=== PATIENT | male | born 1930 | race Caucasian/White ===

== ENCOUNTER → 2017-01-01 | Outpatient (CLI) | payer MEDICARE, OTHER ==
[~2017-01-01] MED LIST: ALBUTEROL2.5 MG/0.5 INH; ALBUTEROL2.5 MG/3 M INH; ALBUTEROL2.5 MG/31 INH; ALDACTONE25 MG PO; ASACOL HD800 MG PO; AUGMENTIN 875-1 EACH PO; B COMPLEX1 EACH PO; BACITRACIN1 PKT TOP; BENADRYL 2% CREAM2 % TOP; BENADRYL12.5 MG/5 PO; BUMETANIDE2 MG PO; CIPRO500 MG PO; CITROMA296 ML PO; COLACE100 MG PO; COMBIVENT RESPIM4 GM INH; COMPLEX B-1001 EACH PO; CORDARONE,PACE200 MG PO; COREG12.5 M1 PO; COREG12.5 MG PO; COREG6.25 MG PO; COZAAR50 MG PO; DELTASONE20 MG PO; DOXYCYCLINE100 MG PO; DULERA 200 MCG/51 EA INH; ELIQUIS5 MG PO; ENTRESTO 24 MG1 EACH PO; FEOSOL325 MG PO; FLEXERIL10 MG PO; FLORASTOR250 MG PO; GUAIFENESIN-DM10 ML PO; IPRAT-ALBUT 0.5-3 ML INH; K-TAB 10MEQ10 MEQ PO; K-TAB ER20 MEQ PO; KLOR-CON 1010 MEQ PO; LANOXIN (DIGI125 MCG PO; LASIX80 MG PO; LEVAQUIN 250 M250 MG PO; LEVOTHROID (S112 MCG PO; LIPITOR20 M1 PO; LIPITOR40 MG PO; MAG-OX-400(241400 MG PO; MAGNESIUM OXID420 MG PO; MAGOX 400400 MG PO; METOLAZONE5 MG PO; MILK OF MA400 MG/5 M PO; MIRALAX17 GM PO; MULTI VITAMIN1 EACH PO; MYCOLOG OINTMEN15 GM TOP; MYCOSTATIN CREA30 GM TOP; NORCO 10-325 T1 EACH PO; NORCO 5-325 MG1 TAB PO; OSCAL + D500 MG PO; PERCOCET 5-3251 EACH PO; PROTONIX40 MG PO; PROVENTIL OR V6.7 GM INH; ROBITUSSIN DM120 ML PO; SENNA8.6 MG PO; SENOKOT S (S1 TABLET PO; SINEMET 25-1001 EACH PO; SPIRIVA HANDIHA1 KIT INH; SPIRONOLACTONE25 MG PO; STOOL SOFTENER1 EACH PO; SYMBICORT 16010.2 GM INH; SYNTHROID100 MCG PO; THERAGRAN-M1 TAB PO; TYLENOL325 MG PO; ULTRAM50 MG PO; VITAMIN D2000 UNIT PO; VOLTAREN 1% GE100 GM TOP; XARELTO15 MG PO; ZAROXOLYN2.5 MG PO; ZAROXOLYN5 MG PO; ZYLOPRIM100 MG PO; [UNRECOGNIZED DRUG - OTHER] PO
== END | disposition disaster alternative care site (69) ==
LOC: GRAD 12-25 10:00
DX: Z48.812 Encounter for surgical aftercare following surgery on the circulatory system (principal); Z95.828 Presence of other vascular implants and grafts

== ENCOUNTER → 2017-01-11 | Outpatient (CLI) | payer MEDICARE, OTHER | END | disposition disaster alternative care site (69) | LOC: GRAD 11:59 | DX: I50.42 Chronic combined systolic (congestive) and diastolic (congestive) heart failure (principal); I35.0 Nonrheumatic aortic (valve) stenosis; R06.00 Dyspnea, unspecified; I51.7 Cardiomegaly ==

== ENCOUNTER 2017-01-18 12:49 | Inpatient (IN) | payer MEDICARE, OTHER ==
[~2017-01-18] VITALS: Ht 185.4 cm; Wt 100.9 kg
--- NOTE | ~2017-01-18 | CON ---
PATIENT'S NAME: OLGA FOSTER [facility] AGE: 86 Y [address] ROOM: G6315 [place], [place] [address] LOCATION: GPCU ADMIT DATE: 01/18/2017 Consultation DISCHARGE DATE: FAMILY PHYSICIAN: Remy Gilman MD ATTENDING PHYSICIAN: EMMA PEREZ DATE OF CONSULTATION: 01/19/2017 REASON FOR CONSULTATION: DOREEN on CKD stage 3 to stage 4. 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 On routine lab evaluation, creatinine was found to be 3.8, which is much higher than his baseline of 1.8 to 2.5 Nephrology consultation has been called for non-oliguric DOREEN on CKD 3-4. As per the old record suggested that he was well compensated on fairly aggressive diuretic regimen in the past. However most recently, he was started on Entresto and since then, his blood pressure appears to be low along with complain of some diarrhea. He went to [facility] when his systolic blood pressure was found to be in 70s, he stopped the Entresto since yesterday. However, when he presented to the ER, his blood pressure was between 100-110 range. He was also complaining of some orthostatic symptoms including dizziness and lightheadedness especially while changing posture. No complaint of chest pain or palpitation, but has significant shortness of breath, orthopnea, and PND. No urinary symptoms including dysuria, urgency, however, has noticed significant decrease in urinary output in the last couple of days. As mentioned above, he had some diarrhea after starting Entresto, but no history of nausea, vomiting, or hematochezia. REVIEW OF SYSTEMS: GENERAL: No fever. No chills or rigor. HEENT: No sore throat. No sinus congestion. CVS: No chest pain. Significant exertional shortness of breath. Some leg swelling. RESPIRATORY: Significant shortness of breath. No cough. No wheezing. GENITOURINARY: No pain with urination. No increased frequency. No nocturia. GASTROINTESTINAL: No abdominal pain. No abdominal distention. No nausea or vomiting, but diarrhea after starting Entresto. NEUROLOGIC: No weakness. No seizures. SKIN: No rash. No itching. ALLERGIES: No seasonal allergy. No hayfever. ENDOCRINE: No heat intolerance. No cold intolerance. PSYCHIATRIC: No sadness. No crying spells. No history of panic attack. PAST MEDICAL HISTORY: 1. Coronary artery disease, but no history of DSA or stenting. 2. Ischemic cardiomyopathy with HFrEF, ejection fraction of 30%-40% on most recent echo. 3. Abdominal aortic aneurysm, status post stenting. 4. CKD stage 3 to 4 with baseline creatinine of 1.8 to 2.5. 5. Anemia of chronic disease. 6. Parkinson disease. 7. Atrial fibrillation, not on long-term anticoagulation secondary to GI bleed. 8. CVA. 9. 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 10. COPD. 11. Hypothyroidism.PATIENT'S NAME: OLGA FOSTER [facility] AGE: 86 Y [address] ROOM: [place] [address] LOCATION: [facility] ADMIT DATE: 01/18/2017 Consultation DISCHARGE DATE: FAMILY PHYSICIAN: Remy Gilman MD ATTENDING PHYSICIAN: EMMA PEREZ MEDICATIONS: As per DEC. ALLERGIES: TO IODINATED CONTRAST. SOCIAL HISTORY: Lifelong smoker, stopped 3 years pack; used to drink alcohol as well, stopped few years ago. Lives at home with his . FAMILY HISTORY: Negative for any heart disease or any kidney disease. PHYSICAL EXAMINATION: VITAL SIGNS: Blood pressure at this point is 100/50, respiratory rate 18 to 22, saturation 92% on room air, heart rate 72. GENERAL: Not in apparent distress. HEAD: Moist mucous membranes. Bilateral PERRLA, EOMI. NECK: Positive for JVD. No thyromegaly or lymphadenopathy. CVS: S1 and S2 normal, regular rate and rhythm. No murmur, rub, gallop. CHEST: Bibasilar crackles. Otherwise no wheezing or rhonchi. ABDOMEN: Soft, nontender, nondistended. Bowel sounds present. EXTREMITIES: No cyanosis, clubbing, jaundice. At least 1+ dependent edema. There are bilateral venous stasis changes in bilateral lower extremities. MUSCULOSKELETAL: No limitation of range of motion. SKIN: No pallor, cyanosis, icterus. As mentioned above, there are venous stasis changes on bilateral lower extremities. DISABILITY ADVOCATE: Alert and oriented x3. No gross findings. LAB: Troponin 0.0304. CBC: Hemoglobin 11.8, WBC 8.3, platelet 189. Chemistry: Sodium 135, potassium 3.7, chloride 98, bicarbonate 23, BUN 72, creatinine 3.1, glucose 109, calcium 8.8, total protein 7.9, albumin 3.7, AST 29, ALT 18, alkaline phosphatase 102, total bilirubin 0.6. UA specific gravity 1.010, pH 6.5, positive LE, negative nitrite, negative protein, positive 1+ blood, wbc's 2-5, rbc's rare, rare bacteria. Urine sodium 48, urine potassium 71, urine osmolality 324. ProBNP 2303. ASSESSMENT AND PLAN: 1. Decompensated systolic heart failure with increasing weight gain and shortness of breath possibly secondary to failure of diuresis with hypotension after starting Entresto. We will hold the Entresto for now and will also decrease the Coreg dose to 3.125 mg from tomorrow and hold Coreg if the systolic blood pressure less than 120. The patient was given a 2 mg dose of Bumex along with 10 mg of metolazone, the creatinine has improved significantly from 3.8 to 3.1 this morning. We will continue on Bumex and metolazone at the current dose and with holding antihypertensive medication will help in dialysis. We need a Mai catheter for strict intake output monitoring. We will order renal ultrasound. Please do daily standing weight. Avoid any further nephrotoxin exposure and maintain hemodynamic stability with MAP more than 65.PATIENT'S NAME: OLGA FOSTER [facility] AGE: 86 Y [address] ROOM: [id number] [place] [id number] LOCATION: [facility] ADMIT DATE: 01/18/2017 Consultation DISCHARGE DATE: FAMILY PHYSICIAN: Remy Gilman MD ATTENDING PHYSICIAN: EMMA PEREZ 2. Decompensated heart failure, diuresis as above. Cardiology is on board. They want the ICD to be interrogated. The patient has ischemic cardiomyopathy. We will repeat the echocardiography. If the ejection fraction drops further, the patient probably will need a cardiac cath. Further recommendation as per Cardiology. 3. Acute kidney injury on chronic kidney disease stage 3 to stage 4, possibly secondary to cardiorenal syndrome. We will diurese as above. No more Entresto at this point, especially in context of acute kidney injury, we will restart it when necessary. Decrease Coreg dose were to get some adequate diuresis with elevation of blood pressure. 4. Atrial fibrillation, not on long-term anticoagulation due to gastrointestinal bleed. Currently, Cardiology is following. We will defer further management as per Cardiology. 5. Anemia of chronic disease. Hemoglobin is in the goal range. At this point, we will just continue to monitor it. Thank you for allowing me to participate in this patient's care. We will closely monitor the patient's progress along with you. SAUD JACOBSEN MD /modl /[id number] d: 01/19/17 1919 t: 01/20/17 1307, CONSULTATION REPORT
--- NOTE | ~2017-01-18 | HP ---
PATIENT'S NAME: OLGA FOSTER [facility] AGE: 86 Y [address] ROOM: [address] [place], [place] [address] LOCATION: GPCU ADMIT DATE: 01/18/2017 History & Physical DISCHARGE DATE: FAMILY PHYSICIAN: Remy Gilman MD ATTENDING PHYSICIAN: EMMA PEREZ DATE OF SERVICE: CHIEF COMPLAINT: Weight gain and increasing shortness of breath. HISTORY OF PRESENT ILLNESS: An 86-year-old gentleman with a past medical history of coronary artery disease, ischemic cardiomyopathy, heart failure with reduced ejection fraction, as well as chronic kidney disease stage 3-4, presented to the emergency department after he keeps gaining on weight as well as getting more short of breath over the course of last 2 weeks. He was seen in his primary care physician's office on January 09, 2017, as well as January 16, 2017. Primary care physician is Dr. Gilman, who gave him on the first encounter IV Lasix and then put him on Entresto. The patient today stated that he was not able to get a lot of volume off him, and he is getting increased swelling in his legs, and he has gained 13 pounds of weight in the last 2 weeks. He also takes blood pressure at home, and his blood pressure was low in home with the systolics in 86 and 76. Today, he is accompanied by his daughter. On further inquiry, he did describe that he is having diarrhea since he is taking this new medication Entresto prescribed Dr. Gilman. On further review of system, he is endorsing lightheadedness, but denied any chest pain, any palpitations, any burning on urination, PND, or orthopnea. He did endorse having bloating of his stomach with diarrhea, but no blood was witnessed in the stools. REVIEW OF SYSTEMS: All other systems were reviewed and were negative except for what is mentioned in the HPI. PAST MEDICAL HISTORY: Coronary artery disease, no history of stents; ischemic cardiomyopathy with ejection fraction 30% to 40% on the last echo; chronic kidney disease stage 3- 4; abdominal aortic aneurysm, status post stenting; anemia of chronic disease; hypertension; Parkinson's; atrial fibrillation, not on any anticoagulation anymore secondary to recurrent GI bleeding; CVA; history of left atrial thrombus; COPD; hypothyroidism. MEDICATIONS: Please see MAR. PATIENT'S NAME: OLGA FOSTER [facility] AGE: 86 Y [address] ROOM: [address] [place] [address] LOCATION: [facility] ADMIT DATE: 01/18/2017 History & Physical DISCHARGE DATE: FAMILY PHYSICIAN: Remy Gilman MD ATTENDING PHYSICIAN: EMMA PEREZ ALLERGIES: THE PATIENT IS ALLERGIC TO IODINATED CONTRAST. SOCIAL HISTORY: The patient is a lifelong smoker, quit smoking 3 years ago. Lives at home with his . FAMILY HISTORY: Family history is negative for any heart disease. PHYSICAL EXAMINATION: VITAL SIGNS: Blood pressure 147/67, 18, 92% on room air, heart rate 72. GENERAL: No acute distress. Alert and oriented x3. HEAD: Atraumatic, normocephalic. EYES: Nonicteric. No pallor. OROPHARYNX: Moist mucous membranes. CARDIOVASCULAR S1, S2. Systolic ejection murmur at the apex radiating to the axilla. LUNGS: Bilateral crepitations, basal and diffuse expiratory wheezes. ABDOMEN: Soft, some tenderness noted. EXTREMITIES: Left lower extremity edema. PSYCHIATRIC: Normal affect, mood, and speech. NEUROLOGIC: Cranial nerves 2 through 12 intact. No motor or sensory deficit. X-RAYS: Chest x-ray was done in the emergency department which on my review did show some mild vascular congestion without any definitive infiltrate or pneumothorax. EKG was done, which showed paced ventricular rhythm. LAB WORK: Lab work in the emergency department today showed a proBNP of 2303. Troponin first set was 0.304. White count of 9.0, hemoglobin 13, platelets 215. BUN 74, creatinine of 3.8, creatinine of note was 2.4 on 01/09/2017. Urinalysis is pending. TSH is 5.89. ASSESSMENT AND PLAN: 1. Acute congestive heart failure, systolic. 2. Heart failure with reduced ejection fraction, exacerbation, atrial fibrillation, status post ablation/pacemaker, not on oral anticoagulation. 3. Acute kidney injury on top of chronic kidney disease, stage 3-4. Creatinine on 01/09/2017 was 2.4 and today it is 3.8. 4. Elevated troponins. 5. Anemia of chronic disease. 6. Hypertension. PATIENT'S NAME: OLGA FOSTER [facility] AGE: 86 Y [address] [place]: [facility] [place], [place] [address] LOCATION: [facility] ADMIT DATE: 01/18/2017 History & Physical DISCHARGE DATE: FAMILY PHYSICIAN: Remy Gilman MD ATTENDING PHYSICIAN: EMMA PEREZ 7. Parkinsonism. 8. History of left atrial thrombus, not on any anticoagulation. 9. History of cerebrovascular accident. PLAN: We are going to admit this patient to the PCU. The patient has advanced multiple comorbidities. Given that he was given Lasix and he is having diarrhea, there is a question that whether it is prerenal or cardiorenal in etiology. We will obtain nephrology consultation to help with that. At this point, given his chest x-ray findings and physical findings, I believe he is volume overloaded and will need a bigger dose of Bumex in hope that his kidney function improves with that. He also has complicated heart failure and recent medication, Entresto, being started by his primary care and dye colorist dyer, Dr. Gilman. I would obtain a cardiology consultation to optimize the medications on that. The patient is not on any therapeutic oral anticoagulation. We would continue the heparin with the DVT prophylactic doses. Once the home medications are reconciled, we will resume the home medications as appropriate. Code status was discussed with the daughter and the patient is full code. MD CASTRO GIVENS/ignacio /[id number] D: [id number] T: [id number] HISTORY & PHYSICAL
--- NOTE | ~2017-01-18 | CON ---
PATIENT'S NAME: OLGA REES [facility] AGE: 86 Y [address] ROOM: [address] [place] [address] LOCATION: GPCU ADMIT DATE: 01/18/2017 Consultation DISCHARGE DATE: FAMILY PHYSICIAN: Remy Gilman MD ATTENDING PHYSICIAN: EMMA PEREZ REASON FOR CONSULT: CHF exacerbation. HISTORY OF PRESENT ILLNESS: Mr. Rees is a pleasant 86-year-old male with history of heart failure with reduced ejection fraction. He has been on followup with Dr. Ambriz. The patient stated that he was recently started on Entresto and since then he has been having diarrhea with 2 to 3 loose watery stools per day. He is also being monitored by the [facility] and the patient had blood pressure checked today and was found to be hypotensive with systolic blood pressure in the 70s and was advised by the remote monitoring at the [facility] to seek medical attention. The patient was brought here for further management. According to his daughter, the patient is physically not very active and his functional capacity is limited to going from one room to another. He does not usually go to even collect his mail and his movements are usually confined to the home. He uses a walker. He denied any chest pain. He has chronic shortness of breath; however, denied any worsening. He denied any palpitations. No history of presyncope or syncopal episodes. PAST MEDICAL HISTORY: The patient has a past medical history of heart failure with reduced ejection fraction, history of possible ND, status post ICD placement, history of chronic atrial fibrillation, not on oral anticoagulation due to history of recurrent GI bleed, hypertension, history of left atrial appendage thrombus, COPD, history of CVA, obesity, and CKD. PERSONAL HISTORY: He quit smoking several years ago. He used to drink alcohol every day in the past and has stopped for last few years. SOCIAL HISTORY: The patient is and lives with his . MEDICATIONS: His current cardiac medications at the time of admission included: 1. Amiodarone 200 mg daily. 2. Atorvastatin 20 mg daily. 3. Carvedilol 6.25 mg b.i.d. 4. Furosemide 80 mg b.i.d. 5. Metolazone 2.5 mg daily as needed. PATIENT'S NAME: OLGA REES [facility] AGE: 86 Y [address] ROOM: [address] [place], [place] [address] LOCATION: GPCU ADMIT DATE: 01/18/2017 Consultation DISCHARGE DATE: FAMILY PHYSICIAN: Remy Gilman MD ATTENDING PHYSICIAN: EMMA PEREZ 6. Potassium 10 mEq twice daily. 7. Spironolactone 12.5 mg daily. The patient was tried on Entresto; however due to diarrhea, it was discontinued. PHYSICAL EXAMINATION: GENERAL: On examination, the patient is awake, alert, and oriented, and in no apparent distress. VITAL SIGNS: His pulse rate is 68 beats per minute. Blood pressure on lying down is 133/63, on sitting up it is 136/60 and on standing up 136/68. The patient is afebrile HEENT: His head is atraumatic and normocephalic. Tongue is moist. NECK: No significant cervical lymphadenopathy is present. No significant jugular venous distention is present. CARDIOVASCULAR: S1, S2 are audible. They are irregular in rate and rhythm. Grade 3/6 ejection systolic murmur is audible all over precordium. RESPIRATORY: Bilateral vesicular breath sounds are audible with prolonged expiration. Bilateral expiratory rhonchi are audible. ABDOMEN: Abdomen is distended. It is soft, nontender. Bowel sounds are present. EXTREMITIES: Showed 3+ bilateral pedal edema up to knee. NEUROLOGIC: The patient is awake, alert, and oriented. SKIN: Skin is warm and dry. LABORATORY DATA: Sodium 135, potassium 4.3, chloride 95, CO2 25, glucose 98, BUN 74, creatinine 3.8. His previous creatinine level in May 2016 was 1.3 and his baseline was 1.4 to 1.7. AST 29, ALT 18, CPK 96, CK-MB 3.9, troponin 0.26, proBNP 2303. White blood cell count 9, hemoglobin 13, platelet count 215. His recent CT scan of the chest showed cardiac enlargement with no vascular congestion. His echocardiogram in March 2015 showed ejection fraction of 35% to 40%. His ASH showed left atrial appendage thrombus and spontaneous echo contrast in left atrial appendage and plmpmvmg-uu-ufllyy aortic insufficiency. ASSESSMENT AND PLAN: 1. Heart failure with reduced ejection fraction. 2. Ischemic cardiomyopathy, status post internal cardioverter defibrillator placement. 3. Mild elevation in troponin. 4. Sjvyx-dk-garfqch kidney disease. 5. Obesity. 6. Chronic obstructive pulmonary disease. 7. Hypothyroidism. 8. Abdominal aortic aneurysm, status post repair. PATIENT'S NAME: OLGA REES [facility] AGE: 86 Y [address] ROOM: [place] [address] LOCATION: GPCU ADMIT DATE: 01/18/2017 Consultation DISCHARGE DATE: FAMILY PHYSICIAN: Remy Gilman MD ATTENDING PHYSICIAN: EMMA PEREZ RECOMMENDATIONS: Please monitor the patient on Telemetry. Monitor intake and output and daily weights. In view of worsening of renal function, diuretics are being held, pending nephrology evaluation. Continue medical therapy with amiodarone. Obtain ICD interrogation. Obtain 2D echocardiogram in a.m. if not done recently. Obtain medical records from Dr. Ambriz's office. Restart diuretics once renal functions are stable. The patient has a history of atrial fibrillation; however has had recurrent GI bleeds and he could not tolerate anticoagulants in the past. Discussed with the patient and his daughter risks and benefits of anticoagulation and they do not want retrial of anticoagulation. The patient was also referred for LARIAT procedure in the past; however, in view of left atrial appendage thrombus, it could not be done. The patient also has very poor functional capacity. In view of his comorbid medical conditions, poor functional capacity, and advanced age , overall prognosis is guarded. We will maximize medical therapy as tolerated. Management of his non cardiac medical problems per hospitalist team. We will follow the patient along with you. The plan of care was discussed with the patient, his , and nursing staff. Thank you for allowing us in taking part in the care of this pleasant patient. MD MAGDALENA CROWLEY/ignacio /[id number] d: 01/19/17 0300 t: 01/22/17 1422, CONSULTATION REPORT
--- NOTE | ~2017-01-18 | ECHO ---
Transthoracic Echocardiography Report (TTE) Demographics Patient Name OLGA FOSTER Date of Study 01/19/2017 Patient Number [id number] Visit Number [id number] Date of 1930 Room Number [address]15 Gender Male Number Age 86 year(s) Referring [facility] Remy Oakes Superintendent [employer] Evie Wilder RVT, Physician [facility] Physician Interpreting Julia Chisholm Stylist Apprentice Physician A Supervising Ordering Guy García MD, MD/MLP Physician Nurse Stress Screener And Blender Conclusions Contractility Score Summary At rest the following contractility abnormalities were noted: Hypokinesis of the Mid jessenia-lateral, the Mid anterior, the Mid jessenia-septal, the Mid infero-septal, the Mid inferior, the Mid infero-lateral, the Basal infero-lateral, the Apical inferior, the Apical septal, the Basal jessenia-septal, the Basal infero-septal, the Apical anterior, the Basal anterior, the Basal inferior, the Basal jessenia-lateral and the Apical cap segments; Akinesis of the Apical lateral segment. Summary The estimated left ventricular ejection fraction is 30-35%. Mild to moderate concentric left ventricular hypertrophy. Diastolic function indeterminate due to patient's arrhythmia. Dilated right ventricle with reduced function. Device lead noted in the right ventricle. The aortic valve is moderately sclerotic. Possibly severe aortic stenosis Dobutamine Echo or ASH may help Mild tricuspid regurgitation by color Doppler. There is mild pulmonary hypertension. The pulmonary pressure (RVSP) is 35 mmHg. Procedure Type of Study TTE procedure:2D Echocardiogram. Procedure Date Date: 01/19/2017 Start: 12:01 PM Study Location: [employer] Technical Quality: Adequate visualization Indications:Shortness of breath. Appropriate Use Criteria: 8 Patient Status: Routine HR: 64 bpm BP: 103/50 mmHg Allergies - Contrast. - Contrast. M-Mode/2D Measurements LV Diastolic Dimension: 4.9 cm LV Systolic Dimension: 4.04 cm LV Septum Diastolic: 1.4 cm LV PW Diastolic: 1.29 cm AO Root Dimension: 3.2 cm Cardiac Output: 1.64 l/min LA Dimension: 5.7 cm EF Estimated: 30 % LVOT: 2 cm LVOT VTI: 8.17 cm RV Base: 5.1 cm LV Stroke volume: 25.65 ml RV Length: 7.47 cm TAPSE: 1.56 cm TDI-S': 8.55 cm/s Doppler Measurements AV Peak Velocity: 2.12 m/s MV Peak E-Wave: 0.84 m/s AV Peak Gradient: 17.98 mmHg AV Mean Gradient: 12 mmHg MV P1/2t: 78 msec LVOT Peak Velocity: 0.44 m/s TR Velocity:2.76 m/s PV Peak Velocity: 1.31 m/s TR Gradient:30.47 mmHg PV Peak Gradient: 6.86 mmHg Estimated RAP:5 mmHg Estimated PASP: 35.47 mmHg Estimated RVSP: 35 mmHg E' Septal Velocity: 0.06 m/s E' Lateral Velocity: 0.1 m/s Findings Left Ventricle Mild to moderate concentric left ventricular hypertrophy. Diastolic function indeterminate due to patient's arrhythmia. Right Ventricle Dilated right ventricle with reduced function. Device lead noted in the right ventricle. Left Atrium The left atrium is mildly dilated. There is no evidence of patent foramen ovale or atrial septal defect by color Doppler. Right Atrium The right atrium is severely dilated. Mitral Valve Normal mitral valve structure and function. Aortic Valve The aortic valve is moderately sclerotic. Possibly severe aortic stenosis Dobutamine Echo or ASH may help Tricuspid Valve Mild tricuspid regurgitation by color Doppler. There is mild pulmonary hypertension. The pulmonary pressure (RVSP) is 35 mmHg. Pulmonic Valve Normal pulmonic valve structure and function. Pericardial Effusion No evidence of pericardial effusion. Miscellaneous Visualized portions of the aortic root and ascending aorta appear normal in size. Pleural Effusion No evidence of pleural effusion. Contractility Score LV regional wall motion:(0-Non visualized 1-Normal 2-Hypokinesis 3-Akinesis 4-Dyskinesis 5-Aneurysm) Signature dtt: Leela Dumont dtd: 01/19/17 1201 Physician Self Edit
--- NOTE | ~2017-01-18 | DS ---
PATIENT'S NAME: OLGA FOSTER [facility] AGE: 86 Y [address] ROOM: [id number] [place], [place] [address] LOCATION: GPCU ADMIT DATE: 01/18/2017 Discharge Summary DISCHARGE DATE: 01/23/2017 FAMILY PHYSICIAN: Remy Gilman MD ATTENDING PHYSICIAN: Cintia Tovar FINAL DIAGNOSES: 1. Acute on chronic systolic congestive heart failure. 2. Chronic atrial fibrillation, status post ablation with pacemaker. 3. Acute kidney injury on stage 4 chronic kidney disease. 4. Elevated troponin. 5. Essential hypertension. 6. Anemia of chronic disease. REASON FOR ADMISSION: The patient presented with complaints of weight gain and worsening respiratory status. He was also found to have a creatinine of 3.8, which is up from his baseline. LABORATORY DATA: His sodium on admission was 135, discharge 140; potassium on admission was 4.3, low was 3.5, and at discharge 4.2; BUN on admission was 74, discharge 72; creatinine on admission was 3.8, at discharge it was 2.6. Liver enzymes on admission were normal. Magnesium on admit 2.5, discharge 2.4. His cardiac enzymes on admission, his troponin on admission was 0.304 and remained in that range. ProBNP on admit was 2303. TSH was 5.898. White blood cell count on admission was 9, hemoglobin 13.3, hematocrit 39.3, MCV 101.8, and platelet count 215. PTT 27, pro time 9.9, and INR 1.0. Urinalysis did not show any evidence of infection. X-RAY DATA: Chest x-ray on admission did show a large cardiac silhouette. Ultrasound of his kidneys done on admission showed they were mildly atrophic. Echocardiogram read by Dr. Dumont, EF was 30-35% and concentric left ventricular hypertrophy, he had some dilated right ventricle with reduced function, and pulmonary pressure was 35. HOSPITAL COURSE: The patient was admitted to the hospital with a diagnosis of acute on chronic congestive heart failure. He was also noted to have an elevated creatinine up from his baseline. Nephrology was asked to see the patient as well as Cardiology. He did receive IV diuretics in the form of Bumex with metolazone. Cardiology did see him and did obtain some of his records from Dr. Ambriz at [facility]. His troponin was elevated, but it did not trend upward, so decision was made that we did not need to do any further evaluation. The patient did begin diuresing with Bumex and metolazone and his creatinine did slowly start to improve. His electrolytes were monitored as were his BUN and creatinine. The decision was made to hold his Coreg because he was hypotensive and it would make it difficult for them to PATIENT'S NAME: OLGA FOSTER [facility] AGE: 86 Y [address] ROOM: [id number] [place], [place] [address] LOCATION: GPCU ADMIT DATE: 01/18/2017 Discharge Summary DISCHARGE DATE: 01/23/2017 FAMILY PHYSICIAN: Remy Gilman MD ATTENDING PHYSICIAN: Cintia Tovar try and diurese him. He continued to feel better. He was taken off the IV diuretics and put on oral diuretics from the day, January 22. There was some concern about dosages of medication and history of having significant increase with his creatinine. After further discussion, his doses were adjusted slightly and it was felt that he was stable for discharge on January 23. DISCHARGE INSTRUCTIONS: To follow up with Dr. Ambriz at [facility] on February 14. There was some discussion about whether he needed to have his ICD converted to a biventricular pacer. Follow up with Lina Chavez on January 23 at 1:30. MEDICATIONS: 1. Coreg is to be held until he is seen by Dr. Ambriz. 2. His Lasix dose was changed to 60 mg in the morning and 40 mg at noon. 3. Synthroid 112 mcg daily. 4. Magnesium 400 mg daily. 5. Mesalamine 800 mg daily. 6. Zaroxolyn 5 mg at 7:30 in the morning. 7. Multivitamin daily. 8. Protonix 40 mg daily. 9. Florastor 250 mg twice daily. 10. Aldactone 12.5 mg twice daily. 11. Albuterol inhaled every 6 hours as needed. 12. Tylenol 325 mg every 4 hours as needed. 13. Mycostatin cream as needed for skin tears. 14. Sinemet 25/100 one tablet twice daily. 15. B complex vitamin 1 daily. 16. Allopurinol 200 mg daily. 17. Amiodarone 200 mg daily. 18. Lipitor 20 mg daily. 19. Symbicort 160-4.15 mcg 2 puffs twice daily. 20. Bacitracin ointment 1 apply topically twice a day. OVERALL PROGNOSIS: At discharge was fair. The patient did voice understanding of this. RODRI LOOMIS MD LAW/modl PATIENT'S NAME: OLGA FOSTER [facility] AGE: 86 Y [address] ROOM: [place] [address] [facility] ADMIT DATE: 01/18/2017 Discharge Summary DISCHARGE DATE: 01/23/2017 FAMILY PHYSICIAN: Remy Gimlan MD ATTENDING PHYSICIAN: Cintia Tovar /[id number] CC: MD Lina Rock, MCKINLEY, INSTRUCTION LIBRARIAN Diaz Ambriz MD d: 01/24/17 0309 t: 01/31/17 1815, DISCHARGE SUMMARY
--- NOTE | ~2017-01-18 | CON ---
PATIENT'S NAME: OLGA FOSTER [facility] AGE: 86 Y [address] ROOM: [facility] [place] [address] [facility] ADMIT DATE: 01/18/2017 Consultation DISCHARGE DATE: FAMILY PHYSICIAN: Remy Gilman MD ATTENDING PHYSICIAN: EMMA PEREZ ADDENDUM: ASSESSMENT AND PLAN: The patient has mild elevation in troponin. The patient denied any symptoms suggestive of angina or chest pain. The patient has acute on chronic renal failure with worsening renal function. Mild elevation in troponin is likely due to his abnormal renal function and his presentation is not suggestive of acute coronary syndrome. We will monitor serial cardiac enzymes. MD MAGDALENA CROWLEY/ignacio /[id number] d: 01/19/17 0054 t: 01/22/17 1418, CONSULTATION REPORT
--- NOTE | ~2017-01-18 | PUL ---
PATIENT'S NAME: OLGA FOSTER [facility] AGE: 86 Y [address] ROOM: [address] [address] LOCATION: GPCU ADMIT DATE: 01/18/2017 Pulmonary DISCHARGE DATE: 01/23/2017 FAMILY PHYSICIAN: Remy Gilman MD ATTENDING PHYSICIAN: Cintia Tovar NAME OF PROCEDURE: Overnight Pulse Oximetry DATE OF PROCEDURE: January 22 to January 23, 2017 REASON FOR EXAM: Nocturnal hypoxemia RESULTS: The test was performed on room air. The recording time was 8 hours, 9 minutes, and 36 seconds, with a total valid sampling time of 8 hours, 1 minute, and 32 seconds. The highest pulse was 117, lowest pulse was 54, with a mean pulse of 62. The highest SpO2 was 97%, lowest SpO2 was 85, with a mean SpO2 of 91.8%. The patient spent 10 minutes and 12 seconds with SpO2 less than 89%, representing 2.1% of the total sleep time. The desaturation event index was elevated at 12. PHYSICIAN INTERPRETATION: The patient has mild but significant nocturnal hypoxia and would qualify for supplemental oxygen as per Medicare criteria. However, because of his significant nocturnal hypoxia with an elevated desaturation event index a sleep study is recommended this time. MD SASCHA SCHAFFER/roberto /[id number] dtt: 01/25/17 1426 , WALTER MARCANO dtd: 01/25/17 1330
--- NOTE | ~2017-01-18 | ER ---
PATIENT'S NAME: OLGA FOSTER [facility] AGE: 86 Y [address] ROOM: [place] [address] LOCATION: GPCU ADMIT DATE: 01/18/2017 ER/Outpatient Report DISCHARGE DATE: FAMILY PHYSICIAN: Remy Gilman MD ATTENDING PHYSICIAN: EMMA PEREZ Time of Arrival: 1249 hours. Time of Evaluation: 1300 hours. CHIEF COMPLAINT: Shortness of breath, weakness. HISTORY OF PRESENT ILLNESS: An 86-year-old male presents to the ER, who states he has had increasing shortness of breath since Sunday. The patient's family states that he was evaluated on Sunday by his primary care physician, and he was started on Entresto on Sunday to help get his fluid off him. The patient states that since he has been on that medication, he has felt worse. He states that his blood pressure that he has been trending at home has been low, and shortness of breath has increased, and he feels more weak. His family states that he had recently had a CAT scan of his chest done, also Doppler's of his lower extremities done to make sure he did not have a DVT. The patient has not been running any fevers. He states he always has a dry cough. He denies any chest pain. No vomiting. He states his diarrhea started back up on him a couple of days ago. He states he does have a history of ulcerative colitis. The patient's daughter states that they did call their primary care physician, and they told them to come over here to the emergency room to have further evaluation done. ALLERGIES: CONTRAST AND CHLORHEXIDINE. MEDICATIONS: Please see medication list in nurse's notes. PAST MEDICAL HISTORY: 1. Parkinson's disease. 2. Ulcerative colitis. 3. CHF. 4. COPD. 5. Hypertension. 6. Atrial fibrillation. 7. Acid reflux. 8. Gout. 9. Hypercholesterolemia. PATIENT'S NAME: OLGA FOSTER [facility] AGE: 86 Y [address] ROOM: [place] [address] LOCATION: GPCU ADMIT DATE: 01/18/2017 ER/Outpatient Report DISCHARGE DATE: FAMILY PHYSICIAN: Remy Gilman MD ATTENDING PHYSICIAN: EMMA PEREZ 10. Hypokalemia. 11. Hypomagnesemia. 12. Hypothyroidism. SOCIAL HISTORY: He drinks couple of alcoholic drinks a day. Denies any smoking use. REVIEW OF SYSTEMS: A 10-point review of system was completed and was negative with the exception of those discussed in the HPI. PHYSICAL EXAMINATION: VITAL SIGNS: Weight 234 pounds stated, blood pressure is 147/70, pulse 67, respirations 18, temperature 97.3 degrees tympanically, saturations 95% on room air. GENERAL: An alert, calm, well-developed male, in no acute distress. HEENT: Head: Normocephalic. He does display moist mucous membranes. Eyes: Pupils are equal and reactive to light. NECK: Supple. No lymphadenopathy. LUNGS: Diminished throughout. No crackles or wheezing is heard. HEART: Irregular rate with a murmur noted. ABDOMEN: Soft. It is obese. It is nontender. He has good bowel sounds throughout. . Not done. RECTAL: Not done. EXTREMITIES: He does have pitting edema noted bilaterally. No cyanosis. He has good sensation distally to both of his feet. NEUROLOGIC: Cranial nerves 2 through 12 grossly intact. Gait was assisted with a walker but was steady. LABORATORY DATA AND X-RAYS: CBC: White count is 9.0, hemoglobin is 13.3, platelets 215, ANC is 7.1, INR is 1.0. CMS: Chloride 95, anion gap is 19.3, BUN 74, creatinine 3.8, estimated GFR is 15, sodium 135, potassium 4.3, magnesium is 2.5. CPK is 108, CK-MB is 4.3, troponin I is 0.304. TSH is 5.890. ProBNP is 2303. EKG shows a paced rhythm. Chest x-ray was negative for any infiltrate. IMPRESSION: 1. Congestive heart failure. 2. Renal insufficiency. 3. Elevated cardiac enzymes, most likely secondary to renal insufficiency. ASSESSMENT AND PLAN: The patient did rest comfortably his entire stay here in the emergency room. I did speak with Lina Chavez APRN regarding the patient, and I also called PATIENT'S NAME: OLGA FOSTER [facility] AGE: 86 Y [address] ROOM: [place] [address] LOCATION: GPCU ADMIT DATE: 01/18/2017 ER/Outpatient Report DISCHARGE DATE: FAMILY PHYSICIAN: Remy Gilman MD ATTENDING PHYSICIAN: EMMA PEREZ the Hospitalist Service, and they will be admitting the patient for further care. The patient and patient's daughter understand and agree with care. BEST HUDDLESTON PA-C FOR MD HANK YUEN/modl /[id number] d: 01/19/17 0144 t: 01/26/17 1825, OUTPATIENT REPORT
[~2017-01-18 12:49] MED LIST changes: -ALBUTEROL2.5 MG/3 M INH; -ALBUTEROL2.5 MG/31 INH; -AUGMENTIN 875-1 EACH PO; -BACITRACIN1 PKT TOP; -BUMETANIDE2 MG PO; -CIPRO500 MG PO; -ENTRESTO 24 MG1 EACH PO; -FLORASTOR250 MG PO; -GUAIFENESIN-DM10 ML PO; -K-TAB 10MEQ10 MEQ PO; -K-TAB ER20 MEQ PO; -LANOXIN (DIGI125 MCG PO; -LEVAQUIN 250 M250 MG PO; -MYCOSTATIN CREA30 GM TOP; -SENNA8.6 MG PO; -SPIRONOLACTONE25 MG PO; -ULTRAM50 MG PO; -VOLTAREN 1% GE100 GM TOP; -ZAROXOLYN2.5 MG PO
[2017-01-18 13:23] LABS: BASOPHIL % 0.4 %; EOSINOPHIL # 0.3 K/uL (0.0-0.5); EOSINOPHIL % 3.1 %; HEMATOCRIT 39.3 % (33.0-50.0); HEMOGLOBIN 13.3 g/dL (11.0-16.0); IMMATURE GRANULOCYTE % 0.3 %; LYMPHOCYTE # 0.7 K/uL (0.8-4.0); MCH 34.5 pg (27.0-34.0); MCHC 33.8 gm/dL (32.0-36.5); MCV 101.8 fl (83.0-98.0); MONOCYTE # 0.9 K/uL (0.0-1.0); MONOCYTE % 9.6 %; MPV 10.1 fl (9.4-12.4); NEUTROPHIL # (ANC) 7.1 K/uL (1.4-9.0); NEUTROPHIL % 78.6 %; NRBC % 0 /100WBC (0-0.00); PLATELET COUNT 215 K/uL (150-450); RBC 3.86 M/uL (3.50-5.50); RDW-CV 15.3 % (11.9-14.6)
[2017-01-18 13:37] LABS: PROTIME 9.9 SECONDS (9.6-11.1); PTT 27 SECONDS (25-32)
[2017-01-18 13:47] LABS: ALBUMIN 3.7 gm/dL (3.5-5.0); ANION GAP 19.3 (10.0-19.0); CALCIUM 8.9 mg/dL (8.5-10.5); CREATININE 3.8 mg/dL (0.6-1.3); MAGNESIUM 2.5 mg/dL (1.3-2.6); POTASSIUM 4.3 mMol/L (3.7-5.1); TOTAL BILIRUBIN 0.6 mg/dL (0.0-1.5); TOTAL PROTEIN 7.9 g/dL (6.0-8.4)
[2017-01-18] MEDS ORDERED: ALBUTEROL2.5 MG/3 M INH (16:10)
[2017-01-18] MEDS ORDERED: BACITRACIN1 PKT TOP (16:13)
[2017-01-18] MEDS ORDERED: ENTRESTO 24 MG1 EACH PO (16:15)
[2017-01-18] MEDS ORDERED: FLORASTOR250 MG PO (16:17)
[2017-01-18] MEDS ORDERED: MYCOSTATIN CREA30 GM TOP (16:20)
[2017-01-18] MEDS ORDERED: ULTRAM50 MG PO (16:23)
[2017-01-18] MEDS ORDERED: ALBUTEROL2.5 MG/31 INH (17:23)
--- NOTE | 2017-01-18 20:10 | NUR ---
Patient presented to emergency room with increased shortness of breath and weakness. Patient admitted to PCU at 1550. T 97.7, HR 64, BP 141/80, O2 95 room air, Resp 18. No complaints of pain other then his back. Patient has chronic pain in the back due to a fracture, refuses pain medication. Alert and oriented X 3. 1 assist, walker and gait belt. Heart murmur and distant heart sounds. Expiratory wheezes throughout. Hyperative bowel sounds, last bowel movement was 01/18/17 in the a.m. Radial and pedal pulses +2. Equal strength bilateral, upper and lower. Scattered bruising lower arms bilaterally. Pretibial edema +4, ankles and feet +3. Venous staining bilaterally lower legs. Peripheral IV right hand. Alergy to contrast dye and chlorhexadene. History of parkinson's, tremors observed. History of CHF, COPD, HTN, A-fib, GERD, Gout, high cholesterol, hypothyroidism and AAA repair. Patient also has 2 drinks/day alcohol. Pleasant and cooperative with cares.
--- NOTE | 2017-01-19 04:35 | NUR ---
Significant Event: PATIENT IS A/O X3. VSS. HR 60'S IN PACED RHYTHM. SBP 100-130'S. AFEBRILE. 02 SATS IN LOW TO MID 90'S ON RA. C/O CHRONIC BACK PAIN. PATIENT STATES TYELNOL DOESN'T HELP. PATIENT SAT UP IN CHAIR WILL WARM BLANKET TO BACK. CONTINUES TO HAVE WHEEZES THROUGHOUT WITH SOME CRACKLES IN BASES. UP WITH 1A WITH WALKER/GB. BOWELS ACTIVE. ESTRADA PLACED. HAD SOME DIFFICULTY ADVANCING ESTRADA TO COUDE ESTRADA CATHETER PLACED. 2MG IVP BUMEX GIVEN. HAD OVER 1000ML UOP. ON 1500 ML FLUID RESTRICTION. HAS BRUISING TO BILATERAL FOREARMS. REDNESS TO BOTTOM. YEAST TO GROINS. PRN NYSTATIN ORDERED. PATIENT HAS ON/OFF NUMBESS TO LEFT ARM. CT SCAN OF HEAD ORDERED. IV TO RIGHT HAND SL. CONTINUES TO HAVE 2+ EDEMA TO LOWER EXTREMITIES. Follow up: CARDIOLOGY/NEPHROLOGY BOTH CONSULTED AND WROTE ORDERS. CONTINUE TO MONITOR KIDNEY FUNCTION AND LABS.
[2017-01-19 05:38] LABS: ANION GAP 17.7 (10.0-19.0); CALCIUM 8.8 mg/dL (8.5-10.5); CREATININE 3.1 mg/dL (0.6-1.3); POTASSIUM 3.7 mMol/L (3.7-5.1)
[2017-01-19 05:47] LABS: BASOPHIL % 0.4 %; EOSINOPHIL # 0.3 K/uL (0.0-0.5); HEMATOCRIT 35.4 % (33.0-50.0); HEMOGLOBIN 11.8 g/dL (11.0-16.0); IMMATURE GRANULOCYTE % 0.5 %; LYMPHOCYTE # 0.7 K/uL (0.8-4.0); LYMPHOCYTE % 8.5 %; MCH 34.4 pg (27.0-34.0); MCHC 33.3 gm/dL (32.0-36.5); MCV 103.2 fl (83.0-98.0); MONOCYTE # 0.8 K/uL (0.0-1.0); MONOCYTE % 9.9 %; MPV 10.4 fl (9.4-12.4); NEUTROPHIL # (ANC) 6.5 K/uL (1.4-9.0); NEUTROPHIL % 77.7 %; NRBC % 0 /100WBC (0-0.00); PLATELET COUNT 189 K/uL (150-450); RBC 3.43 M/uL (3.50-5.50); RDW-CV 15.1 % (11.9-14.6); WBC 8.3 K/uL (4.0-11.0)
[2017-01-19 11:24] LABS: BILIRUBIN URINE NEGATIVE (NEGATIVE); BLOOD URINE 25 /UL (NEGATIVE); COLOR URINE YELLOW (YELLOW); GLUCOSE URINE NEGATIVE (NEGATIVE); KETONE URINE NEGATIVE (NEGATIVE); LEUKOCYTES URINE 25 /UL (NEGATIVE); NITRITE URINE NEGATIVE (NEGATIVE); PH URINE 6.5 (4.0-8.0); PROTEIN URINE NEGATIVE (NEGATIVE); TURBIDITY URINE CLEAR (CLEAR); UROBILINOGEN URINE NORMAL (NORMAL)
[2017-01-19 11:30] LABS: RBC URINE RARE #/HPF (NEGATIVE)
[2017-01-19 11:31] LABS: EPITHELIAL URINE NEGATIVE #/HPF (NEGATIVE)
[2017-01-19 11:33] LABS: BACTERIA URINE RARE (NEGATIVE); MUCUS URINE NEGATIVE (NEGATIVE)
--- NOTE | 2017-01-19 12:30 | NUR ---
Introduced self and role of care management to patient and a daughter. Patient lives in [place] with his . He uses a walker at home. His has dementia and he does the cooking and most of the housework. They have friends and family helping her while he is here. He plans home when ready for discharge. Daughter says if he needs HHC they would want [facility] out of [place], as he has had them before. He says he doesn't need HHC as he didn't feel like they did much for him last time. Will follow.
--- NOTE | 2017-01-19 13:31 | NUR ---
Significant Event: Pt A&Ox3. Upper lungs clear most of shift; upon 2nd assessment occasional expiratory wheezes were noted in the left upper lobe; expiratory wheezes were also noted in the left lower lobe most of the shift; diminished breath sounds in right lower lobe. Pt has 2 to 3+ edema in lower extremities. Ordered to hold Coreg this evening and continue to withold doses tomorrow if SBP<120; dose changed to 3.125mg. Bumex 2mg IVP BID and metolazone 10mg PO daily. Strict I&O, 1500ml Fluid restriction. Coude catheter in place, draining yellow urine-UA collected. Penile discharge noted this am along with reddness to the groin, Nystatin ordered PRN. Bowels active. IV to right hand D/C, left hand IV started. 1A gaitbelt/walker. Chronic backpain-pt refused Tylenol. Pt refused to lay down in bed multiple times throughout shift. HR in the 60's, SBP 100-110, O2 92-97. Follow Up: Both cardiology and nephrology consulted. Continue to monitor kidney function. Continue with plan of cares per orders. Pt pleasant with cares, daughter Josselyn present at bedside on/off [facility] shift.
[2017-01-20 04:28] LABS: ALBUMIN 3.2 gm/dL (3.5-5.0); ANION GAP 13.5 (10.0-19.0); CALCIUM 8.5 mg/dL (8.5-10.5); CREATININE 3.2 mg/dL (0.6-1.3); PHOSPHORUS 3.7 mg/dL (2.5-4.9); POTASSIUM 3.5 mMol/L (3.7-5.1)
--- NOTE | 2017-01-20 04:56 | NUR ---
A/O. HR 60s. SBP 90-110s. ROOM AIR. AFEBRILE. C/O PAIN TO LEGS. TYLENOL GIVEN PATIENT REQUEST CROW WRAP REMOVAL. ESTRADA INTACT 1700 UOP. 1A TO BATHROOM. BMx2 MODERATE LIQUID.
--- NOTE | 2017-01-20 17:23 | NUR ---
Significant Event:Patient has been up to chair most of the day. No c/o pain. Are holdomg Coreg for 2 days, decreased Bumex to 1 mg Bid. Dc'd Heparin. Has been on room air throughout day. Had 1300 ml urine output. Follow up:Monitor weight, I/O
--- NOTE | 2017-01-21 05:34 | NUR ---
Significant Event: DENIES PAIN ALL NIGHT. UP TO BR WITH 1 ASSIST. SLEEPING WELL IN CHAIR. REMAINS ON ROOM AIR. ESTRADA REMAINS PATENT WITH GOOD URINE OUTPUT. Follow up:
[2017-01-21 06:50] LABS: ALBUMIN 3.3 gm/dL (3.5-5.0); ANION GAP 12.5 (10.0-19.0); CALCIUM 8.7 mg/dL (8.5-10.5); CREATININE 2.8 mg/dL (0.6-1.3); PHOSPHORUS 3.9 mg/dL (2.5-4.9); POTASSIUM 3.5 mMol/L (3.7-5.1)
--- NOTE | 2017-01-21 18:43 | NUR ---
Significant Event:Patient has had a pretty good day. KCL 40 mEq PO X1. PT ordered today. Remains on room air. No other changes. Follow up:
--- NOTE | 2017-01-22 05:45 | NUR ---
Significant Event: ESTRADA PATENT. C/O NO PAIN ALL NIGHT. UP TO BR X1. Follow up:
[2017-01-22 07:48] LABS: ALBUMIN 3.4 gm/dL (3.5-5.0); ANION GAP 11.9 (10.0-19.0); CALCIUM 8.8 mg/dL (8.5-10.5); CREATININE 2.7 mg/dL (0.6-1.3); PHOSPHORUS 3.4 mg/dL (2.5-4.9); POTASSIUM 3.9 mMol/L (3.7-5.1)
--- NOTE | 2017-01-22 11:15 | NUR ---
Spoke with patient and he hopes to go home today. He says Dr. Villagomez told him he could go home and he is hoping the hospitalist will let him go home. Asked him again about HHC and he does not want HHC. He says he doesn't want to be homebound and he doesn't feel he needs HHC. Will follow.
--- NOTE | 2017-01-22 16:25 | NUR ---
Significant Event: A/O X3. UP WITH 1 ASSIST, GB AND WALKER. AMBULATED IN HALLS WITH PT X2. VSS. DENIES PAIN. ESTRADA CATHETER DC'D. VOIDING WELL SINCE. OVERNIGHT TREND OX TONIGHT. MED ADJUSTMENTS MADE. PIV TO LEFT HAND SL'D. Follow up:POSSIBLE DISCHARGE TOMORROW.
--- NOTE | 2017-01-23 05:09 | NUR ---
Significant Event: Patient alert and oriented x3. SBP 90s-130s. HR 60s-90s. All other vital signs stable. On RA. Trend Ox study completed this shift. 1500ml fluid restriction continues. Patient tolerates well. Up with 1 assist, gait belt, and walker. 900ml uop. PIV SL'd. No complaints of pain. Slept in chair. Calm and cooperative with all cares. Follow up: D/C home today?
[2017-01-23 05:52] LABS: ALBUMIN 3.3 gm/dL (3.5-5.0); CALCIUM 8.8 mg/dL (8.5-10.5); CREATININE 2.6 mg/dL (0.6-1.3); PHOSPHORUS 3.4 mg/dL (2.5-4.9)
[2017-01-23 05:53] LABS: ANION GAP 14.2 (10.0-19.0); POTASSIUM 4.2 mMol/L (3.7-5.1)
[2017-01-23] MEDS ORDERED: LASIX80 MG PO (13:31)
--- NOTE | 2017-01-23 16:11 | NUR ---
Introduced self and purpose of heart healthy education and care transitions. Patient known to me from prior hospitalizations. Received the Heart Healthy calendar in our end of year mailing. Information reviewed, patient verbalized understanding and compliance.
--- NOTE | 2017-01-23 17:26 | NUR ---
DISCHARGE: A/O X3. UP WITH MINIMAL ASSIST, GB AND WALKER. IV TO LEFT HAND DC'D, NO COMPLICATIONS. VSS. DENIES PAIN. DISCHARGE INSTRUCTIONS AND MEDICATIONS REVIEWED WITH PATIENT AND DAUGHTER. QUESTIONS ANSWERED. FOLLOW-UP APPOINTMENTS DISCUSSED. NO FURTHER QUESTIONS. TAKEN TO [facility] BY WHEELCHAIR @ 1610 BY [employer]IBBON CLEANER.
[2017-04-10] MEDS ORDERED: ULTRAM50 MG PO (16:16)
[2017-05-21] MEDS ORDERED: MILK OF MA400 MG/5 M PO (14:01)
[2017-05-21] MEDS ORDERED: SENNA8.6 MG PO (14:01)
[2017-05-21] MEDS ORDERED: GUAIFENESIN-DM10 ML PO (14:13)
[2017-07-05] MEDS ORDERED: LEVAQUIN 250 M250 MG PO (16:04)
== END 2017-01-23 16:09 | disposition disaster alternative care site (69) | DRG 291 ==
LOC: GMED 12:49 → GPCU 15:03
PROVIDERS: Family Medicine; Internal Medicine Nephrology; ADMIT Internal Medicine
DX: I13.0 Hypertensive heart and chronic kidney disease with heart failure and stage 1 through stage 4 chronic kidney disease, or unspecified chronic kidney disease (principal); I50.23 Acute on chronic systolic (congestive) heart failure; N18.4 Chronic kidney disease, stage 4 (severe); I95.9 Hypotension, unspecified; I48.1 Persistent atrial fibrillation; G20 Parkinson's disease; N17.9 Acute kidney failure, unspecified; J44.9 Chronic obstructive pulmonary disease, unspecified; D63.8 Anemia in other chronic diseases classified elsewhere; R04.0 Epistaxis; E03.9 Hypothyroidism, unspecified; E66.9 Obesity, unspecified; I25.10 Atherosclerotic heart disease of native coronary artery without angina pectoris; I25.5 Ischemic cardiomyopathy; R19.7 Diarrhea, unspecified; Z86.73 Personal history of transient ischemic attack (TIA), and cerebral infarction without residual deficits; Z95.810 Presence of automatic (implantable) cardiac defibrillator; Z87.891 Personal history of nicotine dependence
CPT/HCPCS: J1644

== ENCOUNTER → 2017-01-30 | Outpatient (CLI) | payer MEDICARE, OTHER ==
[~2017-01-30] MED LIST changes: +ALBUTEROL2.5 MG/3 M INH; +ALBUTEROL2.5 MG/31 INH; +AUGMENTIN 875-1 EACH PO; +BACITRACIN1 PKT TOP; +BUMETANIDE2 MG PO; +CIPRO500 MG PO; +ENTRESTO 24 MG1 EACH PO; +FLORASTOR250 MG PO; +GUAIFENESIN-DM10 ML PO; +K-TAB 10MEQ10 MEQ PO; +K-TAB ER20 MEQ PO; +LANOXIN (DIGI125 MCG PO; +LEVAQUIN 250 M250 MG PO; +MYCOSTATIN CREA30 GM TOP; +SENNA8.6 MG PO; +SPIRONOLACTONE25 MG PO; +ULTRAM50 MG PO; +VOLTAREN 1% GE100 GM TOP; +ZAROXOLYN2.5 MG PO
== END | disposition disaster alternative care site (69) ==
LOC: LGSMG 14:00
DX: Z00.00 Encounter for general adult medical examination without abnormal findings (principal); I50.41 Acute combined systolic (congestive) and diastolic (congestive) heart failure; I50.42 Chronic combined systolic (congestive) and diastolic (congestive) heart failure; I48.91 Unspecified atrial fibrillation; N18.4 Chronic kidney disease, stage 4 (severe); E78.5 Hyperlipidemia, unspecified; I10 Essential (primary) hypertension; E87.6 Hypokalemia; E87.1 Hypo-osmolality and hyponatremia; Z79.899 Other long term (current) drug therapy

== ENCOUNTER → 2017-02-27 | Outpatient (CLI) | payer MEDICARE, OTHER | END | disposition disaster alternative care site (69) | LOC: LGSMG 14:45 | DX: M25.529 Pain in unspecified elbow (principal) ==

== ENCOUNTER 2017-03-13 16:20 | Observation (INO) | payer MEDICARE, OTHER ==
[~2017-03-13] VITALS: Ht 185.4 cm; Wt 99.6 kg
--- NOTE | ~2017-03-13 | CON ---
PATIENT'S NAME: OLGA FOSTER [facility] AGE: 86 Y [address] ROOM: [address] [place], [place] [address] LOCATION: GPCU ADMIT DATE: 03/13/2017 Consultation DISCHARGE DATE: FAMILY PHYSICIAN: Remy Gilman MD ATTENDING PHYSICIAN: Agustin [place] DATE OF CONSULTATION: 03/14/2017 REFERRING PHYSICIAN: Agustin [place] This is a [facility] Nephrology consultation. REASON FOR CONSULTATION: Chronic kidney disease, stage 3 to 4. HISTORY OF PRESENT ILLNESS: This is an 86-year-old gentleman with a longstanding history of coronary artery disease and ischemic cardiomyopathy with last reported ejection fraction of 35-40%. The patient does have a fluctuating creatinine between 2.0-2.5 and was admitted today for right shoulder pain by his primary care physician. The patient reportedly had been down to [facility] in [place] by Dr. Becerril and was evaluated for aortic stenosis. He did undergo a dobutamine stress test as well as a left heart catheterization that did reveal severe aortic stenosis; however, the outcomes were reportedly better than anticipated. During his stay at the hospital, the patient was transferred from the stool to the chair and at that time, he did feel a tear in his right shoulder. He was discharged to home health and has been following with Home Health since. He did follow up with his primary care physician at a 2-week interval today and subsequently the patient's pain was unable to be managed outpatient. The patient was therefore admitted for right shoulder pain and pain management and Dr. Villagomez has been asked to consult on the patient for his underlying chronic kidney disease. REVIEW OF SYSTEMS: GENERAL: Denies any fever, chills, or night sweats. HEENT: Eyes: No double vision or blurred vision. Nose: No epistaxis or rhinorrhea. Mouth: No gingival bleeding. Throat: No sore throat, hoarseness, or cough. RESPIRATORY: Denies any new onset wheezing or hemoptysis. CARDIOVASCULAR: Denies any current chest pain or palpitations. GASTROINTESTINAL: Does complain of some mild nausea secondary to pain, this has improved. No trouble with diarrhea or constipation. GENITOURINARY: Denies any urgency, frequency, or hesitancy. MUSCULOSKELETAL: See HPI. NEUROLOGICAL: Today, he is in a wheelchair. No new numbness or tingling in lower extremities. HEMATOLOGICAL: Easily bruised. No bleeding. Contraindication to anticoagulation due to GI bleed. PSYCHIATRIC: No depression or anxiety. ALLERGIES: TO IODINATED CONTRAST.PATIENT'S NAME: OLGA FOSTER [facility] AGE: 86 Y [address] ROOM: [place] [address] [facility] ADMIT DATE: 03/13/2017 Consultation DISCHARGE DATE: FAMILY PHYSICIAN: Remy Gilman MD ATTENDING PHYSICIAN: Agustin [place] CURRENT HOME MEDICATIONS: Include: 1. Tylenol 325 mg p.o. q.4 hours p.r.n. pain. 2. Albuterol 2.5 mg 1 inhalation q.4 hours p.r.n. shortness of breath. 3. Allopurinol 100 mg p.o. b.i.d. 4. Amiodarone 200 mg daily. 5. Atorvastatin 40 mg p.o. daily. 6. Symbicort 160/4.5 two puffs inhalation twice a day. 7. Sinemet 25/100 one tab twice a day. 8. Lasix 80 mg every morning and 40 mg at noon. 9. Levothyroxine 112 mcg daily. 10. Metolazone 2.5 mg daily. 11. Nystatin 1 application topically twice a day. 12. Protonix 40 mg daily. 13. Potassium 10 mEq daily. PAST MEDICAL HISTORY: As listed above including, 1. Coronary artery disease. 2. Ischemic cardiomyopathy. 3. History of abdominal aortic aneurysm, status post stenting with Dr. Cardoso. 4. CKD stage 3 to 4 with baseline creatinine of 2.0-2.5. 5. Anemia of chronic kidney disease. 6. History of iron deficiency anemia. 7. Parkinson disease. 8. Paroxysmal atrial fibrillation, not on long-term anticoagulation secondary to GI bleed. 9. History of CVA. 10. History of atrial thrombus, on echo. 11. Hypothyroidism. PAST SURGICAL HISTORY: Abdominal aortic aneurysm status post stenting SOCIAL HISTORY: The patient is a past smoker. He did stop approximately 3 years ago. He used to drink alcohol as well. He stopped drinking a few years ago. He does live at home with his who suffers from dementia. They do live independently and currently he is on home health therapy. FAMILY HISTORY: Negative for any history of renal disease or dialysis. PHYSICAL EXAMINATION: VITAL SIGNS: Blood pressure is 130/59, pulse is 60, respirations are 12, saturations are 97% on room air, and current weight is 100 kg. GENERAL: On exam, this is an elderly white male who appears his approximate stated age, is in a mild amount of distress secondary to pain. HEENT: His head is normocephalic and atraumatic. Eyes: EOMs are intact. No discharge. Nose: No epistaxis or rhinorrhea. Mouth: No gingival bleeding. LUNGS: Lung sounds are clear to auscultation anterior and posteriorly. NECK: Without lymphadenopathy or JVD. CARDIOVASCULAR: Irregularly irregular rate and rhythm, paced. There is a grade 2-3 systolic ejection murmur, heard best at the right second intercostal space with radiation to the base of the heart. ABDOMEN: Soft, nontender, and nondistended. Bowel sounds are positive. PATIENT'S NAME: OLGA FOSTER [facility] AGE: 86 Y [address] ROOM: [place] [address] [facility] ADMIT DATE: 03/13/2017 Consultation DISCHARGE DATE: FAMILY PHYSICIAN: Remy Gilman MD ATTENDING PHYSICIAN: Agustin [place] EXTREMITIES: Trace to 1+ lower extremity edema bilaterally, which is improved from prior visits. MUSCULOSKELETAL: Limited range of motion of the right shoulder. The patient is unable to abduct the right upper extremity due to pain. LABORATORY DATA: Potassium 3.3, sodium 135, BUN 79, creatinine 2.57, and CO2 28. X-rays of the right shoulder were obtained in the clinic with no acute deformities noted. See for dictated report. ASSESSMENT AND PLAN: 1. Chronic kidney disease, stage 3 to 4. The patient's creatinine is within baseline. Normal creatinine for this patient is between 2.0 and 2.5. This is dependent upon his fluid volume status and today he does appear to be euvolemic. We will continue to monitor his creatinine while he is hospitalized as well as his fluid volume status. Close monitoring of intake/output and renal function 2. Anemia: Iron deficiency Vs. anemia of CKD-check iron panel and ferritin as patient has history of iron deficiency anemia. Further recommendations will be forthcoming. 3. Secondary hyperparathyroidism-We will check a PTH, vitamin D 4. Right upper extremity pain. Dr. Sesay is involved in the patient's care at this time. Further recommendations per Orthopedics. 5. Severe aortic stenosis. We will defer this to Dr. Becerril at [facility] for further recommendations. The patient is scheduled to follow up with Dr. Becerril in 6 weeks or sooner if he needs to. This patient has been seen and assessed by Dr. Villagomez. His care is being conducted in consultation with Dr. Villagomez as well as me. We will plan further recommendations as they are forthcoming. TONG IBRAHIM DNP, BULB ASSEMBLER FOR SAUD VILLAGOMEZ MD ENS/modl /[id number] d: 03/14/172221 t: 03/24/17 1302, CONSULTATION REPORT
--- NOTE | ~2017-03-13 | HP ---
PATIENT'S NAME: OLGA FOSTER [facility] AGE: 86 Y [address] ROOM: [place] [address] LOCATION: GPCU ADMIT DATE: 03/13/2017 History & Physical DISCHARGE DATE: FAMILY PHYSICIAN: Remy Gilman MD ATTENDING PHYSICIAN: Agustin SLATER DATE OF SERVICE: CHIEF COMPLAINT: Right upper extremity weakness and pain. HISTORY OF PRESENT ILLNESS: The patient is an 86-year-old gentleman with a past medical history of persistent AFib, not on anticoagulation due to GI bleed, left atrium appendage clot, nonischemic cardiomyopathy status post ICD, and CKD stage 4 who presents here from his PCP's office with right upper extremity weakness and pain. The patient was recently admitted to [facility] in [place] for workup of aortic stenosis. During his admission, he had a coronary angiogram done on March 02, 2017. On subsequent day, on March 03, 2017, the patient reports that he experienced right upper extremity weakness when he was trying to stand up with assist. He reports that he felt his shoulder pop. Subsequently, he started experiencing right upper extremity pain around his shoulder. However, the patient also reports of right upper extremity weakness and reports that he has difficulty flexing his forearm up with fixed elbow. He denies any hand weakness. The patient was seen today by his primary care physician. The patient had x-ray done of his shoulder and was sent here because of intractable pain. The patient also lives with his who has dementia and there is worry about starting on pain medication since he has comorbid condition including age, kidney disease, and heart failure. MEDICAL HISTORY: 1. Chronic kidney disease. 2. Persistent AFib. 3. GI bleed. 4. Left appendage clot. 5. Ischemic cardiomyopathy, status post ICD. 6. Systolic heart failure. 7. Hypothyroidism. 8. COPD. 9. Questionable history of ulcerative colitis. 10. Parkinson disease. SURGICAL HISTORY: 1. Recent history of coronary angiogram. 2. ICD placement. PATIENT'S NAME: OLGA FOSTER [facility] AGE: 86 Y [address] ROOM: [place] [address] LOCATION: GPCU ADMIT DATE: 03/13/2017 History & Physical DISCHARGE DATE: FAMILY PHYSICIAN: Remy Gilman MD ATTENDING PHYSICIAN: Agustin SLATER 3. History of colonoscopy. FAMILY HISTORY: No cardiac history. SOCIAL HISTORY: The patient lives with his . has dementia and seems like he is the caregiver. MEDICATIONS: See MAR. REVIEW OF SYSTEMS: All systems reviewed are negative except for what is mentioned in HPI. PHYSICAL EXAMINATION: VITAL SIGNS: Blood pressure 163/65, afebrile, heart rate of 63, respiratory rate of 15, saturating 94% on room air. GENERAL APPEARANCE: The patient is alert and awake, sitting on the chair in no acute distress. EYE: Extraocular muscles intact. No discharge. HEAD: Normocephalic and atraumatic. NOSE: No nasal discharge. EARS: No ear discharge. CHEST: Clear to auscultation bilaterally. HEART: Irregularly irregular with systolic murmur in the second right intercostal. ABDOMEN: Soft, nontender, and nondistended. Bowel sounds are present. EXTREMITIES: Bilateral lower extremity pitting edema. MUSCULOSKELETAL: Limited range of motion of right shoulder. The patient is unable to abduct right upper extremity greater than 60% due to pain. SKIN: Senile purpura. NEURO: The patient has resting tremor. Right upper extremity weakness 2 to 3/5. SENSORY: Intact. Pulses are intact. Alert and oriented x3. Other extremities strength 5/5. Cranial nerves 2-12 grossly intact. LABORATORY DATA: Potassium 3.3. Sodium of 135. BUN of 79, creatinine of 2.57, and CO2 of 28. X-ray ordered of right shoulder drafts. IMAGING: Shows no fracture or dislocation identified in the shoulder. Degenerative changes at the glenohumeral joints and acromioclavicular joints. PATIENT'S NAME: OLGA FOSTER [facility] AGE: 86 Y [address] ROOM: [place] [address] LOCATION: [facility] ADMIT DATE: 03/13/2017 History & Physical DISCHARGE DATE: FAMILY PHYSICIAN: Remy Gilman MD ATTENDING PHYSICIAN: Agustin SLATER ASSESSMENT AND PLAN: 1. Right upper extremity weakness and pain. The patient's symptoms started on March 03, 2017. The patient has had coronary angiogram done on March 02, 2017. On initial evaluation, the patient has both upper extremity weakness and pain without much involvement of his hands. Etiology at this moment unknown; however, due to the patient's significant comorbidity including recent cardiac cath, left appendage clot, atrial fibrillation with elevated CHADS-VASc score and not on anticoagulation would want to rule out stroke as cause of his right upper extremity weakness. We will acquire CT head without contrast. We will also acquire cervical spine CT without contrast to further investigate myelopathy. Consulted Neurology, discussed case with the Neurology. Agrees with plan and we will see the patient via Neuro tele tomorrow. If the above findings are negative, the patient might benefit with CT of the shoulder to further investigate pain and weakness. 2. Nonischemic cardiomyopathy with low EF. The patient's baseline [employer] symptom of 3. The patient is currently at baseline and denies any worsening of symptoms. We will continue home regimen. 3. Cardiorenal syndrome. The patient has chronic kidney disease stage 4. Current creatinine 2.57. We will consult Nephrology tomorrow morning. We will continue his diuretics for now. 4. Hypokalemia 3.3. We will supplement potassium. We will acquire renal function panel daily. 5. Persistent atrial fibrillation, not on anticoagulation due to significant gastrointestinal bleed risk. 6. History of flexed appendage clot, not on anticoagulation secondary to gastrointestinal bleed. 7. Hypothyroidism. Continue Synthroid. 8. Parkinson disease. Continue Sinemet. 9. Physical deconditioning. PT/OT. 10. Gastrointestinal bleed, holding anticoagulation currently on sequential compressive devices. Continue Protonix. Greater than 60 minutes was spent on the patient care. Greater than 50% of the time was spent in direct patient care. Assessment and plan was discussed with the patient and his daughter. Also, discussed case with Neurology who will admit the patient for observation. We will acquire CT cervical and CT head. The patient's code status is full code on admission. MD RONNA OWEN/modl PATIENT'S NAME: OLGA FOSTER [facility] AGE: 86 Y [address] ROOM: [address] [place] [address] LOCATION: [facility] ADMIT DATE: 03/13/2017 History & Physical DISCHARGE DATE: FAMILY PHYSICIAN: Remy Gilman MD ATTENDING PHYSICIAN: Agustin SLATER /[id number] D: [id number] T: [id number] HISTORY & PHYSICAL
--- NOTE | ~2017-03-13 | CON ---
PATIENT'S NAME: OLGA FOSTER [facility] AGE: 86 Y [address] ROOM: [place] [address] LOCATION: GPCU ADMIT DATE: 03/13/2017 Consultation DISCHARGE DATE: FAMILY PHYSICIAN: Remy Gilman MD ATTENDING PHYSICIAN: Agustin SLATER DATE OF CONSULTATION: 03/14/2017 REFERRING PHYSICIAN: SAUD JACOBSEN INPATIENT CONSULTATION NOTE REQUESTING PROVIDER: Lina Chavez DNP, APRN CHIEF COMPLAINT/REASON FOR CONSULTATION: Lina Chavez DNP, APRN has requested that I provide an inpatient consultation on this right-hand dominant male with a chief complaint of right shoulder pain. HISTORY OF PRESENT ILLNESS: The pain commenced acutely on March 02 while he was transferring off a toilet while recovering from a heart catheterization at [facility] in [place]. He states that a hospital aide was lifting him off the toilet by grasping his right arm. He experienced severe right shoulder pain. He states, "it pulled something." He had no sense of subluxation or dislocation. There was no associated fall. He denies associated numbness or paresthesias. Since then, he has been experiencing significant pain at the deltoid and proximal biceps regions. Pain is aggravated by any attempts to move the shoulder. He has no significant pain at rest. There has been no trend of improvement. He states that he has no history of significant pre-existing right shoulder pain. He denies history of prior trauma to the shoulder. He has no history of prior surgery on the shoulder. PAST MEDICAL HISTORY: Otherwise as specified on his chart. ALLERGIES: OTHERWISE SPECIFIED ON HIS CHART. CURRENT MEDICATIONS: List of present medications are otherwise as specified on his chart. PAST SURGICAL HISTORY: Otherwise as specified on his chart. PATIENT'S NAME: OLGA FOSTER [facility] AGE: 86 Y [address] ROOM: [place] [address] LOCATION: GPCU ADMIT DATE: 03/13/2017 Consultation DISCHARGE DATE: FAMILY PHYSICIAN: Remy Gilman MD ATTENDING PHYSICIAN: Agustin SLATER PHYSICAL EXAMINATION: GENERAL APPEARANCE: He is an alert, oriented, well-hydrated, well-nourished, somewhat frail appearing elderly gentleman. He is accompanied by his daughter. MUSCULOSKELETAL: There is mild right deltoid atrophy. There is no deformity at the shoulder. There is considerable atrophy of the supraspinatus and infraspinatus. Active forward elevation of the right shoulder is limited to 30 degrees. Passive forward elevation is limited to 120 degrees. There are no active skin lesions or masses at the shoulder. There is no erythema. There is no abnormal warmth. He is tender at the greater tuberosity and anterior capsule. There is no crepitation with passive range of motion. Median, radial, and ulnar nerve motor and sensory functions are normal at the right hand. 2+ radial pulse. There is significant atrophy at the first dorsal interosseous as well as at the thenar eminence. IMAGING STUDIES: Radiographs: I have reviewed right shoulder radiographs from earlier this week. These demonstrate mild superior migration of the humeral head. There is no fracture. There is no lytic lesion. There is no hardware. There is mild joint space narrowing. IMPRESSION: Traumatic exacerbation of right shoulder degenerative joint disease and rotator cuff tear. Right shoulder rotator cuff arthropathy with traumatic exacerbation thereof. RECOMMENDATIONS: I have discussed the etiology and natural history of this condition. I have informed the patient and his daughter that it is somewhat unusual that he could have nose perceived pre-existing discomfort or dysfunction in this shoulder (given its radiographic appearance). Nonetheless, he appears to be quite stoic, and this is not surprising (given the fact that his daughter, who we treat as a patient) is quite stoic as well. I have discussed the etiology and natural history of this condition. I have encouraged him to consider a cortisone injection. I have recommended a sling for comfort. I have recommended ice. We have discussed surgical salvage options, but I would not wish to consider surgery without an attempted nonoperative management. We are cautiously optimistic that the acute exacerbation of right shoulder pain could conceivably be quelled without having to be more aggressive. The patient and his daughter understand that I will return later today to administer the cortisone injection. I have discussed the potential for iatrogenic infection. PATIENT'S NAME: OLGA FOSTER [facility] AGE: 86 Y [address] ROOM: [place] [address] LOCATION: GPCU ADMIT DATE: 03/13/2017 Consultation DISCHARGE DATE: FAMILY PHYSICIAN: Remy Gilman MD ATTENDING PHYSICIAN: Agustin SLATER MD REGINE KLEIN/modl /[id number] CC: Lina Chavez DNP, [employer] d: 03/14/172201 t: 03/22/172035, CONSULTATION REPORT
--- NOTE | ~2017-03-13 | OR ---
PATIENT'S NAME: OLGA FOSTER [facility] AGE: 86 Y [address] ROOM: [place] [address] LOCATION: GPCU ADMIT DATE: 03/13/2017 OR/Procedure Report DISCHARGE DATE: 03/15/2017 FAMILY PHYSICIAN: Remy Gilman MD ATTENDING PHYSICIAN: Agustin SLATER SURGEON: PATRICK Manjarrez BENEFITS ANALYST: DATE OF PROCEDURE: 03/14/2017 Corrected work type from DS to Op note 04/02/17 AO IDENTIFICATION: This is an 86-year-old male. PRIMARY DIAGNOSES: 1. Right shoulder rotator cuff tear. 2. Right shoulder degenerative joint disease. SECONDARY DIAGNOSIS: Please refer to consultation note. PROCEDURE PERFORMED: Right shoulder intra-articular cortisone injection. The patient was informed of the risks of iatrogenic infection. Informed consent was granted. The patient verbally confirmed that the right shoulder was the intended site of injection. The posterior aspect of the right shoulder was prepped vigilantly with Betadine. Subcutaneous tissue at the site of intended injection were infiltrated with 5 mL of 1% lidocaine using a 25-gauge needle. The mixture of 5 mL of 0.25% Marcaine (without epinephrine) and 80 mg of Depo- Medrol was injected into the posterior aspect of the right glenohumeral joint with a 22-gauge needle. The patient tolerated this well, and there were no breaches in sterile technique. FOLLOWUP: The patient is to follow up with us in 2 weeks subsequent to dismissal from the hospital for followup of his right shoulder intra-articular cortisone injection. PATRICK LUZ FOR CAITLIN SIMS MD TLB/modl /[id number] Corrected work type from DS to Op note 04/02/17 AO d: 03/14/17 2243 t: 04/03/17 0953, OPERATIVE SUMMARY
--- NOTE | ~2017-03-13 | CON ---
PATIENT'S NAME: OLGA FOSTER [facility] AGE: 86 Y [address] ROOM: [place] [address] LOCATION: GPCU ADMIT DATE: 03/13/2017 Consultation DISCHARGE DATE: FAMILY PHYSICIAN: Remy Gilman MD ATTENDING PHYSICIAN: Agustin SLATER DATE OF CONSULTATION: 03/14/2017 REFERRING PHYSICIAN: SAUD JACOBSEN TIME: 2:10 p.m. REASON FOR CONSULT: Right upper extremity weakness. HISTORY OF PRESENT ILLNESS: This is an 86-year-old, gentleman with a past medical history of persistent atrial fibrillation. He is not on any anticoagulation now due to a GI bleed, and he does have a left atrial appendage clot. He also has been diagnosed with nonischemic cardiomyopathy with an ICD and chronic kidney disease, stage 4. He came to us from his primary care physician's office with right upper extremity weakness and pain. He was recently admitted to [facility] in [place] for workup of aortic stenosis. During his admission, he had a coronary angiogram done on March 02, 2017. On March 03, the patient said he experienced right upper extremity weakness when he was trying to stand up with assistance. He reports that he felt his shoulder pop. Subsequently, he started experiencing right upper extremity pain around the shoulder. However, the patient also reports right upper extremity weakness and reports that he had difficulty flexing his forearms. He denies any hand weakness. Neurology was consulted to definitely rule out stroke. We will also comment on the right upper extremity weakness. MEDICAL HISTORY: 1. Chronic kidney disease. 2. Persistent atrial fibrillation. 3. GI bleed. 4. Left appendage clot. 5. Ischemic cardiomyopathy, status post ICD. 6. Systolic heart failure. 7. Hypothyroidism. 8. COPD. 9. Questionable history of ulcerative colitis. 10. Parkinson disease. PAST SURGICAL HISTORY: PATIENT'S NAME: OLGA FOSTER [facility] AGE: 86 Y [address] ROOM: [place] [address] LOCATION: GPCU ADMIT DATE: 03/13/2017 Consultation DISCHARGE DATE: FAMILY PHYSICIAN: Remy Gilman MD ATTENDING PHYSICIAN: Agustin SLATER 1. Coronary angiogram. 2. ICD placement. 3. Colonoscopy. FAMILY HISTORY: He has no cardiac history in his family. Other history is unable to be obtained at this time, because the patient does not remember. SOCIAL HISTORY: The patient lives with his . His has dementia and he is the caregiver. MEDICATIONS: On the MAR and reviewed by me. REVIEW OF SYSTEMS: All systems were reviewed and are negative except for what is mentioned in the HPI. PHYSICAL EXAMINATION: VITAL SIGNS: His blood pressure is 145/62, he is afebrile, his heart rate is 64, respiratory rate of 16, and he is saturating 94% on room air. GENERAL APPEARANCE: The patient is awake and alert, sitting in the chair, no acute distress. HEENT: Eyes: Extraocular muscles are intact. Head: Normocephalic and atraumatic. HEART: Irregular with a systolic murmur. CHEST: Clear to auscultation bilaterally. NEURO: A resting tremor is noted with his upper extremities. His hand grasps are strong and equal bilaterally. His right upper extremity: Triceps is 2 to 3/5, biceps is a 2/5; left is 5/5. Deep tendon reflexes in the bilateral arms are somewhat diminished at +2. He is supposed to keep his elbow at his side, so some of the exam is limited. Sensory is intact. He does have a strong radial pulse on the right side. He is alert and oriented x3. His cranial nerves 2 through 12 are grossly intact. I did not ambulate the patient; however, I did examine his lower extremities strength and it is 5/5 bilaterally. IMAGING: His shoulder was imaged, which shows no fracture dislocation. Dr. Sesay is seeing the patient and he is planning on a steroid injection. A CT of the brain was completed and shows no acute processes. On the cervical CT, there are extensive degenerative changes. PLAN AND ASSESSMENT: PATIENT'S NAME: OLGA FOSTER [facility] AGE: 86 Y [address] ROOM: [id number] [place] [address] LOCATION: [facility] ADMIT DATE: 03/13/2017 Consultation DISCHARGE DATE: FAMILY PHYSICIAN: Remy Gilman MD ATTENDING PHYSICIAN: Agustin SLATER 1. Right upper extremity weakness and pain. It is difficult to differentiate the weakness from a pain-induced inability to utilize his biceps and triceps. In any effect, the CT was negative for any acute stroke thankfully. No other focal symptoms are noted. There is definitely no slurred speech and language is fluent. 2. Persistent atrial fibrillation, not on anticoagulation due to gastrointestinal bleed. Certainly, this puts the patient at risk of stroke. 3. Parkinson disease. The patient states he is at baseline functioning. Continue the Sinemet as ordered. We would like to thank you for the opportunity to participate in this patient's care. The plan of care was discussed with Dr. Gotti who assessed the patient with me. Findings and recommendations were reviewed with Dr. Mcdonald of the Hospitalist Group. PAUL WILHELM APRN FOR BENITA GOTTI MD PP/modl /[id number] d: 03/14/172119 t: 03/16/17 1743, CONSULTATION REPORT
[~2017-03-13 16:20] MED LIST changes: -AUGMENTIN 875-1 EACH PO; -BUMETANIDE2 MG PO; -CIPRO500 MG PO; -GUAIFENESIN-DM10 ML PO; -K-TAB 10MEQ10 MEQ PO; -K-TAB ER20 MEQ PO; -LANOXIN (DIGI125 MCG PO; -LEVAQUIN 250 M250 MG PO; -SENNA8.6 MG PO; -SPIRONOLACTONE25 MG PO; -VOLTAREN 1% GE100 GM TOP; -ZAROXOLYN2.5 MG PO
[2017-03-13] MEDS ORDERED: K-TAB 10MEQ10 MEQ PO (17:23)
[2017-03-14 05:38] LABS: BASOPHIL % 0.6 %; EOSINOPHIL # 0.2 K/uL (0.0-0.5); HEMATOCRIT 32.2 % (33.0-50.0); HEMOGLOBIN 10.6 g/dL (11.0-16.0); IMMATURE GRANULOCYTE % 0.4 %; LYMPHOCYTE # 0.7 K/uL (0.8-4.0); LYMPHOCYTE % 10.7 %; MCH 34.1 pg (27.0-34.0); MCHC 32.9 gm/dL (32.0-36.5); MCV 103.5 fl (83.0-98.0); MONOCYTE # 0.5 K/uL (0.0-1.0); MPV 10.1 fl (9.4-12.4); NEUTROPHIL # (ANC) 5.2 K/uL (1.4-9.0); NEUTROPHIL % 77.3 %; NRBC % 0 /100WBC (0-0.00); PLATELET COUNT 202 K/uL (150-450); RBC 3.11 M/uL (3.50-5.50); RDW-CV 14.9 % (11.9-14.6); WBC 6.7 K/uL (4.0-11.0)
[2017-03-14 06:07] LABS: ALBUMIN 3.1 gm/dL (3.5-5.0); ANION GAP 14.2 (10.0-19.0); CALCIUM 8.7 mg/dL (8.5-10.5); CREATININE 2.2 mg/dL (0.6-1.3); POTASSIUM 3.2 mMol/L (3.7-5.1); TOTAL BILIRUBIN 0.5 mg/dL (0.0-1.5); TOTAL PROTEIN 6.3 g/dL (6.0-8.4)
[2017-03-15 07:26] LABS: HEMATOCRIT 31.9 % (33.0-50.0); HEMOGLOBIN 10.5 g/dL (11.0-16.0); MCH 33.9 pg (27.0-34.0); MCHC 32.9 gm/dL (32.0-36.5); MCV 102.9 fl (83.0-98.0); MPV 10.2 fl (9.4-12.4); PLATELET COUNT 204 K/uL (150-450); RDW-CV 14.8 % (11.9-14.6); WBC 7.9 K/uL (4.0-11.0)
[2017-03-15 07:45] LABS: ALBUMIN 3.2 gm/dL (3.5-5.0); ANION GAP 15.5 (10.0-19.0); CREATININE 1.9 mg/dL (0.6-1.3); POTASSIUM 3.5 mMol/L (3.7-5.1); TOTAL BILIRUBIN 0.5 mg/dL (0.0-1.5); TOTAL PROTEIN 6.5 g/dL (6.0-8.4)
[2017-03-15 08:10] LABS: LYMPHOCYTE # 0.5 K/uL (0.8-4.0); LYMPHOCYTE % 6 %; MONOCYTE # 0.5 K/uL (0.0-1.0); SEGMENTED NEUTROPHIL % 88 %
[2017-04-10] MEDS ORDERED: ULTRAM50 MG PO (16:16)
[2017-05-21] MEDS ORDERED: MILK OF MA400 MG/5 M PO (14:01)
[2017-05-21] MEDS ORDERED: SENNA8.6 MG PO (14:01)
[2017-05-21] MEDS ORDERED: GUAIFENESIN-DM10 ML PO (14:13)
[2017-07-05] MEDS ORDERED: LEVAQUIN 250 M250 MG PO (16:04)
== END 2017-03-15 14:45 | disposition home health service (06) ==
LOC: GMSU 16:20 → GPCU 16:20
PROVIDERS: ADMIT Internal Medicine
PROC: 3E0U33Z Introduction of Anti-inflammatory into Joints, Percutaneous Approach (ICD-10-PCS; principal; 2017-03-13)
PROC: 3E0U3BZ Introduction of Anesthetic Agent into Joints, Percutaneous Approach (ICD-10-PCS; 2017-03-13)
DX: M25.511 Pain in right shoulder (principal); M75.101 Unspecified rotator cuff tear or rupture of right shoulder, not specified as traumatic; M19.011 Primary osteoarthritis, right shoulder; I13.0 Hypertensive heart and chronic kidney disease with heart failure and stage 1 through stage 4 chronic kidney disease, or unspecified chronic kidney disease; N18.4 Chronic kidney disease, stage 4 (severe); D63.1 Anemia in chronic kidney disease; I50.22 Chronic systolic (congestive) heart failure; I25.10 Atherosclerotic heart disease of native coronary artery without angina pectoris; G20 Parkinson's disease; I48.1 Persistent atrial fibrillation; I25.5 Ischemic cardiomyopathy; J44.9 Chronic obstructive pulmonary disease, unspecified; E03.9 Hypothyroidism, unspecified; E87.6 Hypokalemia; Z87.891 Personal history of nicotine dependence; Z98.890 Other specified postprocedural states; Z79.899 Other long term (current) drug therapy
CPT/HCPCS: G0378; G0379; G8978; G8979; G8980; G8987; G8988; G8989; J0171; J1040; J1200; J1720; J2916; J3010; J7040

== ENCOUNTER 2017-03-27 15:00 | Observation (INO) | payer MEDICARE, OTHER ==
[~2017-03-27] VITALS: Ht 172.7 cm; Wt 99.2 kg
--- NOTE | ~2017-03-27 | CON ---
PATIENT'S NAME: OLGA FOSTER [facility] AGE: 86 Y [address] ROOM: [place] [address] LOCATION: [facility] ADMIT DATE: 03/27/2017 Consultation DISCHARGE DATE: FAMILY PHYSICIAN: Remy Gilman MD ATTENDING PHYSICIAN: MIK MARTINES DATE OF CONSULTATION: 03/28/2017 REFERRING PHYSICIAN: Arvin Hobbs APRN REASON FOR VISIT: Left forearm skin tear. HISTORY OF PRESENT ILLNESS: This is a pleasant 86-year-old male patient who was admitted to [facility] after he sustained a mechanical fall last weekend. He denies loss of consciousness. He has been treating his right forearm skin tear with Xeroform gauze. The patient does have a history of diastolic and systolic congestive heart failure, chronic kidney disease, atrial fibrillation, hypothyroidism, COPD, Parkinson disease, and CVA. I did see him last [facility] August and he was noted to have a right buttock ulcer. The patient still notes he has the ulcer. He is complaining of 5/10 pain to the site. He is nondiabetic. He denies fevers, chills, or sweats. He does admit to weakness. He is slightly hard of hearing. He admits to fair oral intake. He currently resides at home in [place] with his . PAST MEDICAL HISTORY: Diastolic and systolic congestive heart failure, ischemic cardiomyopathy, history of a GI bleed, chronic atrial fibrillation, chronic kidney disease, hypothyroidism, COPD, Parkinson disease, aortic stenosis, anemia of chronic disease, CVA, and history of an AAA. PAST SURGICAL HISTORY: ICD placement and AAA post stenting. FAMILY HISTORY: Reviewed and found to be noncontributory to present illness. SOCIAL HISTORY: The patient lives with his in [place]. He takes care of his who suffers from dementia. He denies tobacco or alcohol use. ALLERGIES: IODINE CONTRAST DYE, CHLORHEXIDINE, ELIQUIS, HEPARIN, AND COUMADIN. PATIENT'S NAME: OLGA FOSTER [facility] AGE: 86 Y [address] ROOM: [place] [address] LOCATION: [facility] ADMIT DATE: 03/27/2017 Consultation DISCHARGE DATE: FAMILY PHYSICIAN: Remy Gilman MD ATTENDING PHYSICIAN: MIK MARTINES CURRENT MEDICATIONS: Please refer to the medication administration record. REVIEW OF SYSTEMS: Pertinent positives addressed in the HPI and all the rest are negative. PHYSICAL EXAMINATION: VITAL SIGNS: Temperature 98.0, pulse 61, respirations 16, blood pressure 119/59, and pulse oximetry 94% on room air. Height 5 feet 8 inches and weight 99.2 kg. GENERAL: The patient is alert and oriented. In no acute distress. HEENT: Head: Normocephalic, atraumatic. Anicteric sclerae. Dentures noted. Slightly hard of hearing. RESPIRATIONS: Even and unlabored. EXTREMITIES: +2 pedal pulses. Capillary refill intact. SKIN: The patient's right forearm to elbow skin tear measures 2.5 cm width x 4.5 cm length x 0.1 cm depth. Wound bed is red. Partial ecchymotic flap intact. Small serosanguineous exudate. Abrasion noted to right knee. Area is dry. Right buttock ulcer measures 0.7 cm width x 0.5 cm length x 0.2 cm depth. Wound bed is a mixture of moist pink tissue with yellow slough to the center. Skin rolling at the proximal aspect. A small amount of serous exudate. No induration or fluctuance. LABORATORY DATA: Sodium 134, potassium 3.2, chloride 92, bicarb 29, BUN 85, creatinine 2.0, and glucose 127. ASSESSMENT AND PLAN: Again, this is an 86-year-old male patient who was admitted to [facility] after a mechanical fall. 1. Right forearm skin tear secondary to fall. No signs of infection. Partial flap intact. We will initiate the Vaseline gauze protocol. 2. Right buttock full-thickness stage III pressure ulcer present on admission. Site has been present since at least August. Appears down to subcutaneous tissue. We will initiate pressure redistribution measures. Nursing is to turn him in bed q.2 hours side to side. They are to apply Aloe Apex q.i.d. and p.r.n. stooling to the buttocks. I ordered a dietary consult and discussed the importance of protein intake. The patient notes he likes strawberry Ensure and I wrote an order so he can get that with meals. I educated him if he needs further services on discharge I would be happy to help and see him as an outpatient. I would like to thank Lacho Hobbs APRN, for this consult. PATIENT'S NAME: OLGA FOSTER [facility] AGE: 86 Y [address] ROOM: [id number] [place] [id number] LOCATION: [facility] ADMIT DATE: 03/27/2017 Consultation DISCHARGE DATE: FAMILY PHYSICIAN: Remy Gilman MD ATTENDING PHYSICIAN: MIK MARTINES PHOEBE SIMPSON APRN FOR MD DURGA GAN/ignacio /[id number] d: 03/29/17 0907 t: 04/06/17 1013, CONSULTATION REPORT
--- NOTE | ~2017-03-27 | DS ---
PATIENT'S NAME: OLGA FOSTER [facility] AGE: 86 Y [address] ROOM: [place] [address] LOC[address]: [facility] [place] ADMIT DATE: 03/27/2017 Discharge Summary DISCHARGE DATE: 03/30/2017 FAMILY PHYSICIAN: Remy Gilman MD ATTENDING PHYSICIAN: Que Atwood FINAL DIAGNOSES: 1. Gait instability with fall. 2. Intractable chest wall contusion and pain. 3. Severe aortic stenosis. 4. Chronic kidney disease, stage 3-4. 5. Essential hypertension. 6. Mixed congestive heart failure. 7. Chronic atrial fibrillation. 8. Parkinson's. CONSULTANTS ON THE CASE: Include Wound Care. PROCEDURES: None. HOSPITAL COURSE: Please see details of admission and H and P by Dr. Atwood. Briefly, the patient was admitted after a fall. He had a severe chest wall contusion and intractable pain. The patient was admitted with a cardiac diet and PT and OT consults. We used Dilaudid IV for pain control. The patient did have a lidocaine patch, which also provided him with relief. Wound Care consulted on 03/28, addressed skin tear needs and right buttock ulceration. The patient continued to have chest wall pain, especially with mobilizing or changing position. It was controlled with Percocet and Tylenol. Continued to work with therapies and maintain and increased his strength and stability with gait. On the , it was felt that the patient could safely be discharged to [facility]. He is to continue his care with Dr. Gilman in followup and see him in 1 week. Continue occupational and physical therapy there on an outpatient basis. DIAGNOSTICS: On the , sodium was 134, potassium 3.2, chloride 92, glucose 127, BUN 85, creatinine 2.0. On the , sodium was up to 137, potassium 3.6, chloride 94, CO2 of 31, glucose 129, BUN was 85, creatinine was 1.8. DISCHARGE INSTRUCTIONS: The patient is discharged to [facility]. PATIENT'S NAME: OLGA FOSTER [facility] AGE: 86 Y [address] ROOM: [place] [address] LOCATION: [facility] ADMIT DATE: 03/27/2017 Discharge Summary DISCHARGE DATE: 03/30/2017 FAMILY PHYSICIAN: Remy Gilman MD ATTENDING PHYSICIAN: Que Atwood Diet: Cardiac. Activity: Fall precautions. Weightbearing as tolerated. Followup: Follow up with Dr. Gilman in 1 week. PT and OT to evaluate and treat three times weekly for gait training and balance. [facility] nurse to give dressing recommendations. DISCHARGE MEDICATIONS: 1. Allopurinol 100 mg twice daily. 2. Amiodarone 200 mg daily. 3. Lipitor 20 mg daily. 4. Voltaren 1% gel apply topically to right shoulder. 5. Lasix 40 mg daily. 6. Lasix 80 mg every morning. 7. Levothyroxine 112 mcg daily. 8. Zaroxolyn 5 mg p.o. 3 times a week. 9. Protonix 40 mg daily. 10. Potassium chloride 10 mEq three times daily. 11. Sinemet 25/100, one tab twice daily. 12. Symbicort 160/4.5, two inhalations twice daily. 13. Tylenol 325 mg every 4 hours as needed. 14. Nystatin cream applied topically to skin tears as needed. 15. Albuterol sulfate one vial per nebulizer every 4 hours as needed. 16. Percocet 5/325, one tab every 4 hours as needed for pain. 17. Senna 8.6 mg every day as needed for constipation. We do appreciate participating in this patient's care. Thank you very much for the ability to serve him while hospitalized at [facility]. PATRICK BURT FOR RODRI LOOMIS MD CORINA/modl /[id number] d: 03/31/17222 t: 04/02/171812, DISCHARGE SUMMARY
--- NOTE | ~2017-03-27 | HP ---
PATIENT'S NAME: OLGA FOSTER [facility] AGE: 86 Y [address] ROOM: [id number] [place], [place] [address] LOCATION: [facility] [place] ADMIT DATE: 03/27/2017 History & Physical DISCHARGE DATE: FAMILY PHYSICIAN: Remy Gilman MD ATTENDING PHYSICIAN: MIK ATWOOD DATE OF SERVICE: 03/27/2017 CHIEF COMPLAINT: Intractable pain. HISTORY OF PRESENT ILLNESS: This is an 86-year-old male with a history of multiple chronic medical conditions. Unfortunately, he suffered a mechanical fall on Sunday afternoon while trying to water his 's ruby in the garden. He was extending the hose about past the driveway when he tripped and fell over his walker onto the ground on his right chest and right elbow. He states that he did not hit his head. He states that he did not get lightheaded or dizzy. He suffered a skin tear, which he tried to wash at home by himself. Today, he had a followup with his primary care provider, and while being seen in the office, complained of significant discomfort without any relief from pain medicines. While in the office, the PCP irrigated and cleaned his wound properly. She took an x- ray of his elbow and chest, which did not show any fractures. Because of his significant chronic conditions, falls, intractable pain, and debility, it was felt that he would need to be admission for further management. The patient does not complain of any lightheadedness, dizziness, or headaches. He has been in his normal state of health. He does not complain of any chest pain or palpitations or flutter. He does have significant history for aortic stenosis, and is currently being evaluated for his valve at [facility] with Dr. Becerril. He denies any PND, but cannot lie flat because he has history of chronic spinal fractures. He does not have any shortness of breath. He does get some dyspnea on exertion, but this is unchanged and is normal for his baseline according to him. He does not have any cough. He does not have any nausea or vomiting or diarrhea. He does complain of constipation with pain medicines. He denies any blood in his bowel movements. He does complain of urinary frequency, but no urgency or painfulness or burning on urination. He does have some swelling in his lower extremities, but is relatively well-maintained with his diuretic therapy as well as his compression YE hose. He does complain of pain over his midsternal to right pectoral chest wall that is constant and rated at 8/10. It does not radiate anywhere. It does not get any better with the Tylenol at home. He also complains of a right skin tear, which has recently been cleaned in the PCP's office, and he is dressed accordingly. He denies any drainage or malodorous drainage. He also states he has a small sore on his bottom. He has had this PATIENT'S NAME: OLGA FOSTER [facility] AGE: 86 Y [address] ROOM: [place] [address] LOCATION: [facility] [place] ADMIT DATE: 03/27/2017 History & Physical DISCHARGE DATE: FAMILY PHYSICIAN: Remy Gilman MD ATTENDING PHYSICIAN: MIK ATWOOD for sometime without any complications. He also complains of right shoulder pain, in which he was admitted to the hospital on March 13, and was found to have a right shoulder rotator cuff tear with significant right shoulder degenerative joint disease. Upon this, he had an intra-articular cortisone injection with Dr. Sesay, which proved to be minimal relief. However, the patient was instructed to use a right arm sling, but has been non-compliant with this at home. REVIEW OF SYSTEMS: All review of systems was completed, and were negative except for those mentioned above in the HPI. PAST MEDICAL HISTORY: Includes 1. Chronic kidney disease, stage 3/4. 2. Persistent atrial fibrillation. 3. History of GI bleed. 4. Left atrial appendage clot by echocardiogram. 5. Ischemic cardiomyopathy, status post ICD. 6. Combined diastolic and systolic heart failure. 7. Hypothyroidism. 8. COPD. 9. Parkinson disease. 10. Aortic stenosis. 11. Anemia of chronic disease. 12. Right shoulder rotator cuff tear. 13. History of CVA. 14. History of abdominal aortic aneurysm, status post stenting. PAST SURGICAL HISTORY: 1. AAA, status post stenting. 2. Right intra-articular joint injection. 3. History of ICD placement. 4. History of coronary angiogram. 5. History of colonoscopy. SOCIAL HISTORY: The patient has a history of smoking, not currently active. A former alcohol drinker, but not currently active. He does live at home with his who suffers from dementia, and is her primary caregiver. He has been undergoing Home Health therapy. FAMILY HISTORY: Reviewed with the patient. No premature cardiac disease. PATIENT'S NAME: OLGA FOSTER [facility] AGE: 86 Y [address] ROOM: [place] [address] LOCATION: [facility] [place] ADMIT DATE: 03/27/2017 History & Physical DISCHARGE DATE: FAMILY PHYSICIAN: Remy Gilman MD ATTENDING PHYSICIAN: MIK ATWOOD ALLERGIES: THE PATIENT REPORTS ALLERGIES TO IODINATED CONTRAST MEDIA, CAUSES SEVERE RED RASH AND HIVES. CHLORHEXIDINE CAUSES HIVES AROUND THE PREPPED AREA. WARFARIN, APIXABAN, AND HEPARIN CAUSE HIM TO HAVE BLEEDING EPISODES. HOME MEDICATIONS: 1. Allopurinol 100 mg p.o. twice daily. 2. Amiodarone 200 mg p.o. everyday. 3. Carbidopa/levodopa 25/100 mg one tablet p.o. twice daily. 4. Lasix 80 mg p.o. everyday and Lasix 40 mg p.o. every afternoon. 5. Levothyroxine 112 mcg p.o. everyday. 6. Pantoprazole 40 mg p.o. everyday. 7. Atorvastatin 20 mg p.o. everyday. 8. Symbicort 160 mcg two puffs inhalation twice daily as needed for shortness of breath. 9. Metolazone 5 mg p.o. three times weekly. 10. Acetaminophen 325 mg p.o. every four hours as needed for pain or fever. 11. Nystatin 30 g one application topically twice daily as needed to skin tears. 12. Albuterol sulfate one vial inhalation every 4 hours as needed for shortness of breath. 13. Potassium chloride 10 mEq p.o. three times daily. 14. Percocet 5/325 mg one tablet p.o. every 4 hours as needed. 15. Diclofenac gel one application topically to the affected area everyday. 16. Senna 8.6 mg p.o. everyday as needed for constipation. PHYSICAL EXAMINATION: GENERAL: This is an 86-year-old male, who looks and appears his stated age. While resting in bed, he does not appear to be in any acute distress. HEENT: His head is normocephalic and atraumatic. His eyes, his extraocular movements are intact. His pupils are equal, round, and reactive to light and accommodation. His conjunctivae are clear. He is wearing glasses. Oropharynx appears moist. His teeth with dentures on upper and lower with good dentition. NECK: Supple. No JVD was noted. RESPIRATORY: His lungs appear symmetric in expansion. He does have a left lower lobe crackle. There is no wheeze or any further adventitious sounds. He does cough with deep breaths, which causes him to splint in grimace and discomfort. Palpation of the chest wall reveals significant tenderness over his sternum and right pectoral region. CARDIAC: His heart is irregularly irregular with a systolic murmur in the third intercostal space. He does have 1+ peripheral pulses. He does have 2+ pedal edema bilaterally in his lower extremities. ABDOMEN: Soft, nontender, and nondistended. Bowel sounds are heard PATIENT'S NAME: OLGA FOSTER [facility] AGE: 86 Y [address] ROOM: [place] [address] LOCATION: [facility] [place] ADMIT DATE: 03/27/2017 History & Physical DISCHARGE DATE: FAMILY PHYSICIAN: Remy Gilman MD ATTENDING PHYSICIAN: MIK ATWOOD throughout all four quadrants. He denies any tenderness. GENITOURINARY: Deferred. EXTREMITIES: Revealed limited range of motion in the right shoulder due to discomfort. He has point tenderness in the right AC joint. Pelvis was without any tenderness and full mobility of bilateral lower extremities with own strength. SKIN: He has a superficial skin tear to the right elbow area that has been cleansed with good granulating tissue. It is an area that is circumferentially approximately 4 x 5 cm approximately. There is no malodorous drainage. There was some mild erythema surrounding the site. NEUROLOGIC: The patient has a resting tremor, worse in the right upper extremity. LABORATORY DATA: Taken from his primary care provider's office: Renal function panel shows a BUN of 93.0, calcium of 9.2, chloride of 94.0, creatinine of 2.51, CO2 of 29.7, glucose of 157, potassium of 3.6, sodium of 134, albumin of 3.4, phosphorus of 3.5, and GFR of 26.2. CBC shows a white blood cell count of 11.1, hemoglobin of 11.7, hematocrit of 34.3, and platelet count of 170.0. RADIOLOGIC FILMS: The left rib showed no rib fractures or pneumothorax. The shoulder girdle appeared intact. Forearm, right two-view showed no bone or joint abnormalities identified by radiologist. Chest, two-view chest x-ray showed left hemidiaphragm elevation. Heart and lungs are stable without any acute findings. No CHF or pneumonia. Right rib detail showed no pneumothorax and was negative. IMPRESSION AND PLAN: This is an 86-year-old male with multiple chronic medical conditions, suffered a mechanical fall at home with right forearm skin tear and chest contusion with intractable pain. He will be admitted for further management. 1. Intractable pain. We will continue to supportively treat his pain with Percocet and breakthrough Dilaudid. We will have to be cautious in the light of his advanced age as well as his chronic kidney disease state. 2. Mechanical fall. We will have an aggressive restorative plan including physical and occupational therapy. The patient may require a placement stay for further rehabilitation. 3. Chest wall contusion. Chest x-ray has ruled out any pneumothorax or PATIENT'S NAME: OLGA FOSTER [facility] AGE: 86 Y [address] ROOM: [address] [address] LOCATION: [facility] [place] ADMIT DATE: 03/27/2017 History & Physical DISCHARGE DATE: FAMILY PHYSICIAN: Remy Gilman MD ATTENDING PHYSICIAN: MIK ATWOOD acute rib fractures. We will continue to do aggressive pulmonary hygiene and splinting techniques to reduce pain. Pain management is as above. 4. Right elbow skin tear. He will continue to utilize good wound care practice to keep the wound clean and healing. Wound Care consult for assistance in management and observation. 5. Chronic systolic and diastolic congestive heart failure appears to be currently compensated. We will restrict his fluids and put him on a cardiac diet, as well as monitor his intake and output. We will continue on his home diuretic therapy and observe his response. 6. Chronic kidney disease, stage 3/4. His recurrent kidney labs showed his creatinine is 2.51, and after speaking with his primary care provider as well as his daughter, he states this is typically where he runs. We will continue to observe his labs to ensure that there was no change. 7. Persistent atrial fibrillation. We will continue to monitor his rate control. No long-term anticoagulation because of contraindication because of his history of gastrointestinal bleeding. 8. Left atrial appendage clot. 9. Chronic obstructive pulmonary disease. To continue his home inhalers and good pulmonary hygiene, given his contusion. 10. Severe aortic stenosis. To continue to follow up with [facility] Cardiology as an outpatient. 11. Parkinson disease. To continue his home carbidopa/levodopa and restorative plan with physical and occupational therapy. 12. Essential hypertension. Continue with routine nursing vital signs and maintaining a goal blood pressure of 120/80. 13. Anemia of chronic disease with iron deficiency and chronic kidney disease. His current hemoglobin is 11.7. We will continue to observe and monitor for any blood loss. 14. History of abdominal aortic aneurysm, status post stenting. 15. History of cerebrovascular accident. 16. Right shoulder rotator cuff tear, status post recent intra-articular injection. We will continue to monitor accordingly and placed a sling as directed by Dr. Sesay and his Orthopedic team. 17. History of hypothyroidism. To continue replacement. 18. Deep venous thrombosis prophylaxis. Because of his significant history of adverse bleeding effects secondary to anticoagulants, we will continue to use pneumatic compression devices and YE hose. 19. The patient is to be full code. 20. Advanced age and fragility. 21. We will also involve the Care Management team in regard to discharge planning and possible placement of this patient. The above line of management was discussed with Olga and his daughter at the bedside, as well as in review with Dr. Atwood. All questions were answered with statements of understanding. PATIENT'S NAME: OLGA FOSTER [facility] AGE: 86 Y [address] ROOM: [place] [address] LOCATION: [facility] [place] ADMIT DATE: 03/27/2017 History & Physical DISCHARGE DATE: FAMILY PHYSICIAN: Remy Gilman MD ATTENDING PHYSICIAN: MIK ATWOOD NIA BARAJAS APRN, APRN FOR MIK ATWOOD MD JIR/ana cristinal /[id number] D: T: [id number] HISTORY & PHYSICAL
[~2017-03-27 15:00] MED LIST changes: +K-TAB 10MEQ10 MEQ PO
[2017-03-27] MEDS ORDERED: VOLTAREN 1% GE100 GM TOP (16:38)
[2017-03-27] MEDS ORDERED: SENNA8.6 MG PO (16:39)
--- NOTE | 2017-03-27 17:41 | NUR ---
Admisssion note: 86 year old male admitted for chest wall pain post fall. Daughter and patient report he was out in his yard on 03/26 and fell. He has abrasions to bilateral knees. Open area to upper, inner right gluteal fold. Is alert and oriented. needs 2 assist to stand, gait belt and uses own wheeled walker. Gait is steady with ambulation. Daughter reports he saw Dr. Sesay and he said patient has "torn ligaments in both shoulders". Patient reports he has pain and had tylenol at 1430 at doctor office today. Patient up to BR and voids 400ml of clear yellow urine.
--- NOTE | 2017-03-28 05:14 | NUR ---
CHARANJIT IS A&O X3. AMBULATES WITH 2 ASSIST GB TO GET TO FEET THEN ONE PERSON WALKS WITH WALKER. DOES NOT WANT ANYONE TO LIFT HIM BY HIS ARM PITS. USES BATHROOM TO VOID. IV TO R FA SL. OPEN SORE ON UPPER R INNER BUTT CHEEK. FREQUENT FALLS BRUSING TO ARMS AND KNEES FROM LATEST FALL. UPPER CHEST WALL IS SORE FROM FALL ALSO. VSS WNL ON RA. LIKES TO SIT IN CHAIR WITH FEET UP. PLEASANT WITH CARES.
[2017-03-28 05:53] LABS: ALBUMIN 3.2 gm/dL (3.5-5.0); ANION GAP 16.2 (10.0-19.0); CALCIUM 8.8 mg/dL (8.5-10.5); POTASSIUM 3.2 mMol/L (3.7-5.1); TOTAL PROTEIN 6.7 g/dL (6.0-8.4)
--- NOTE | 2017-03-28 16:01 | NUR ---
Talked with Lina NGUYEN this morning, then talked with pt and his daughter Josselyn at bedside. Pt not able to go home and care for himself or . They would like him to have a skilled stay if possible at SNF if Medicare or VA will pay for it, otherwise would look at [facility]'s for both pt and his with dementia as she will have to go somewhere as well for care, would prefer it be with him. Pt has only had observation stays here in last 30 days, daughter reports that was at [facility] in [place] 2nd week in February and said was there for 5 days but doesn't think they had him as an inpatient. Said he goes [place] the [place] so is hopeful he will be eligible through VA. Told her I would check those things out. If not eligible for skilled stay they would like pt and to go to [facility] for a short time, thinking a month or so. She has called a friend at [facility] who checked and said they could have a room for patient open tomorrow, told her I would check that out as well as other [facility]'s if doesn't qualify for Medicare or VA to cover skilled SNF stay. Called [facility] in [place], from 03/01 to 03/03 was inpatient, 2 days. Does not qualify him for skilled stay anywhere. Called [facility] in [place] and spent 30 minutes on the phone being transferred to different departments and left voicemail in their eligibility dept and also for a social human services assistants to call me back to check pt VA coverage of group home. Then called DONY Pyle at [facility] and gave her pt information and she called her contact at the [place] and checked and pt is not eligible for VA to pay for his group home care. I called around to the [facility]'s. [facility] do not have assisted room available right now. [facility] has a respite room and regular room both available, gave me rates. [facility] does not have a respite room but has regular room. I called daughter Josselyn [phone] and discussed all the above with her, she is at [facility] right now looking at room and discussing rates, gave her [facility] info and told her she can go over there as well if she would like to look at room. She will make decision and let me know in the morning where pt will go on discharge.
--- NOTE | 2017-03-28 19:24 | NUR ---
Significant Event: Patient alert and oriented. Vitals stable. Ecchymosis to R) arm and abrasions to legs bilaterally. Soreness to axillary area bilaterally. Sore to R) medial buttock, aloevesta applied x2. IV to R) anterior forearm, saline locked. Cardiac diet and 2000 mL fluid restriction. Scant BM on 6 in am. Patient to receive Lidocaine patch before bed on 03/28. One time PO dose of K and PRN percocet x1. Follow Up: Family and care managers working together on placement. Bed alarms for safety.
--- NOTE | 2017-03-28 19:30 | NUR ---
I HAVE REVIEWED AND AGREE WITH CHARTING COMPLETED BY [facility] STUDENT EMILY DUFFY FROM [id number] [employer] [place]
--- NOTE | 2017-03-29 05:03 | NUR ---
Patient alert and oriented x3, can be forgetful at times, very pleasant and cooperative, VSS, has lidoderm patch to right upper back placed at bedtime, rested in chair until about 0100 and then layed in bed, need repostioning due to sore on buttocks, gaitbelt needs placed lower due to upper body/under arm pain, has been one assist with transfers this shift has cardiac diet and 2000ml fluid restriction was well under the limit this shift, he and his are looking for skilled placement
[2017-03-29 05:49] LABS: ANION GAP 15.6 (10.0-19.0); CALCIUM 8.9 mg/dL (8.5-10.5); CREATININE 1.8 mg/dL (0.6-1.3); POTASSIUM 3.6 mMol/L (3.7-5.1)
--- NOTE | 2017-03-29 12:50 | NUR ---
Talked with daughter this morning, [facility] can't admit for a few days as fixing linoleum in bathroom of room pt and his will go in. [facility] louise, I called [facility] and they only have an apartment in the dementia unit but may be next week when they can admit, daughter welcome to go look at it. Called [facility], they are full. [facility] came to assess and Shannan with [facility] called me and they can accept if that is what family chooses. I called SNFs and [facility] has a male bed or a private room for both if they want them to assess. Talked with daughter right before CC assessed and let her know the above, she will let me know what they decide. Went back to room after [facility] assessed and pt alone, daughters and out, assume they went to look at facilities. Will talk with them this afternoon about what they want to do.
--- NOTE | 2017-03-29 17:16 | NUR ---
Daughter Josselyn called me and they will take pt and to [facility] tomorrow, would like PT ordered for her dad, will see if [facility] can do outpt pt (coming into building) or if will need to order it through . Called Shannan at [facility] [phone] and faxed referral information to her at [phone].
--- NOTE | 2017-03-29 17:27 | NUR ---
Significant Event: PT AO. VSS ON RA, AFEBRILE. IV SALINE LOCKED R FA . PT/OT WORKING WITH. BAG BATH COMPLETED WITH OT. AMBULATES WITH 1PA, GAITBELT AND WALKER. TOLERATING CARDIAC DIET, 2000ML FLUID RESTRICTION. SORE TO R BUTTOCK, ALOE VESTA APPLIED. DRESSING TO SKIN TEAR ON R ARM CHANGED. PRN PERCOCET X2, LAST AT 1445. LOTS OF FAMILY AT BEDSIDE THIS AM. DAUGHTER (POA) VOICED CONCERNS OF "NOT DOING ANYTHING TO HELP HIM GET BETTER" , CM IN TO SPEAK WITH AND HELP CALM. PLAN IS TO [employer] [facility], POSSIBLY TOMORROW. NO OFFICIAL TIME OF NOW. Follow up: [employer], REPOSITIONING
--- NOTE | 2017-03-29 17:33 | NUR ---
I HAVE REVIEWED AND AGREE WITH CHARTING COMPLETED BY [facility] STUDENT EMILY DUFFY FROM [id number] [employer] [place]
--- NOTE | 2017-03-30 04:38 | NUR ---
Significant Event: VSS ON RA. 363 ML IN. PERCOCET ADMINISTERED AT 2133. UP WITH 1PA. SL TO R HAND SLUGGISH TO FLUSH. Follow up:
--- NOTE | 2017-03-30 11:09 | NUR ---
PT MOVED TO NO RISK INTAKE CONSISTENTLY 75-100% AND ADEQUATE FOR HEALING. WILL CONT ENSURE TID TO MAINTAIN NUTRITION STATUS AND ASSIST NEEDED.
[2017-03-30] MEDS ORDERED: PERCOCET 5-3251 EACH PO (12:04)
--- NOTE | 2017-03-30 14:35 | NUR ---
Patient discharging to [facility] today, called and talked with nurse there and faxed orders, they will arrange for P.T. services to come to [facility] and see pt 3xwk. 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 Discussed with her applying for Medicaid, then once approved making appt at [facility] to apply for Medicaid Waiver program to try to get assistance for them at home, or that if not able to be home then Med Waiver would pay for assisted living, straight Medicaid pays for SNF, but won't pay for [facility], that has to be paid for by Med Waiver and that not all [facility]'s accept Med Waiver or have Med Waiver beds available so those are questions to ask of [facility] in the future for future planning. She voices understanding.
--- NOTE | 2017-03-30 15:40 | NUR ---
D: ORDERS RECEIVED FOR THE PATIENT TO BE DISCHARGED TO [facility]. I: DISMISSAL INSTRUCTIONS WERE PREPARED AND REVIEWED VIRTUALLY WITH THE PATIENT DAUGHTER'S AND THE PATIENT WAS PRESENT. THE FOLLOWING INFORMATION WAS DISCUSSED INCLUDING [employer] TEACHING SHEETS PROVIDED: PREVENTING FALLS-MAKE YOUR HEALTH A PRIORITY, PREVENTING FALLS IN THE HOME, PREVENTING FALLS-STAYING ACTIVE, PREVENTING FALLS-MAKING CHANGES IN YOUR LIVING SPACE, EXERCISES TO PREVENT FALLS, PREVENTING FALLS-HOW TO PREPARE AND WHAT TO DO, PREVENTING FALLS-MOVING SAFELY OUTSIDE, PREVENTING FALLS-MOVING SAFELY OUT OF A CHAIR AND BED, PREVENTING DVT, AND BRUISES (CONTUSIONS). NO NEW MEDICATION WERE ORDERED BUT THEY DID GIVE THE PATIENT A PRECRIPTION FOR PERCOCET ONE OF HIS HOME MEDICAITON. REMINDED THE DAUGHTERS THAT HE WILL NEED TO TAKE THAT PRESCRIPTION TO THE PHARMACY TO BE FILLED. R: THE PATIENT'S DAUGHTER'S BOTH VERBALIZED UNDERSTANDING OF THE DISMISSAL EDUCATION AT THE TIME OF TEACHING WITH NO FURTHER QUESTIONS. THEY DID ASK THE PATIENT IF HE HAD ANY QUESTIONS AT THIS TIME AND HE STATED NO. P: THE ABOVE INFORMATION WAS SHARED WITH THE PRIMARY NURSE AND THE CHARGE NURSE THAT THE DISMISSAL EDUCATION WAS COMPLETED. THE PATIENT IS READY FOR DISCHARGE TO THE [facility]AIR BY NURSING STAFF. WHERE HIS DAUGHTERS WILL TAKE HIM TO THE ASSISTED LIVING TODAY.
[2017-04-10] MEDS ORDERED: ULTRAM50 MG PO (16:16)
[2017-05-21] MEDS ORDERED: MILK OF MA400 MG/5 M PO (14:01)
[2017-05-21] MEDS ORDERED: SENNA8.6 MG PO (14:01)
[2017-05-21] MEDS ORDERED: GUAIFENESIN-DM10 ML PO (14:13)
[2017-07-05] MEDS ORDERED: LEVAQUIN 250 M250 MG PO (16:04)
== END 2017-03-30 16:05 | disposition other institution (70) ==
LOC: GMSU 15:06
PROVIDERS: Physician Assistant; ADMIT Internal Medicine
DX: S20.211A Contusion of right front wall of thorax, initial encounter (principal); S51.011A Laceration without foreign body of right elbow, initial encounter; I13.0 Hypertensive heart and chronic kidney disease with heart failure and stage 1 through stage 4 chronic kidney disease, or unspecified chronic kidney disease; N18.4 Chronic kidney disease, stage 4 (severe); I50.42 Chronic combined systolic (congestive) and diastolic (congestive) heart failure; D63.8 Anemia in other chronic diseases classified elsewhere; I48.2 Chronic atrial fibrillation; G20 Parkinson's disease; E03.9 Hypothyroidism, unspecified; J44.9 Chronic obstructive pulmonary disease, unspecified; I35.0 Nonrheumatic aortic (valve) stenosis; I25.5 Ischemic cardiomyopathy; L89.313 Pressure ulcer of right buttock, stage 3; R26.89 Other abnormalities of gait and mobility; Z86.73 Personal history of transient ischemic attack (TIA), and cerebral infarction without residual deficits; Z87.19 Personal history of other diseases of the digestive system; Z87.891 Personal history of nicotine dependence; Z88.8 Allergy status to other drugs, medicaments and biological substances; Z91.041 Radiographic dye allergy status; Z79.899 Other long term (current) drug therapy; Z95.810 Presence of automatic (implantable) cardiac defibrillator; Z98.890 Other specified postprocedural states; W01.0XXA Fall on same level from slipping, tripping and stumbling without subsequent striking against object, initial encounter; Y93.89 Activity, other specified; Y92.017 Garden or yard in single-family (private) house as the place of occurrence of the external cause
CPT/HCPCS: G0378; G0379; G8978; G8979; G8980; G8987; G8988; G8989

== ENCOUNTER 2017-04-13 16:55 | Inpatient (IN) | payer MEDICARE, OTHER ==
[~2017-04-13] VITALS: Ht 185.4 cm; Wt 102.3 kg
--- NOTE | ~2017-04-13 | CON ---
PATIENT'S NAME: OLGA FOSTER [facility] AGE: 86 Y [address] ROOM: [place] [address] LOCATION: GPCU ADMIT DATE: 04/13/2017 Consultation DISCHARGE DATE: FAMILY PHYSICIAN: Remy Gilman MD ATTENDING PHYSICIAN: AAN ROBERTS DATE OF CONSULTATION: 04/13/2017 HISTORY OF PRESENT ILLNESS: Dr. Roberts has requested that I provide an inpatient consultation on this 86- year-old gentleman. I had specifically been asked to evaluate the left elbow. The patient was evaluated for this problem in his primary care physician's office earlier today (Dr. Gilman). Dr. Gilman recommended admission. The patient has subsequently been admitted to the hospitalist service and I was consulted late this evening. The patient states that his elbow pain commenced insidiously 3 days ago. There was no precipitating trauma. He denies fevers or chills. He states that the pain is localized throughout the elbow. He notes limited range of motion. MEDICATIONS ON ADMISSION: 1. Allopurinol. 2. Amiodarone. 3. Sinemet. 4. Lasix. 5. Protonix. 6. Lipitor. 7. Symbicort. 8. Zaroxolyn. 9. Mycostatin cream. 10. Albuterol. 11. Lasix. 12. Percocet. 13. Voltaren gel. 14. Senna. 15. Lanoxin. 16. Potassium supplement. 17. Levothroid. 18. Ultram. 19. Tylenol. 20. Magnesium supplement. 21. Fumarate. PHYSICAL EXAMINATION: PATIENT'S NAME: OLGA FOSTER [facility] AGE: 86 Y [address] ROOM: [place] [address] LOCATION: GPCU ADMIT DATE: 04/13/2017 Consultation DISCHARGE DATE: FAMILY PHYSICIAN: Remy Gilman MD ATTENDING PHYSICIAN: ANA ROBERTS GENERAL: The patient is alert and oriented. EXTREMITIES: There is mild erythema at the olecranon. There is mild generalized swelling at the elbow, but there is no palpable fluctuance. There is no fluid at the olecranon bursa. There are no active skin lesions. Elbow range of motion is limited from a 30-degree flexion contracture to 100 degrees of flexion. There is significant pain with passive range of motion. There is no crepitation. With 2+ radial pulse. Hotel Breakfast Attendant strength and digital abduction motor strength are both 4/5. RADIOGRAPHS: AP and lateral radiographs of the left elbow demonstrate no fracture. There is no dislocation or subluxation. There is no joint space narrowing. There is a markedly positive Sail sign. IMPRESSION: Left elbow effusion. DIFFERENTIAL DIAGNOSIS: Includes the following: Hemarthrosis secondary to trauma, septic arthritis, gout, pseudogout. RECOMMENDATIONS: I recommended and performed an aspiration. The fluid appeared purulent. Cell count, crystal analysis, Gram stain and cultures are pending. I have informed the patient that I would recommend arthroscopic irrigation and debridement if the synovial fluid analysis suggest infection. I have discussed technical aspects of elbow arthroscopy as well as risks and limitations thereof. I have specifically discussed the potential for infection (persistent and/or recurrent) neurovascular complications, stiffness, as well as the potential need for further surgery. Informed consent has been granted. Tentative arrangements have been made to proceed with arthroscopic irrigation and debridement first thing in the morning, but we will re-evaluate this after reviewing the patient's cell count and Gram stain results. MD REGINE KLEIN/ignacio PATIENT'S NAME: OLGA FOSTER [facility] AGE: 86 Y [address] ROOM: [place] [address] [facility] ADMIT DATE: 04/13/2017 Consultation DISCHARGE DATE: FAMILY PHYSICIAN: Remy Gilman MD ATTENDING PHYSICIAN: ANA ROBERTS /[id number] d: 04/14/17421 t: 04/29/173, CONSULTATION REPORT
--- NOTE | ~2017-04-13 | CON ---
PATIENT'S NAME: OLGA FOSTER [facility] AGE: 86 Y [address] ROOM: [id number] [place], [place] [address] LOCATION: GPCU ADMIT DATE: 04/14/2017 Consultation DISCHARGE DATE: FAMILY PHYSICIAN: Remy Gilman MD ATTENDING PHYSICIAN: HARVEY DAMON V REFERRING PHYSICIAN: ALEX ANAND MD REASON FOR CONSULTATION: Bradycardia. HISTORY OF PRESENT ILLNESS: This is an 86-year-old gentleman who [facility] He has a history of heart failure with last known ejection fraction of 30% in December 2016. He also has a history of dilated right ventricle and aortic stenosis that is being evaluated by [facility]. He was admitted with left elbow pain. He underwent an aspiration of that elbow with Dr. Sesay. They are ruling out an effusion versus septic arthritis. There is also a differential of pseudogout documented. The patient was in his usual state of health with lying in bed when staff noted that his heart rate was in the 30s, but he did have a pacemaker evaluation and it did not show any bradycardia. He has not had any further falls since his last fall in the first part of March when he tripped over a hose hitting his elbow. He denies any lightheadedness or dizziness. He denies feeling any palpitations. No presyncope or syncopal episodes. He has a history of paroxysmal atrial fibrillation and has been on amiodarone therapy, but due to recurrent GI bleeds, he is not on long-term anticoagulation. He does have problems with instability of gait and uses a walker at home. He is not very active and is a functional class III. PAST MEDICAL HISTORY: 1. Coronary artery disease, nonobstructive per left heart catheterization in 2011. 2. Parkinson's. 3. Aortic stenosis, being evaluated by [facility], Dr. Becerril. 4. Chronic kidney disease. 5. History of CVA in 12/2012. 6. Paroxysmal atrial fibrillation. 7. High-risk medication - amiodarone. 8. History of atrial thrombosis. 9. Ischemic cardiomyopathy post ICD placement, Medtronic. 10. Recurrent GI bleeds. 11. Right rotator cuff tear noted in 02/2017. 12. 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 13. Left elbow effusion. 14. Anemia of chronic disease. 15. Hypothyroidism. 16. Combined diastolic and systolic heart failure. PATIENT'S NAME: OLGA FOSTER [facility] AGE: 86 Y [address] ROOM: [id number] [place], [place] [address] LOCATION: GPCU ADMIT DATE: 04/14/2017 Consultation DISCHARGE DATE: FAMILY PHYSICIAN: Remy Gilman MD ATTENDING PHYSICIAN: HARVEY DAMON V 17. Dyslipidemia. 18. Cerebral hemorrhage in 1959. 19. He has a history of possible ulcerative colitis. PAST SURGICAL HISTORY: 1. Endovascular abdominal aortic aneurysm with stent in 04/2016. 2. Right intra-articular joint injection of the shoulder. 3. ICD placement, Medtronic. 4. Left heart catheterization, nonobstructive coronary artery disease, in 2011. 5. History of colonoscopy. 6. Lumbar surgery. 7. TURP. 8. Cysto with bladder tumor removal. SOCIAL HISTORY: He is . He has a very attentive daughter. He has a remote history of tobacco use. Smoked a pack of cigarettes a day for 62 years, started at the age of 21, quit smoking several years ago. He has a history of alcohol use. He drinks socially. FAMILY HISTORY: Mother at the age of 103. Father in his 60s of lung injury. He had a brother with diabetes mellitus and cancer. REVIEW OF SYSTEMS: GENERAL: He denies fevers or chills. He is complaining quite a bit of pain in his left arm. HEAD: No history of headaches. EYES: He wears corrective lenses. EARS: He is hard of hearing. He has ringing in his ears. EYES: He wears glasses, and he has had cataracts. NOSE: No epistaxis or rhinorrhea. MOUTH: No gingival bleeding. THROAT: Denies difficulty with swallowing. PULMONARY: He has a history of COPD. GI: Negative for nausea, vomiting, or diarrhea. Has had recurrent GI bleeds on blood thinners in the past. : History of BPH, and he is post TURP and cysto with bladder tumor removed. He also has a history of chronic kidney disease. He complains of difficulty starting his stream. MUSCULOSKELETAL: He has left elbow discomfort and chronic back pain. SKIN: He has multiple skin tears and open gluteal fold areas. He has had skin cancers removed at the [facility]. NEUROLOGIC: He does have problems with Parkinson's. He has had a recent PATIENT'S NAME: OLGA FOSTER [facility] AGE: 86 Y [address] ROOM: [id number] [place], [place] [address] LOCATION: GPCU ADMIT DATE: 04/14/2017 Consultation DISCHARGE DATE: FAMILY PHYSICIAN: Remy Gilman MD ATTENDING PHYSICIAN: HARVEY DAMON. Feelings of off-balance. PHYSICAL EXAMINATION: VITAL SIGNS: Blood pressure is 112/52, heart rate 60, and temperature is 98. His weight is 209 pounds. He is 6 feet 1 inch tall with a BMI of 27.6. GENERAL: The patient is very hard of hearing. SKIN: Warm, dry, and pink. HEENT: Pupils are equal. NECK: Soft and supple. No lymphadenopathy. No thyromegaly. JVD is flat. LUNGS: Lung sounds are clear but diminished. CV: Regular with a normal S1 and S2. ABDOMEN: Soft. Bowel sounds are present. EXTREMITIES: Show trace of peripheral edema bilaterally. ASSESSMENT AND PLAN: 1. Paroxysmal atrial fibrillation: He remains in a regular sinus rhythm. We will continue Cordarone and digoxin. We will not add long-term anticoagulation. 2. Ischemic cardiomyopathy: His last known ejection fraction is 30%. He is post ICD placement. We will continue with his current medications. The assessment and plan, history of present illness, and physical exam are per Dr. Berrios. Further recommendations will be forthcoming. We will discuss further care with Dr. Shanelle Berrios. CANDE LA APRN FOR MD MONIK ANDREAP/ana cristinal /[id number] d: 04/15/171916 t: 05/02/17 1510, CONSULTATION REPORT
--- NOTE | ~2017-04-13 | CON ---
PATIENT'S NAME: OLGA REES [facility] AGE: 86 Y [address] ROOM: [place] [address] LOCATION: GPCU ADMIT DATE: 04/14/2017 Consultation DISCHARGE DATE: FAMILY PHYSICIAN: Remy Gilman MD ATTENDING PHYSICIAN: HARVEY DAMON V DATE OF CONSULTATION: 04/14/2017 REFERRING PHYSICIAN: ALEX ANAND MD ADDENDUM: HISTORY: Mr. Rees' synovial fluid aspiration cell count demonstrates 149,000 white blood cells (89% neutrophils). Synovial fluid crystal analysis was negative. His erythrocyte sedimentation rate is greater than 120. His C-reactive protein level is 18.9. The Gram-stain demonstrates "many white blood cells." Cultures are pending. Supplemental History: I spoke with the patient's daughter this morning. She informs me (despite the fact that the patient did not report this) that he had been treated with oral antibiotics for an infected "scrape" at the left olecranon region during the month of February. This seemed to improve with oral antibiotics (prescribed by Dr. Gilman). IMPRESSION: Left elbow septic arthritis. RECOMMENDATIONS: I have recommended that we proceed with arthroscopic irrigation and debridement today. Risks, benefits, limitations, and alternatives to this procedure have been thoroughly reviewed, and informed consent has been granted. We will proceed today (pending operating room availability). All of the patient's questions and concerns (as well as those of his daughter) have been answered to their satisfaction. I have explained that further surgery may be warranted. We have discussed the potential adverse sequelae of septic arthritis (including the potential for progressive degenerative changes). MD REGINE KLEIN/ana cristinal PATIENT'S NAME: OLGA REES [facility] AGE: 86 Y [address] ROOM: [place] [address] LOCATION: GPCU ADMIT DATE: 04/14/2017 Consultation DISCHARGE DATE: FAMILY PHYSICIAN: Remy Gilman MD ATTENDING PHYSICIAN: HARVEY DAMON V /[id number] d: 04/14/17 1347 t: 04/29/17 2145, CONSULTATION REPORT
--- NOTE | ~2017-04-13 | DS ---
PATIENT'S NAME: OLGA FOSTER [facility] AGE: 86 Y [address] ROOM: [place] [address] LOCATION: GPCU ADMIT DATE: 04/14/2017 Discharge Summary DISCHARGE DATE: 04/23/2017 FAMILY PHYSICIAN: Remy Gilman MD ATTENDING PHYSICIAN: Marcos Huitron V PRIMARY DIAGNOSES: In this hospitalization are: 1. Left elbow septic bursitis, status post arthroscopic irrigation. 2. Chronic hypoxic respiratory failure, newly diagnosed with O2 dependency. CHRONIC DIAGNOSES: 1. Stage III right buttock full-thickness pressure ulcer present on admission. 2. Chronic atrial fibrillation, not on anticoagulation due to history of bleeding. 3. Chronic kidney disease, stage 3. 4. Left atrial appendage clot. 5. Ischemic cardiomyopathy with ejection fraction of 30%. 6. Status post AICD. 7. Chronic obstructive pulmonary disease. 8. Parkinson's. 9. Ykbeavbs-am-ghtjov aortic stenosis. 10. Anemia of chronic disease. 11. Right shoulder rotator cuff. 12. History of cerebrovascular accident. 13. History of abdominal aortic aneurysm, status post stent grafting. 14. Parkinson's. CONSULTANTS: The consultants who participated in the patient's care are" 1. Dr. Sesay of orthopedics. 2. Dr. Miller of Infectious Disease. 3. [facility]. 4. [facility] and [facility]. PROCEDURES PERFORMED: Aspiration of left elbow and an arthroscopic irrigation of left elbow. SUMMARY OF HOSPITALIZATION: The patient is a chronically ill 86-year-old male with past medical history as dictated above. He was sent to [facility] from his PMD's office with complaints of tender and swollen left elbow. He was seen by Dr. Sesay of Orthopedics, had a bedside aspiration which appeared to be purulent. He has subsequently undergone an arthroscopic irrigation and debridement of his left elbow with cultures that grew penicillin-sensitive Staph. He was started on Ancef which was continued by Infectious Disease. His blood cultures remained negative. PATIENT'S NAME: OLGA FOSTER [facility] AGE: 86 Y [address] ROOM: [place] [address] LOCATION: GPCU ADMIT DATE: 04/14/2017 Discharge Summary DISCHARGE DATE: 04/23/2017 FAMILY PHYSICIAN: Remy Gilman MD ATTENDING PHYSICIAN: Marcos Huitron V He was followed by [facility] and [facility] due to extensive past cardiac history. His medications were optimized for his heart failure which appeared to be controlled throughout his hospital stay. He was also followed by Wound Care for the previously known decubitus ulcers as well as for care of his other skin breakdowns. The patient spent close to 11 days in the hospital, but today he is ready for discharge to swing bed. He did undergo a nocturnal oximetry which qualified for nocturnal oxygen, as he does have a history of COPD. The patient will be discharged today. He is to have the following followup: 1. He is to see Dr. Sesay on May 02. 2. He is to see Infectious Disease Clinic on May 02. 3. He is to follow up with his primary care provider, Dr. Gilman for 1 post hospitalization visit in 7-10 days. 4. The patient is also advised to make an appointment with his primary public works commissioner, Dr. Becerril. He was supposed to have an appointment which was canceled due to his hospitalization. DISCHARGE MEDICATIONS: The patient will be discharged on intravenous Ancef until he is seen in the Infectious Disease Clinic. Complete list of discharge medications is: 1. Ancef 2 g every 12 hours. 2. Allopurinol 100 daily continued. 3. Amiodarone 200 daily continued. 4. Atorvastatin 20 daily continued. 5. Voltaren gel to right shoulder continued. 6. Digoxin 125 daily continued. 7. Furosemide 40 every afternoon discontinued. 8. Furosemide 80 every morning continued. 9. Metolazone 2.5 every day as needed discontinued. 10. Metolazone 2.5 three times a week continued. 11. Levothyroxine 112 every day continued. 12. Mag oxide 400 daily continued. 13. Nystatin to skin tears continued. 14. Pantoprazole 40 daily continued. 15. Potassium chloride 20 mEq twice a day continued. 16. Saccharomyces 250 mg twice a day, new med. 17. Tylenol as needed continued. 18. Senna 2 tabs at h.s. continued. 19. Ultram 50 twice a day as needed continued. 20. Percocet 5/325 one tab every 4 hours p.r.n. continued. 21. Ultram 50-100 q.4 hours as needed continued. 22. Albuterol every 4 hours as needed continued. PATIENT'S NAME: OLGA FOSTER [facility] AGE: 86 Y [address] ROOM: [place] [address] LOCATION: [facility] ADMIT DATE: 04/14/2017 Discharge Summary DISCHARGE DATE: 04/23/2017 FAMILY PHYSICIAN: Remy Gilman MD ATTENDING PHYSICIAN: Marcos Huitron V 23. Carbidopa 25/100 one tab twice a day continued. 24. Symbicort continued. Time dedicated to the patient encounter is 35 minutes. MD HARPER LEWIS/ignacio /[id number] CC: MD Lionel Torres MD Richard A Hranac, MD d: 04/23/17 2354 t: 05/06/17 2315, DISCHARGE SUMMARY
--- NOTE | ~2017-04-13 | CON ---
PATIENT'S NAME: OLGA FOSTER [facility] AGE: 86 Y [address] ROOM: [id number] [place], [place] [address] LOCATION: GPCU ADMIT DATE: 04/14/2017 Consultation DISCHARGE DATE: FAMILY PHYSICIAN: Remy Gilman MD ATTENDING PHYSICIAN: HARVEY DAMON V DATE OF CONSULTATION: 04/16/2017 REFERRING PHYSICIAN: ALEX ANAND MD REASON FOR CONSULT: Right buttock pressure ulcer. HISTORY OF PRESENT ILLNESS: This is an 86-year-old male patient who was admitted to [facility] with left elbow pain. I last saw the patient at the beginning of March. He has a history of diastolic and systolic congestive heart failure, chronic kidney disease, atrial fibrillation, COPD, hypothyroidism, Parkinson disease, and a CVA. His current pressure ulcer has been present since August 2016. He currently is denying pain to the site. He is a nondiabetic. He denies fevers, chills, or sweats. He is slightly hard of hearing. He admits to a poor oral intake. No treatment applied to the site. He denies chest pain. PAST MEDICAL HISTORY: Chronic diastolic and systolic congestive heart failure, chronic kidney disease stage 3, paroxysmal atrial fibrillation, history of a GI bleed, COPD, Parkinson disease, anemia of chronic disease, CVA, hypothyroidism, aortic stenosis, and history of AAA. PAST SURGICAL HISTORY: ICD placement and AAA post stenting. FAMILY HISTORY: Father had a lung injury. SOCIAL HISTORY: The patient lives with his in [place]. He has a remote history of smoking. CURRENT MEDICATIONS: Please refer to the medication administration record. ALLERGIES: IODINE CONTRAST DYE, CHLORHEXIDINE, ELIQUIS, HEPARIN, AND COUMADIN. PATIENT'S NAME: OLGA FOSTER [facility] AGE: 86 Y [address] ROOM: [id number] [place], [place] [address] LOCATION: GPCU ADMIT DATE: 04/14/2017 Consultation DISCHARGE DATE: FAMILY PHYSICIAN: Remy Gilman MD ATTENDING PHYSICIAN: HARVEY DAMON V REVIEW OF SYSTEMS: Pertinent positives addressed in the HPI and all others are negative. PHYSICAL EXAMINATION: VITAL SIGNS: Temperature 97.5, pulse 63, respirations 14, blood pressure 115/60, pulse oximetry 95% on 2 L. Height 6 feet 1 inch and weight 98.8 kg. GENERAL: The patient is alert. HEENT: Head is normocephalic, atraumatic. He is slightly hard of hearing. Oral mucosa dry. RESPIRATIONS: Even and unlabored. EXTREMITIES: +2 pedal pulses. Capillary refill intact. Heels intact. SKIN: The patient's right buttock, he has a healing stage III pressure ulcer. It measures 0.5 cm width x 0.3 cm length x 0.1 cm depth. Wound bed is moist and pink. Shear friction and skin rolling noted to the periwound as well as maceration. Scant serous exudate. To the patient's left buttock, he has shear friction areas with skin rolling. Slightly indurated. Slight open slit to the patient's gluteal crease. Small bloody exudate. Slight redness to groin folds, right worse than left. The proximal penis tip has a small scabbed ulcer. LABORATORY DATA: White blood cell count 9.8, hemoglobin 9.7, hematocrit 28.9, platelets 213. Sodium 135, potassium 4.5, chloride 97, bicarb 30, BUN 74, creatinine 1.8, and glucose 102. ASSESSMENT AND PLAN: Again, this is an 86-year-old male patient who was admitted to [facility] with left elbow pain. He is status post left elbow arthroplasty with I and D by Dr. Sesay. Wound care consult to evaluate his right buttock stage III pressure ulcer. 1. Right buttock stage III full-thickness pressure ulcer, present on admission to [facility]. Healing. Looks the best I have ever seen it. There is evidence of shear friction. We will initiate pressure redistribution measures and have nursing apply Aloe [place] q.i.d. and p.r.n. stooling to this site. Dietary consult ordered. 2. Left buttock shear friction areas. Please see pressure relief measures above. 3. Candidiasis to groins. Nystatin ointment t.i.d. x14 days. 4. Proximal penis ulcer secondary to device-related pressure ulcer from Mai catheter. Catheter was discontinued yesterday. We will instruct nursing to apply Aloe [place] b.i.d. to the site. I would like to thank Dr. Anand for this consult. PATIENT'S NAME: OLGA FOSTER [facility] AGE: 86 Y [address] ROOM: [address] [address] [facility] ADMIT DATE: 04/14/2017 Consultation DISCHARGE DATE: FAMILY PHYSICIAN: Remy Gilman MD ATTENDING PHYSICIAN: HARVEY DAMON V PHOEBE SIMPSON APRN FOR MD DURGA GAN/ignacio /[id number] d: 04/16/172032 t: 04/25/17 1318, CONSULTATION REPORT
--- NOTE | ~2017-04-13 | HP ---
PATIENT'S NAME: OLGA FOSTER [facility] AGE: 86 Y [address] ROOM: [place] [address] LOCATION: GPCU ADMIT DATE: 04/13/2017 History & Physical DISCHARGE DATE: FAMILY PHYSICIAN: Remy Gilman MD ATTENDING PHYSICIAN: ANA ROBERTS DATE OF SERVICE: CHIEF COMPLAINT: Left elbow pain. HISTORY OF PRESENT ILLNESS: The patient is an 86-year-old male with extensive list of past medical problems as listed below. He was seen by his PMD, Dr. Gilman earlier today with complaints of 2 days duration of left elbow swelling, pain, and limited range of motion. The patient was sent into the hospital for further evaluation and management. The patient denies any fevers, chills, nausea, vomiting, diarrhea, chest pain, shortness of breath, or palpitations associated with these symptoms. REVIEW OF SYSTEMS: All systems have been reviewed and are negative aside from pertinent positives mentioned above. PAST MEDICAL HISTORY: As follows: 1. CKD stage 3. 2. Persistent atrial fibrillation, not on anticoagulation. 3. History of GI bleed. 4. Left atrial appendage clot. 5. Ischemic cardiomyopathy with chronic systolic congestive heart failure. 6. Status post ICD. 7. Chronic diastolic congestive heart failure. 8. COPD. 9. Parkinson's. 10. Moderate to severe aortic stenosis. 11. Anemia of chronic disease. 12. Right shoulder rotator cuff. 13. History of CVA. 14. History of abdominal aortic aneurysm status post stenting. PAST SURGICAL HISTORY: 1. AAA status post stent graft. 2. Status post AICD. PATIENT'S NAME: OLGA FOSTER [facility] AGE: 86 Y [address] ROOM: [place] [address] LOCATION: GPCU ADMIT DATE: 04/13/2017 History & Physical DISCHARGE DATE: FAMILY PHYSICIAN: Rmey Gilman MD ATTENDING PHYSICIAN: ANA ROBERTS SOCIAL HISTORY: Significant for prior history of tobacco use, but no ongoing toxic habits. FAMILY HISTORY: Reviewed is noncontributory due to advanced age and multiple medical problems. CURRENT MEDICATIONS: 1. Acetaminophen. 2. Albuterol. 3. Allopurinol. 4. Amiodarone. 5. Atorvastatin. 6. Budesonide/formoterol. 7. Carbidopa/levodopa. 8. Voltaren gel. 9. Digoxin. 10. Furosemide. 11. Levothyroxine. 12. Magnesium oxide. 13. Metolazone. 14. Nystatin. 15. Percocet. 16. Pantoprazole. 17. Potassium chloride supplementation. 18. Sennosides. 19. Tramadol. PHYSICAL EXAMINATION: VITAL SIGNS: His temperature is 97.9, pulse is 51 and paced, respirations 25, blood pressure 144/66, saturating 92% on room air. GENERAL: Appears as a well-developed, well-nourished, chronically ill, elderly male, in no acute distress. NEUROLOGIC: Nonfocal. EYES: Shows pupils are equal and reactive to light. LYMPHATIC: Shows no cervical lymphadenopathy. ENDOCRINE: Shows no thyromegaly. LUNGS: Clear to auscultation. HEART: Rate is bradycardic and regular. GI: Abdomen is soft, nontender, and nondistended. : No costovertebral angle tenderness. VASCULAR: 2+ pedal pulses. SKIN: Warm and dry. MUSCULOSKELETAL: Reveals a swollen, erythematous, and warm left elbow with tenderness to palpation and considerably diminished range of motion. PATIENT'S NAME: OLGA FOSTER [facility] AGE: 86 Y [address] ROOM: [place] [address] [facility] ADMIT DATE: 04/13/2017 History & Physical DISCHARGE DATE: FAMILY PHYSICIAN: Remy Gilman MD ATTENDING PHYSICIAN: ANA ROBERTS PSYCHIATRIC: Reveals appropriate mood, cognition, and affect. LABORATORY RESULTS: Significant for creatinine 2.2 which is at baseline. BUN of 79 which is at baseline. White count of 12.5, hemoglobin of 10, and platelets of 288. ASSESSMENT AND PLAN: This is an 86-year-old male with a swollen left elbow. Differential diagnosis here is: 1. Gout. While the patient does not endorse any history of gout, he is on allopurinol and we will request records from his PMD regarding the diagnosis. 2. Possibility is olecranon bursitis, which I think is more likely. 3. Possibility is possible septic arthritis. I believe that is less likely. We will get a 3-view x-rays of the elbow. I discussed the case with Dr. Sesay, who is planning to aspirate the elbow. We will defer antibiotic, NSAIDs, or colchicine, or steroid for the time being as we would like to get a better diagnosis before we start any sort of aggressive therapy for this gentleman. Based on results of the aspiration, we will decide on the best course of action. I will provide him with symptomatic support and elevation of the extremity. 4. Chronic systolic/diastolic congestive heart failure. The patient appears to be euvolemic. 5. Persistent atrial fibrillation, rate controlled. 6. Chronic obstructive pulmonary disease. This does appears to be at baseline. 7. Deep venous thrombosis prophylaxis will be instituted if the patient stays in the hospital for longer than 48 hours. 8. Additional management will depend on clinical course. 9. Code status. The patient requested to be seen on prior hospitalization and we will confirm that those are his wishes for this hospitalization as well. Time dedicated to this patient's encounter is 35 minutes. MD HARPER LEWIS/ignacio /[id number] D: T: 412 HISTORY & PHYSICAL
--- NOTE | ~2017-04-13 | PUL ---
PATIENT'S NAME: OLGA FOSTER [facility] AGE: 86 Y [address] ROOM: [address] [address] LOCATION: GPCU ADMIT DATE: 04/14/2017 Pulmonary DISCHARGE DATE: FAMILY PHYSICIAN: Remy Gilman MD ATTENDING PHYSICIAN: HARVEY DAMON V NAME OF PROCEDURE: Overnight Pulse Oximetry DATE OF PROCEDURE: April 17 to April 18, 2017 REASON FOR EXAM: Nocturnal hypoxemia RESULTS: The test was performed on room air. The recording time was 8 hours, 58 minutes, and 40 seconds, with a total valid sampling time of 8 hours, 58 minutes, and 4 seconds. The highest pulse was 102, lowest pulse was 56, with a mean pulse of 61. The highest SpO2 was 95%, lowest, SpO2 was 67%, with a mean SpO2 of 87.4%. The patient spent 5 hours, 46 minutes, and 36 seconds with SpO2 less than 89%, representing 64.4% of the total sleep time. The desaturation event index was significantly elevated at 30. PHYSICIAN INTERPRETATION: The patient has evidence of severe nocturnal hypoxia and would qualify for supplemental oxygen as per Medicare criteria. However, because of the severity of his hypoxia with an elevated desaturation event index a sleep study is suggested at this time. MD SASCHA SCHAFFER/roberto /[id number] dtt: 04/25/17 1101 , WALTER MARCANO dtd: 04/20/17 1033
--- NOTE | ~2017-04-13 | OR ---
PATIENT'S NAME: OLGA REES [facility] AGE: 86 Y [address] ROOM: [place] [address] LOCATION: GPCU ADMIT DATE: 04/14/2017 OR/Procedure Report DISCHARGE DATE: FAMILY PHYSICIAN: Remy Gilman MD ATTENDING PHYSICIAN: HARVEY DAMON V SURGEON: Lionel Sesay MD TYPEWRITER ASSEMBLER: None. DATE OF PROCEDURE: 04/14/2017 PREOPERATIVE DIAGNOSIS: Septic arthritis, left elbow. POSTOPERATIVE DIAGNOSIS: Septic arthritis, left elbow. PROCEDURE PERFORMED: Left elbow arthroscopy with arthroscopic irrigation and debridement and limited synovectomy. ANESTHESIA: General endotracheal anesthesia. ESTIMATED BLOOD LOSS: Less than 10 mL. TOURNIQUET TIME: Less than 20 minutes. SPECIMEN: None. IMPLANTS: Small Hemovac drain x1. COMPLICATIONS: None. INDICATION FOR PROCEDURE: Mr. Rees is an 86-year-old male with septic arthritis of the left elbow. Risks, benefits, limitations, and alternatives to arthroscopic irrigation and debridement have been thoroughly reviewed with the patient and his daughter. Culture results from the aspiration that I performed yesterday are pending and could conceivably mill turner to be false negative cultures (based upon the fact that he has been on oral antibiotics over the past month). The patient was treated for a presumed superficial infection several weeks ago. Aspiration yesterday yielded a markedly elevated white blood cell count with a preponderance of neutrophils. We have discussed the potential for persistent infection, neurovascular complications, and potential need for further surgery. Informed consent granted. DESCRIPTION OF PROCEDURE: The patient placed in a right lateral decubitus position after administration of general endotracheal anesthesia. An axillary roll was placed and the right leg was well padded. The pelvis was positioned PATIENT'S NAME: OLGA REES [facility] AGE: 86 Y [address] ROOM: [place] [address] LOCATION: GPCU ADMIT DATE: 04/14/2017 OR/Procedure Report DISCHARGE DATE: FAMILY PHYSICIAN: Remy Gilman MD ATTENDING PHYSICIAN: HARVEY DAMON V perpendicularly to the floor on a pegboard. A well-padded pneumatic tourniquet was placed around the left proximal arm. The left upper extremity was prepped and draped with vigilant sterile technique. The pneumatic tourniquet was inflated to 250 mmHg. A spinal needle was placed through the triangular interval between the olecranon, lateral epicondyle, and radial head. Purulent fluid was aspirated. The elbow was insufflated with 20 mL of sterile saline. An anteromedial portal was made anterior to the intermuscular septum. This was created bluntly with a blunt trocar and inflow cannula. An anterosuperior lateral portal was made using a spinal needle localization technique. 9 L of sterile saline containing bacitracin were irrigated through the joint. There was mild softening and fraying of the articular cartilage at the trochlea, Capitellum, and radial head. There were no high-grade partial thickness defects. The elbow was cycled through a full range of motion several times during the irrigation. There was mildly proliferative synovitis anteriorly. This was debrided with the arthroscopic shaver. A drain was placed through the anterolateral cannula and confirmed to be appropriately positioned intra-articularly prior to extraction of the arthroscopic instrumentation. The two arthroscopy portals were closed with horizontal mattress interrupted 3- 0 nylon sutures. The drain was sutured in place. Dressings consisted of Xeroform gauze followed by sterile gauze, ABD pads, and an Brock wrap followed by a shoulder immobilizer. The patient was extubated and transported to the postanesthesia care unit in stable and comfortable condition. MD REGINE KLEIN/ignacio /[id number] d: 04/14/17 1850 t: 04/29/17 2148, OPERATIVE SUMMARY
--- NOTE | ~2017-04-13 | PUL ---
PATIENT'S NAME: OLGA FOSTER [facility] AGE: 86 Y [address] ROOM: [address] [address] LOCATION: GPCU ADMIT DATE: 04/14/2017 Pulmonary DISCHARGE DATE: 04/23/2017 FAMILY PHYSICIAN: Remy Gilman MD ATTENDING PHYSICIAN: Marcos Huitron V NAME OF PROCEDURE: Overnight Pulse Oximetry DATE OF PROCEDURE: April 22 to April 23, 2017 REASON FOR EXAM: Nocturnal hypoxemia RESULTS: The test was started on room air, but supplemental oxygen of 1 liter/minute was added approximately 3 hours into the study. The recording time was 9 hours, 26 minutes and 12 seconds, with a total valid sampling time of 9 hours, 20 minutes and 40 seconds. The highest pulse was 77, lowest pulse 53, with a mean pulse 61. The highest SpO2 was 99%, lowest SpO2 was 66%, with a mean SpO2 88.3%. The patient spent 4 hours, 9 minutes, and 48 seconds with SpO2 less than 89%, representing 44.6% of the total sleep time. The desaturation event index was elevated at 28.9. PHYSICIAN INTERPRETATION: The patient has evidence of significant nocturnal hypoxia and would qualify for supplemental oxygen as per Medicare criteria. However, because of the severity of his nocturnal hypoxia with an elevated desaturation event index a sleep study is suggested at this time. MD SASCHA SCHAFFER/roberto /[id number] dtt: 04/26/17 1628 , WALTER MARCANO dtd: 04/26/17 1423
--- NOTE | ~2017-04-13 | CON ---
PATIENT'S NAME: OLGA REES [facility] AGE: 86 Y [address] ROOM: [address] [place], [place] [address] LOCATION: GPCU ADMIT DATE: 04/14/2017 Consultation DISCHARGE DATE: FAMILY PHYSICIAN: Gerda Gilman MD ATTENDING PHYSICIAN: HARVEY DAMON V DATE OF CONSULTATION: 04/18/2017 REFERRING PHYSICIAN: ALEX ANAND MD REASON FOR CONSULTATION: Septic left elbow with MSSA. HISTORY OF PRESENT ILLNESS: Mr. Rees is an 86-year-old male, who reports about few days prior to coming in, that he started having increasing left elbow pain. He went in to see Dr. Gilman who noted limited range of motion, pain, and swelling, and admitted him to the hospital. He was evaluated by Dr. Sesay who felt he had a septic elbow and did an aspiration that was concerning for infection on the , so on the , he underwent left elbow arthroscopy with arthroscopic irrigation and debridement, and limited synovectomy. Cultures have shown MSSA. He was initially on cefazolin; however, when the culture came back he was changed to clindamycin and he has remained on that. ID is asked to see for further antibiotics. The patient does not know that he did anything to the elbow, although interestingly he has a culture from back in February of the left elbow, a swab that grew MSSA. He says that there was a wound there, but he says that it healed. I do not have any notation of what was actually there. He did not have fevers, chills, sweats, nausea, vomiting, diarrhea, shortness of breath, cough, or any other symptoms prior to coming. PAST MEDICAL HISTORY: Extensive and includes cardiac disease; ischemic cardiomyopathy; persistent atrial fibrillation, not on anticoagulation; chronic renal failure; congestive heart failure; Parkinson disease; moderate to severe aortic stenosis; anemia; history of a CVA and right rotator cuff surgery; AAA status post stenting. He has an ICD in place as well. ALLERGIES: HE SAYS ARE TO CONTRAST DYE AND "THE SOAP THEY USE IN THE HOSPITAL WHICH I ASSUME IS CHLORHEXIDINE." SOCIAL HISTORY: He is a prior smoker. FAMILY HISTORY: Unremarkable or noncontributory in an 86-year-old male. PATIENT'S NAME: OLGA REES [facility] AGE: 86 Y [address] ROOM: [address] [place], [place] [address] LOCATION: GPCU ADMIT DATE: 04/14/2017 Consultation DISCHARGE DATE: FAMILY PHYSICIAN: Gerda Gilman MD ATTENDING PHYSICIAN: HARVEY DAMON V REVIEW OF SYSTEMS: All remaining review of systems otherwise negative. Pertinent positives and negatives in the HPI. PHYSICAL EXAMINATION: GENERAL: He does not look acutely ill. He easily arouses. VITAL SIGNS: His T-max is 98.1, blood pressure is 107/53, pulse 61, respirations 18. HEENT: NC/AT, EOMI, KEIRY. NECK: Supple. LUNGS: Clear. HEART: Irregularly irregular with a 3/6 systolic murmur. ABDOMEN: Soft, nontender. EXTREMITIES: Reveal positive edema. His left elbow is wrapped. SKIN: Without rash. He has a right subclavian line which he says took [address] LABORATORY DATA: His creatinine is 1.9. He had a CRP that was 18.9 on the . White count 7.4, hemoglobin 9.7, interestingly his MCV is 103.5. His platelet count is 227. His sedimentation rate was greater than 120 on the , it was canceled on the for whatever reason. Synovial fluid had 149,600 white cells, 89% of which were polys. Crystal exam was negative. Culture of the aspiration grew Staph aureus which was MSSA resistant only to penicillin. Interestingly, the culture in February 27 from what was described as a left elbow swab was sensitive to penicillin. ASSESSMENT/PLAN: Septic left elbow. I do not know if this was direct extension from wound versus hematogenous seeding. In any case, he had I and D on 04/13, thus made that the SNF apparently can handle as they could do daily or every 12 hour antibiotics and given his renal insufficiency would be cefazolin. Otherwise, change from the clindamycin but he did not appear to have any rash or reaction. We will change him back to the cefazolin 2 g every 12 hours. We will see him in the ID Clinic on 05/02 or 05/03 and decide if he needs further antibiotics or change to oral at that point in time. I would plan on somewhere between 3 and 4 weeks of antibiotics which would be about that time frame. We will get a weekly CBC, BMP, sedimentation rate, and CRP, and have him fax to the ID Clinic while he is on is IV antibiotics. Please call with questions. GERDA MOORE MD PATIENT'S NAME: OLGA REES [facility] AGE: 86 Y [address] ROOM: [place] [address] [facility] AD[facility] DATE: 04/14/2017 Consultation DISCHARGE DATE: FAMILY PHYSICIAN: Gerda Gilman MD ATTENDING PHYSICIAN: HARVEY DAMON/ignacio /[id number] d: 04/18/179 t: 05/16/17 1833, CONSULTATION REPORT
--- NOTE | ~2017-04-13 | OR ---
PATIENT'S NAME: OLGA FOSTER [facility] AGE: 86 Y [address] ROOM: [place] [address] LOCATION: GPCU ADMIT DATE: 04/13/2017 OR/Procedure Report DISCHARGE DATE: FAMILY PHYSICIAN: Remy Gilman MD ATTENDING PHYSICIAN: ANA ROBERTS SURGEON: Caitlin Sims MD PHARMACY SALES REPRESENTATIVE: None. DATE OF PROCEDURE: 04/13/2017 PREOPERATIVE DIAGNOSES: 1. Left elbow effusion. 2. Potential septic arthritis. POSTOPERATIVE DIAGNOSES: 1. Left elbow effusion. 2. Potential septic arthritis (differential diagnosis includes septic arthritis, pseudogout, and gout). PROCEDURE PERFORMED: Left elbow aspiration. ANESTHESIA: Local. COMPLICATIONS: None. SPECIMEN: Synovial fluid for cell count, Gram stain, and routine cultures. INDICATION FOR PROCEDURE: Please refer to the separately dictated consultation note. The patient informed of the risk of iatrogenic infection. Informed consent granted. DESCRIPTION OF PROCEDURE: After granting informed consent and verbally confirming that the left elbow was the site of intended aspiration, the lateral aspect of the left elbow was prepped with DuraPrep. Subcutaneous tissues at the central aspect of the triangle formed by the olecranon, radial head, and lateral epicondyle were infiltrated with 5 mL of 1% plain lidocaine using a 25-gauge needle. The skin was subsequently re-prepped, and an 18- gauge needle was advanced through the anesthetized area into the joint space, 2 mL of seemingly purulent yellow colored fluid was aspirated. This was sent for cell count, Gram stain, crystal analysis, and routine cultures. The patient tolerated this well and there were no breaches in sterile technique. CAITLIN SIMS MD PATIENT'S NAME: OLGA FOSTER [facility] AGE: 86 Y [address] ROOM: [place] [address] LOCATION: GPCU ADMIT DATE: 04/13/2017 OR/Procedure Report DISCHARGE DATE: FAMILY PHYSICIAN: Remy Gilman MD ATTENDING PHYSICIAN: ANA ROBERTS/ignacio /[id number] d: 04/14/17 0405 t: 04/29/17 2140, OPERATIVE SUMMARY
[~2017-04-13 16:55] MED LIST changes: +SENNA8.6 MG PO; +VOLTAREN 1% GE100 GM TOP
[2017-04-13] MEDS ORDERED: LANOXIN (DIGI125 MCG PO (17:26)
[2017-04-13] MEDS ORDERED: PERCOCET 5-3251 EACH PO (17:28)
[2017-04-13] MEDS ORDERED: SYMBICORT 16010.2 GM INH (17:29)
[2017-04-13] MEDS ORDERED: MAG-OX-400(241400 MG PO (17:36)
[2017-04-13] MEDS ORDERED: K-TAB ER20 MEQ PO (17:41)
[2017-04-13] MEDS ORDERED: LEVOTHROID (S112 MCG PO (17:42)
[2017-04-13] MEDS ORDERED: ULTRAM50 MG PO ×2 (17:43→17:47)
[2017-04-13] MEDS ORDERED: TYLENOL325 MG PO (17:44)
[2017-04-13 18:43] LABS: BASOPHIL % 0.3 %; EOSINOPHIL # 0.1 K/uL (0.0-0.5); HEMATOCRIT 29.9 % (33.0-50.0); IMMATURE GRANULOCYTE # 0.1 K/uL (0.0-0.3); IMMATURE GRANULOCYTE % 0.6 %; LYMPHOCYTE # 0.6 K/uL (0.8-4.0); LYMPHOCYTE % 5.1 %; MCH 34.5 pg (27.0-34.0); MCHC 33.4 gm/dL (32.0-36.5); MCV 103.1 fl (83.0-98.0); MONOCYTE # 1.2 K/uL (0.0-1.0); MONOCYTE % 9.7 %; MPV 10.2 fl (9.4-12.4); NEUTROPHIL # (ANC) 10.4 K/uL (1.4-9.0); NEUTROPHIL % 83.3 %; NRBC % 0 /100WBC (0-0.00); RDW-CV 15.4 % (11.9-14.6); WBC 12.5 K/uL (4.0-11.0)
[2017-04-13 18:49] LABS: PLATELET COUNT 288 K/uL (150-450)
--- NOTE | 2017-04-13 18:57 | NUR ---
Significant Event: A/O x3, cooperative with cares. VS, SBP 144, HRs 50-60s in a-fib, on room air. C/O pain 9/10 in L) elbow. L) elbow is red, painful to touch with decrease movement. Up with assist of 2; uses a walker at home. Dr. Oakley notified of admission et orders recieved. Follow up:
[2017-04-13 19:01] LABS: INR - (THERAPEUTIC) 0.99 (0.92-1.07); PROTIME 10.4 SECONDS (9.8-11.4)
[2017-04-13 19:10] LABS: ALBUMIN 3.2 gm/dL (3.5-5.0); ANION GAP 14.4 (10.0-19.0); CREATININE 2.2 mg/dL (0.6-1.3); POTASSIUM 3.4 mMol/L (3.7-5.1); TOTAL BILIRUBIN 0.9 mg/dL (0.0-1.5); TOTAL PROTEIN 7.5 g/dL (6.0-8.4)
--- NOTE | 2017-04-13 19:50 | NUR ---
Patient is 86 yo male admitted this evening for septic olecranon process of the left elbow. Patient's daughter is with patient and very informative of patient's history. Patient is very pleasant. daughter reports that patient has been in and out of the hospitals between [facility] and [place] this spring a couple of times. had a heart cath in [place] in February. On Sunday, patient apparently had a K+ infusion. he states his left elbow burned during infusion. and has hurt ever since. he is admitted with septic olecranon processof the left elbow. IV is started in right antecubital space w/20 ga intracath without difficulty. 11 ml of blood drawn from hub for blood cultures. flushes easily. saline lock is in place without erythema or edema. skin prep pad was used to skin surrounding IV insertion site to prep for the Tegaderm as patient's skin is so fragile. Pt nirmal well. Education is given as documented. Patient and daughter deny questions. Pneumatics are on bilat calves, pt nirmal well. fall and allergy bracelets on, red socks on. call light is within reach. patient denies needs. Report is given to DONY Kelly.
--- NOTE | 2017-04-14 05:10 | NUR ---
Significant Event: Patient is alert/oriented x3. Dr. Huitron saw patient around [address] Sesay (ortho) for left elbow swelling/pain. Dr. Sesay aspirated patient's elbow and ordered to culture synovial fluid. He determined that the patient needs an arthroscopic incision and drainage of that left elbow this AM. Patient has signed consents and has been NPO since midnight. He is on IV Ancef q.8hr. Morphine and Percocet being given for left elbow pain, with some relief. Left arm being kept elevated with pillows for relief as well. Patient experienced some urinary retention and required straight cath x1 with 530 mL out. Mai placed per Dr. Huitron's orders around 0430; insertion was very difficult due to prostate. Patient might benefit from urology consult. Patient has been repositioned as needed, but it is extremely painful for him to reposition due to back pain secondary to old spine fractures and right rotator cuff tear. Vital signs have been stable. He is in chronic atrial fibrillation but rates have been controlled. 1L O2 applied due to O2 sats dropping to mid 80's after morphine administration. Follow up: Plan for I/D of left elbow with Dr. Sesay this AM around 0830.
--- NOTE | 2017-04-14 19:20 | NUR ---
Significant Event: A/O x3, cooperative with cares. VS SBPs 100-140s, HRs pre-procedure 60, post-procedure monitor in room reading heart rates 20-60s, oxygen at [address] Stanley notified of heart rates et patient status; orders recieved et Dr Stanley notified of results. Cardiology consult. Dr. Berrios notified et orders recieved. Pacer rep up to interrogate pacemaker. I&D of L) elbow today. L) arm wrapped in CROW et in an envelope sling. DANIEL drain in place; hourly output at the top of the hour. Output at 1700 approximately 0.5 ml et at 1800 was <0.5 ml. Reposition every 2 hours while in bed. Follow up:
[2017-04-14 19:21] LABS: MAGNESIUM 1.9 mg/dL (1.8-2.6); POTASSIUM 3.4 mMol/L (3.7-5.1)
[2017-04-15 03:19] LABS: HEMATOCRIT 28.9 % (33.0-50.0); HEMOGLOBIN 9.7 g/dL (11.0-16.0); MCH 34.6 pg (27.0-34.0); MCHC 33.6 gm/dL (32.0-36.5); MCV 103.2 fl (83.0-98.0); MPV 9.9 fl (9.4-12.4); RDW-CV 15.2 % (11.9-14.6); WBC 9.8 K/uL (4.0-11.0)
[2017-04-15 03:25] LABS: PLATELET COUNT 213 K/uL (150-450)
[2017-04-15 03:36] LABS: ALBUMIN 2.4 gm/dL (3.5-5.0); ANION GAP 12.2 (10.0-19.0); CALCIUM 8.4 mg/dL (8.5-10.5); CREATININE 1.8 mg/dL (0.6-1.3); PHOSPHORUS 3.3 mg/dL (2.5-4.9); POTASSIUM 4.2 mMol/L (3.7-5.1)
--- NOTE | 2017-04-15 04:03 | NUR ---
Significant Event: Patient is A/Ox3. VSS on 3L NC. No further heart rate issues. Paced at 59bpm. 15.5ml out of DANIEL drain. 375ml UOP. IV Fluids discontinued. Patient is tolerating PO intake well. Potassium level this morning is 4.2 after 60mEq of PO potassium last night. Mg level this morning is 1.8. Percocet x1 for pain. Follow up: Dr. Berrios to see this AM.
[2017-04-15 05:07] LABS: ABSOLUTE NEUTROPHIL CT (ANC) 8.3 K/uL (1.4-9.0); LYMPHOCYTE # 0.5 K/uL (0.8-4.0); LYMPHOCYTE % 5 %; SEGMENTED NEUTROPHIL # 8.3 K/uL (1.4-9.0); SEGMENTED NEUTROPHIL % 85 %
--- NOTE | 2017-04-15 16:46 | NUR ---
Significant Event: A/O x3, cooperative with cares. VSS, SBPs 110s, HRs 60, on room air. No c/o pain to L) elbow; DANIEL drain remains in place with 5 ml of serousanganious drainage out. Output checks changed to every 8 hours. L) arm remains in envelope sling. 1 tab of Percocet given x3, last at 1533, for c/o chronic back pain; minimal relief. Senna, colace et milk of mag given without results. Mai patent et draining yellow urine; february d'c thea. OT seen patient today. Up to chair with 1-2 assist et osvaldo walker; no L) elbow ROM until drain is removed Follow up: WOC consult in AM; ID consult on Sunday. D/C thea; contact Roseline or Angela at Dr. Sesay's office tomorrow for removal of drain.
--- NOTE | 2017-04-16 04:09 | NUR ---
Significant Event: Patient A/Ox3. VSS on RA and 2L @ noc. Mai removed at 0400. 12.5ml out of DANIEL drain. Percocet x1 for back pain. Patient was a heavy 2 assist from his chair to the commode and back to bed. One large loose bowel movement last night. Follow up: PICC placed today?
[2017-04-16 04:32] LABS: ANION GAP 12.5 (10.0-19.0); CALCIUM 8.5 mg/dL (8.5-10.5); CREATININE 1.8 mg/dL (0.6-1.3); POTASSIUM 4.5 mMol/L (3.7-5.1)
--- NOTE | 2017-04-16 12:36 | NUR ---
A - CONSULT D/T O/A'S TO BOTTOM. GLU 102, BUN/PRINTED CIRCUIT BOARD ASSEMBLY REPAIRER 74/1.8, ALB 2.4. PT W/ 1-2+ BLE EDEMA. DIET: CARDIAC W/ POOR MEAL SELECTIONS. PT REPORTS POOR APPETITE BUT TAKES ENSURE AT HOME AND IS RECEPTIVE TO CONTINUING THIS DURING ADMIT. D - AT RISK W/ INADEQUATE ORAL INTAKE R/T DECREASED APPETITE AEB MEAL SELECTIONS AND INTAKE RECORD. I - GOAL: 50% OR BETTER INTAKE. M/E - WILL SEND ENSURE QID W/ B/L/D AND AT HS PER PT PREFERENCE AND F/U IN 3-5 DAYS ON INTAKE.
--- NOTE | 2017-04-16 13:33 | NUR ---
1054 Stopped by to see Rosanna but he was sleeping so I didn't wake him and no family was in the room at the time when I stopped. Talked with DONY Kilgore who tells me that Rosanna is currenly on IV Abx Ancef Q8, ID to see on Sunday, WOC RN is on board, question about him getting a possible PICC placement done for prison IV Abxs needs. In reviewing Lashay' chart, it appears that he was just recently moved to [facility]. DONY Kilgore tells me that he is a heavy 2 assit for transfers and questions if he might need skilled placement or not. Let her know that I would see how Rosanna does with therapies, what he will need for IV Abxs and talk with Rosanna and his family about this and then go from there. 1200 Call from Astrid Cardoso ([facility]) who tells me that prior to Rosanna coming into [facility], they were called by his daugher requesting that they take him on for [facility] services to manage his wound on his arm. Per Astrid, the daughter was previously caring for him wound on his arm and his dressing changes "experimenting with different creams and pointers from the internet on how to care for things" but then got to the point where she couldn't do it anymore so she called us to come in. Astrid tells me that they came to admit Rosanna to their services but he refused to let them come in so they didn't admit him but are open to admitting him once he leaves here if he would need it. Let Astrid know that I would keep her updated as I knew more of what Rosanna would need upon dismissal. CM to continue to follow and assist.
--- NOTE | 2017-04-16 17:00 | NUR ---
Significant Event: A/O x3, cooperative with cares. VSS, SBPs 100-110s, HRs 60s, on room air. 100 mg of Tramadol given at 0821 for c/o back pain; relief noted. Dr. Sesay's PA dc'd drain this morning; drain had 7.5 ml of serous drainage out this morning. WOC seen patient today. Up to chair with 1-2 assist. PT/OT working with patient. Patient left floor at approximately 1400 for PICC line placement. Travis from surgery called stating that PICC line placement was unsuccessful et that patient was going to radiology to have a midline placed; Dr. Stanley aware of this. Follow up: ID consult on Wed
--- NOTE | 2017-04-16 17:17 | NUR ---
PICC ATTEMPTED TO R) BASILIC ALEJANDRO. UNABLE TO THREAD WIRE AND HEMATOMA NOTED TO FORM AROUND VESSEL. NO OTHER VIABLE SITES TO PLACE PICC D/T SMALL CALIBER BRACHIAL AND CEPHALIC VESSELS. L) ARM NOT AVAILABLE TO PLACE PICC D/T SEPTIC L) ELBOW. DR. ANAND NOTIFIED AND ORDER RECEIVED FOR POWERLINE TO BE PLACED. PT SENT TO RADIOLOGY FOR POWERLINE PLACEMENT.
[2017-04-17 03:38] LABS: CALCIUM 8.6 mg/dL (8.5-10.5); CREATININE 1.6 mg/dL (0.6-1.3); MAGNESIUM 1.9 mg/dL (1.8-2.6)
[2017-04-17 04:04] LABS: HEMATOCRIT 29.6 % (33.0-50.0); HEMOGLOBIN 9.7 g/dL (11.0-16.0); MCH 33.9 pg (27.0-34.0); MCHC 32.8 gm/dL (32.0-36.5); MCV 103.5 fl (83.0-98.0); MPV 9.9 fl (9.4-12.4); PLATELET COUNT 227 K/uL (150-450); RBC 2.86 M/uL (3.50-5.50); RDW-CV 15.1 % (11.9-14.6); WBC 7.4 K/uL (4.0-11.0)
--- NOTE | 2017-04-17 05:05 | NUR ---
Significant Event: A/0 X 3, COOPERATIVE WITH CARES. TURNED Q2 SIDE TO SIDE. ALL VSS ON 2L 02, AFEBRILE. RIGHT CHEST POWER PICC DRESSING CHANGED DUE TO OOZING. 1 PERCOCET GIVEN X 1 AT 2201 WITH RELEIF NOTED. LEFT ARM REMAINS IN SLIGHT WITH NO MOVEMENT, DRESSING C/D/I. HE HAS RESTED WELL THIS EVENING. Follow up: ID TO SEE ON SUNDAY FOR ANTIBIOTICS
[2017-04-17 05:15] LABS: ABSOLUTE NEUTROPHIL CT (ANC) 6.2 K/uL (1.4-9.0); LYMPHOCYTE # 0.9 K/uL (0.8-4.0); LYMPHOCYTE % 12 %; MONOCYTE # 0.2 K/uL (0.0-1.0); SEGMENTED NEUTROPHIL # 6.2 K/uL (1.4-9.0); SEGMENTED NEUTROPHIL % 84 %
--- NOTE | 2017-04-17 10:58 | NUR ---
1021 Stopped by to see Rosanna but therapies were in the room working with him. I talked with DONY Kilgore, she tells me that he did get a tunneled PICC line placed yesterday and ID was still going to see him tomorrow to give IV Abxs recommendations. Let DONY Kilgore know that I would try to come back and see Rosanna later today and if she saw his daughter, Josselyn, in the room at anytime, to please let me know so I could come and talk with them both about dismissal plans. Magui tells me that she will do this. CM to continue to follow and assist.
--- NOTE | 2017-04-17 16:51 | NUR ---
Significant Event: A/O x3, cooperative with cares. VSS, SBPs 90-110s, HRs 50-60s, needing O2 at times at 1 liter; currently on RA. No c/o pain. Up with assist 1-2 et osvaldo walker; up to chair. PT/OT working with patient. L) arm remains in a sling. Follow up: ID to see tomorrow; care management to see re: safe d/c plan
[2017-04-18 04:05] LABS: ANION GAP 8.9 (10.0-19.0); CALCIUM 8.6 mg/dL (8.5-10.5); CREATININE 1.9 mg/dL (0.6-1.3); MAGNESIUM 2.1 mg/dL (1.8-2.6); POTASSIUM 3.9 mMol/L (3.7-5.1)
--- NOTE | 2017-04-18 04:22 | NUR ---
Significant Event: A/0 X 3, COOPERATIVE WITH CARES. AMBULTES HEAVY 2 ASSIST TO BEDSIDE COMMODE. HAS CHOSEN TO STAY IN CHAIR THIS EVENING, REPOSITIONED SIDE TO SIDE Q2 HOURS. AND PER REQUEST. ALL VSS. HAS BEEN ON 2L 02 BUT IS NOW ON OVERNIGHT TREND OX. DRESSING CHANGED TO RIGHT CHEST TUNNELED PICC. 1 NORCO GIVEN X 2 AT 2128, NO OTHER COMPLAINTS OF PAIN. Follow up: CARE MANAGEMENT CONSULT TODAY REGARDING PLACEMENT AT [facility] OR AT A SKILLED FACILITY.
[2017-04-18] MEDS ORDERED: ZAROXOLYN2.5 MG PO (08:53)
--- NOTE | 2017-04-18 13:43 | NUR ---
0945 Call to Renetta at [facility]. Updated her to Rosanna and his progress here with us. Asked that she come up and eval him today to see if they would be willing to take him back when ready to go. I let her know that per our nursing staff, he was a heavy 2 assist for transfers. Renetta tells me she will be up later this afternoon to see him and let me know if they can take back or not. 1020 Call from daughter, Josselyn, who is also POA for Rosanna. Updated her to the above, she is fine with [facility] coming to eval him to take him back. Let her know if they can't take him back, we might need to look into SNFs here in town for a short stay for strenghtening before going back to [facility]. Also told her that we were waiting on ID see Rosanna to give recommendations on IV Abxs upon dismissal as well. Josselyn asked that I update her before I talk with Rosanna about SNF placement as that will "upset him and I can handle it better and talk him into things." Let her know that I would do this. 1230 ID rounded, placed Rosanna on Q12 IV Abxs. 1240 Called Josselyn back to update her to this. Also told her [facility] hadn't been up to see Lindseyangelica yet, but I would guess that with him requiring more than one person assist, they were going to recommend SNF. Asked if she would be ok with me calling to the 4 SNFs here in [facility] to see which ones had male beds open and could work with someone with Q12 IV Abxs. She was fine with me doing this but doesn't want me committing her dad to any place without her knowing first. Let her know that I wouldn't fax over any information right now I was just wanting to call to see which, if any, could accomidate Q12 IV Abxs and then go from there. She was fine with this. CM to continue to follow and assist. Left a packet up by Ellen' room for Renetta at [facility] to see when she comes up to eval him today.
--- NOTE | 2017-04-18 16:31 | NUR ---
SIGNIFICANT EVENT: A/O x3. Cooperative with cares. Ambulates heavy 2A with osvaldo walker to BSC. Walked with PT twice. Been in chair most of shift, did lay down for a few hours in bed on his side, per request. All VSS. Has been on RA all of shift with sats 91-94%. Dressing changed on R) upper arm skin tear. Tunneled R) upper chest PICC-no complications and good blood return. Gave ultram this am and percocet this afternoon per request due to pain in back. BM this shift. Care management was consulted today in regards to placement upon discharge-either back to [facility] or a alf facility. FOLLOW UP: Continue with current plan of care.
--- NOTE | 2017-04-19 05:08 | NUR ---
Significant Event:A/Ox3. VSS on RA while awake and 2L when sleeping. HR paced with Afib 1+ BLE edema. Multiple skin tears and fragile skin. Transfers heavy two assist with walker. NWB to L)arm. ?SNF vs FDC? 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 Follow up: Possible discharge today. [facility] to come and assess, if patient unable to go back CM has already contacted 3 SNF that will accept just wanting for CC.
[2017-04-19 12:11] LABS: ANION GAP 11.2 (10.0-19.0); CALCIUM 8.8 mg/dL (8.5-10.5); MAGNESIUM 2.1 mg/dL (1.8-2.6); POTASSIUM 4.2 mMol/L (3.7-5.1)
--- NOTE | 2017-04-19 12:41 | NUR ---
Called and spoke with Renetta from [facility]. She states that after coming up last evening to evaluate Rosanna she feels that they can not provide the level of care he needs. I called and spoke with Josselyn (CARISSA) and updated her on Dea decision. We did discuss the available SNF options. I explained that Bethany had spoke with [facility], [facility] and [facility] and they all have available male beds. I told her I would check with [facility] today. She asked that I check with [place] [facility] [place]. I called and spoke with Blanca Aiken at [facility] she states that they can not accomidate the Q12 hour antibiotics at this time. I called and spoke with Lasahnda at [facility]. They have available beds and can do Q12 hour antibiotics. I called and left a voicemail message for Mikki at the [facility]. Josselyn wants to speak with a couple of people that she knows before having me send referrals. Will wait to hear back from Josselyn and then sent out SNF referrals.
--- NOTE | 2017-04-19 14:16 | NUR ---
A - NUTRITION FOLLOW-UP 1+ BLE EDEMA. O/A TO BOTTOM. LOOKING FOR PLACEMENT. WT STABLE PER RECORD LABS: NA 133, GLU 145, BUN 70, CREA 2.0, CRP 18.9 MEDS REVIEWED DIET: CARDIAC W/ ENSURE ENLIVE QID. INTAKE 42% X8 MEALS. NO APPETITE PER PT BUT HAS BEEN DRINKING 3 BOTTLES OF ENSURE ENLIVE DAILY PER PT. WAITING FOR LUNCH TO ARRIVE. D - INADEQUATE ORAL INTAKE RELATED TO DECREASED APPETITE EVIDENCED BY PO 42% X8 MEALS I - CONTINUE W/ ENSURE ENLIVE QID. M/E - GOAL: PT WILL BE ABLE TO TOLERATE >50% OF MEALS AND AT LEAST TWO ORAL SUPPLEMENTS PER DAY IN 4-6 DAYS.
--- NOTE | 2017-04-19 16:41 | NUR ---
Spoke with Josselyn JUÁREZ) and she ok's for me to fax referrals to [facility], [facility] and [facility] Referrals faxed.
--- NOTE | 2017-04-19 17:18 | NUR ---
Significant Event: A/OX3, FORGETFUL AT TIMES. PT. TRANSFERS 1-2 ASSIST WITH BELT/CANE TO BSC OR BATHROOM. MODERATE BM X1 TODAY. VOIDS FINE. RIGHT CHEST POWERGLIDE HAS NS @ 50mL/HR. PERCOCET GIVEN X2 LAST @ 1620 FOR COMPLAINTS OF BACK/R)ARM PAIN. LEFT SURGICAL INCISION IS COVERED DRESSING IS C/D/I, SLING ON AT ALL TIMES, OKAY FOR ROM. PT. WON'T D/C PROBABLY UNTIL SUNDAY TO [place], WAITING TO HEAR BACK ON WHERE HE'LL BE PLACED. Follow up: CONTINUE WITH POC.
[2017-04-20 03:26] LABS: ANION GAP 11.1 (10.0-19.0); CALCIUM 8.5 mg/dL (8.5-10.5); CREATININE 1.8 mg/dL (0.6-1.3); MAGNESIUM 2.2 mg/dL (1.8-2.6); POTASSIUM 4.1 mMol/L (3.7-5.1)
[2017-04-20 04:07] LABS: BASOPHIL % 0.5 %; EOSINOPHIL # 0.2 K/uL (0.0-0.5); EOSINOPHIL % 2.9 %; HEMATOCRIT 27.8 % (33.0-50.0); HEMOGLOBIN 9.2 g/dL (11.0-16.0); IMMATURE GRANULOCYTE # 0.1 K/uL (0.0-0.3); IMMATURE GRANULOCYTE % 0.9 %; LYMPHOCYTE # 0.6 K/uL (0.8-4.0); LYMPHOCYTE % 8.2 %; MCH 34.6 pg (27.0-34.0); MCHC 33.1 gm/dL (32.0-36.5); MCV 104.5 fl (83.0-98.0); MONOCYTE # 0.6 K/uL (0.0-1.0); MONOCYTE % 8.2 %; MPV 10.4 fl (9.4-12.4); NEUTROPHIL # (ANC) 6.1 K/uL (1.4-9.0); NEUTROPHIL % 79.3 %; NRBC % 0 /100WBC (0-0.00); PLATELET COUNT 263 K/uL (150-450); RBC 2.66 M/uL (3.50-5.50); RDW-CV 15.2 % (11.9-14.6); WBC 7.6 K/uL (4.0-11.0)
--- NOTE | 2017-04-20 04:24 | NUR ---
Significant Event: A/0X3. FORGETFUL. TURNED Q 2 HRS SIDE TO SIDE. ALEO TO BUTTOCKS. AFEBRILE. VSS ON 2L. PERCOCET X2. LAST DOSE WAS AT 0247. PATIENT WAS ABLE TO FIND RELIEF AND REST COMFORTABLY. PICC TO R) CHEST WITH NS AT 50 ML/H. FLUSHES WITH GOOD BLOOD RETURN. CONTINUE WITH IV ANTIBIOTICS. VOIDS FINE. NO BM THIS SHIFT. SLING TO L) ARM INTACT. Follow up: CONTINUE WITH PLAN OF CARE.
--- NOTE | 2017-04-20 09:29 | NUR ---
Lashanda from [facility] called this morning and will assess today.
--- NOTE | 2017-04-20 16:18 | NUR ---
Talked with patient and daughter Josselyn in room, pt has decided he will go to [facility] on Sunday for IV antibx since he can have a private room there. They will discuss this weekend if they want [facility] to come get him or if daughter Josselyn will transport. I called Lashanda at [facility] and let her know, asked her to call Josselyn on her cell number to discuss what she will need to bring, wants to move some things in on Sunday. Faxed orders for IV Cephazolin. Called Kiana with [facility] and let her know pt going to [facility].
--- NOTE | 2017-04-20 16:44 | NUR ---
Significant Event: A/OX3, FORGETFUL AT TIMES, VSS ON ROOM AIR. NORCO GIVEN X1 @ 0702, MORPHINE GIVEN @ 1018 FOR COMPLAINTS OF PAIN. PT. DID HAVE A EMESIS THIS AFTERNOON, ZOFRAN GIVEN @ 1439, NO COMPLAINTS OF N/V SINCE. PT. GETS UP 1-2 ASSIST TO BSC. REPOSITIONS Q2HR, ALOE TO BUTTOCKS. IV TO RIGHT CHEST IS SALINE LOCKED. WILL D/C SUNDAY TO SNF. 700ml X1 VOID THIS SHIFT. PO LASIX WILL RESUME IN AM. KNEE HIGH TEDS ON. Follow up: CONTINUE WITH POC.
[2017-04-21 04:19] LABS: ANION GAP 10.4 (10.0-19.0); CALCIUM 8.5 mg/dL (8.5-10.5); CREATININE 1.6 mg/dL (0.6-1.3); MAGNESIUM 2.1 mg/dL (1.8-2.6); POTASSIUM 4.4 mMol/L (3.7-5.1)
--- NOTE | 2017-04-21 04:25 | NUR ---
Significant Event: Pt A&Ox3. VS stable, put on 2L nc overnight d/t desating. No c/o N/V during shift. Pt was a strong x2 assist while getting up to BSC. Pt needs lots of reminding to not stoop over. Chronic back pain. Gave Percocet x1 and tramadol x1 overnight. PICC to R) chest, SL; int ABx. q2 oswald while in bed. Had 2 large BM's last night. Follow up: Continue plan of care
--- NOTE | 2017-04-21 16:12 | NUR ---
Significant Event: A/OX3, FORGETFUL AT TIMES. PERCOCET GIVEN @ 0739, ULTRAM GIVEN @ 1036 FOR COMPLAINTS OF PAIN. SMALL BM TODAY, VOIDS FINE. UP 1-2 ASSIST TO CHAIR & BSC. RIGHT CHEST DUAL PICC LINE DRESSING CHANGED TODAY. VSS ON ROOM AIR. DRESSING TO R)FA & MEPILEX'S TO R)ELBOW ARE C/D/I. DIGOXIN D/C'D & PT. STARTED ON COREG, HELD AM DOSE D/T BP. FAMILY HERE TODAY. D/C TO [facility] ON SUNDAY. Follow up: CONTINUE WITH POC.
[2017-04-22 04:28] LABS: ANION GAP 9.8 (10.0-19.0); CALCIUM 8.7 mg/dL (8.5-10.5); CREATININE 1.7 mg/dL (0.6-1.3); MAGNESIUM 2.3 mg/dL (1.8-2.6); POTASSIUM 4.8 mMol/L (3.7-5.1)
--- NOTE | 2017-04-22 05:08 | NUR ---
Significant Event: Pt A&Ox3, but forgetful. VS stable, remains on RA while awake. Did have to put 2L on overnight. Stayed in chair overnight. Had BM last night. Gave Percocet x1 dose last night. Will address with pt prior to shift change if pt wants something for pain. PICC to RSC. Follow up: RT to do trend tonight prior to d/c. To d/c Sunday to . Continue plan of care.
--- NOTE | 2017-04-22 16:34 | NUR ---
Significant Event: A/OX3, FORGETFUL AT TIMES. VSS ON ROOM AIR. OVERNIGHT TREND OXIMETRY TO BE DONE TONIGHT. COREG D/C'D & DIGOXIN RESTARTED. RIGHT CHEST PICC IS SALINE LOCKED, CONTINUES ON IV ABX'S Q12H. PT. WILL D/C TO [facility] IN AM, DAUGHTER WILL TRANSPORT. MODERATE BM'S X3 TODAY, VOIDING FINE. PT. GETS UP 1-2 ASSIST TO BSC. ULTRAM GIVEN @ 1555 FOR PAIN. Follow up: DISMISS TO CT TOMORROW.
--- NOTE | 2017-04-23 04:24 | NUR ---
Significant Event: Pt A&Ox3. VS stable, currently on 1L from O2 trend overnight. Pt gets up with x1-2 assist, gaitbelt, and 4WW. Tunneled DL PICC to R) chest. Dressing changed Sunday. Scattered abrasions, skin tears, bruising, etc throughout body. Dressing to L) elbow C/D/I. Will give Percocet prior to shift change for chronic back pain. Follow up: To d/c to [facility] today. Daughter to transport in AM.
--- NOTE | 2017-04-23 12:30 | NUR ---
Alert and oriented X 3. BP 116/55, HR 61, 02 93 room air., RR 18, Temp 97.8. PICC to right subclavian, flushes well with good blood return. Cefalozin given at 1100. Up with 1 assist, gait belt and walker. Does have difficulty getting up off low stools which may need 2 assist. Mepilex to left elbow to remain on till next visit to Dr. Sesay. Last bowel movement 04/22/17. Scattered abraisions. skin tear to right forearm, wrapped with vaseline gauze and gauze wrap. Ultram at 0837. Lidocaine cream sent with patient for bilateral shoulder pain. Pleasant and cooperative with cares.
--- NOTE | 2017-04-23 13:20 | NUR ---
Discharging to [facility] today for skilled stay, daughter transporting. I talked with Lashanda and Coby at [facility] and faxed orders. Nurse working on getting order for topical cream pt was using at home and will call report when pt leaves.
[2017-05-21] MEDS ORDERED: SENNA8.6 MG PO (14:01)
[2017-05-21] MEDS ORDERED: MILK OF MA400 MG/5 M PO (14:01)
[2017-05-21] MEDS ORDERED: GUAIFENESIN-DM10 ML PO (14:13)
[2017-07-05] MEDS ORDERED: LEVAQUIN 250 M250 MG PO (16:04)
== END 2017-04-23 14:00 | DRG 510 ==
LOC: GPCU 16:55
PROVIDERS: Hospitalist; Internal Medicine; Internal Medicine Interventional Cardiology; ADMIT Internal Medicine
DX: M00.822 Arthritis due to other bacteria, left elbow (principal); J96.01 Acute respiratory failure with hypoxia; N17.9 Acute kidney failure, unspecified; L89.313 Pressure ulcer of right buttock, stage 3; L89.319 Pressure ulcer of right buttock, unspecified stage; I48.1 Persistent atrial fibrillation; I50.42 Chronic combined systolic (congestive) and diastolic (congestive) heart failure; G20 Parkinson's disease; A49.01 Methicillin susceptible Staphylococcus aureus infection, unspecified site; D63.8 Anemia in other chronic diseases classified elsewhere; E03.9 Hypothyroidism, unspecified; I25.5 Ischemic cardiomyopathy; I48.0 Paroxysmal atrial fibrillation; J44.9 Chronic obstructive pulmonary disease, unspecified; M10.9 Gout, unspecified; M70.20 Olecranon bursitis, unspecified elbow; N18.3 Chronic kidney disease, stage 3 (moderate)
CPT/HCPCS: C1751; G0378; G0379; J0461; J0690; J1644; J2270; J2405; J3010; J7030; J7050; J7120

== ENCOUNTER → 2017-05-02 | Outpatient (CLI) | payer MEDICARE, OTHER ==
[~2017-05-02] MED LIST changes: +AUGMENTIN 875-1 EACH PO; +BUMETANIDE2 MG PO; +CIPRO500 MG PO; +GUAIFENESIN-DM10 ML PO; +K-TAB ER20 MEQ PO; +LANOXIN (DIGI125 MCG PO; +LEVAQUIN 250 M250 MG PO; +SPIRONOLACTONE25 MG PO; +ZAROXOLYN2.5 MG PO
== END | disposition disaster alternative care site (69) ==
LOC: LGSMG 15:43
DX: D64.9 Anemia, unspecified (principal); L03.114 Cellulitis of left upper limb; I50.42 Chronic combined systolic (congestive) and diastolic (congestive) heart failure; R60.9 Edema, unspecified; Z79.01 Long term (current) use of anticoagulants; Z00.00 Encounter for general adult medical examination without abnormal findings; I10 Essential (primary) hypertension; E87.6 Hypokalemia; E87.1 Hypo-osmolality and hyponatremia; E03.9 Hypothyroidism, unspecified; N18.4 Chronic kidney disease, stage 4 (severe); Z79.899 Other long term (current) drug therapy

== ENCOUNTER → 2017-05-03 | Outpatient (CLI) | payer MEDICARE, OTHER | END | disposition disaster alternative care site (69) | LOC: GRAD 13:11 | PROC: 02PY33Z Removal of Infusion Device from Great Vessel, Percutaneous Approach (ICD-10-PCS; principal; 2017-05-03) | DX: M00.9 Pyogenic arthritis, unspecified (principal); Z79.2 Long term (current) use of antibiotics ==

== ENCOUNTER → 2017-05-16 | Outpatient (CLI) | payer MEDICARE | END | disposition disaster alternative care site (69) | LOC: LGSMG 13:48 | DX: I50.41 Acute combined systolic (congestive) and diastolic (congestive) heart failure (principal); I50.42 Chronic combined systolic (congestive) and diastolic (congestive) heart failure; Z79.01 Long term (current) use of anticoagulants; Z00.00 Encounter for general adult medical examination without abnormal findings; I10 Essential (primary) hypertension; E87.6 Hypokalemia; E87.1 Hypo-osmolality and hyponatremia ==

== ENCOUNTER 2017-05-19 10:55 | Emergency (ER) | payer MEDICARE, OTHER ==
--- NOTE | ~2017-05-19 | HP ---
PATIENT'S NAME: OLGA FOSTER [facility] AGE: 86 Y [address] ROOM: [place] [id number] LOCATION: [facility] ADMIT DATE: 05/19/2017 History & Physical DISCHARGE DATE: 05/19/2017 FAMILY PHYSICIAN: Remy Gilman MD ATTENDING PHYSICIAN: Donovan Bill DATE OF SERVICE: HISTORY OF PRESENT ILLNESS: This 86-year-old male lives at [facility] and his daughter checks in on him every day. She noted that his left elbow was little more swollen and seemed warmer today. He had an I and D of the left elbow by Dr. Sesay in early March and had been on IV antibiotics and oral antibiotics. She thinks it was clindamycin, he has been off the antibiotics now for about a week. He has had no malaise, no fevers or chills. PAST MEDICAL HISTORY: 1. Had atrial fibrillation. 2. Hypertension. 3. Constipation. 4. Vascular disease. 5. Hypothyroidism. 6. COPD. 7. Parkinson disease. SURGICAL: Never had any hip or knee replacements. No artificial joints. FAMILY HISTORY: Positive for hypertension. MEDICATIONS: 1. Amiodarone. 2. Digoxin. 3. Symbicort. 4. Milk of magnesia. 5. Guanfacine. 6. Metolazone. 7. Spironolactone. 8. Pantoprazole. 9. Allopurinol. 10. Atorvastatin. 11. Synthroid. 12. Albuterol. 13. Carbidopa. PATIENT'S NAME: OLGA FOSTER [facility] AGE: 86 Y [address] ROOM: [place] [id number] LOCATION: [facility] ADMIT DATE: 05/19/2017 History & Physical DISCHARGE DATE: 05/19/2017 FAMILY PHYSICIAN: Remy Gilman MD ATTENDING PHYSICIAN: Donovan Bill PHYSICAL EXAM: GENERAL: He is awake, alert. He has a tremor. He has slowed speech, but does answer questions. He denies malaise. VITAL SIGNS: Temp is 98, pulse 84, respirations 17, blood pressure 142/74. EXTREMITIES: He moves the shoulder and elbow without pain. He is quite tender over the olecranon bursa. There is slight warmth and a little fluid. There is no redness to the joint itself, range is 0 to 140 degrees. Supination and pronation good. SKIN: He has thin skin and some ecchymoses in the skin. CHEST: Clear. HEART: Regular rhythm. ABDOMEN: Soft and nontender. DIAGNOSTIC DATA: X-rays of the left elbow show minimal degenerative changes. No fractures. IMPRESSION: Possible septic bursitis, left elbow. I do not think there is any intra- articular infection. PLAN: Left elbow was sterilely prepped. Risks and benefits discussed. Time-out was performed. Left elbow was aspirated for 0.5 mL of cloudy fluid, sent for culture and sensitivity and Gram stain. If it is infected, he might need some antibiotics, might need an I and D. MD KIT GOLDMAN/ignacio /[id number] D: [id number] T: [id number] HISTORY & PHYSICAL
--- NOTE | ~2017-05-19 | ER ---
PATIENT'S NAME: OLGA REES [facility] AGE: 86 Y [address] ROOM: [place] [address] LOCATION: ED ADMIT DATE: 05/19/2017 ER/Outpatient Report DISCHARGE DATE: 05/19/2017 FAMILY PHYSICIAN: Remy Gilman MD ATTENDING PHYSICIAN: Donovan Bill CHIEF COMPLAINT: Elbow infection. HISTORY OF PRESENT ILLNESS: Mr. Rees presents to the emergency department for evaluation of left elbow pain and swelling. Mr. Rees presents for evaluation of the left elbow pain and swelling. It has been a chronic issue and is recently hospitalized for sepsis secondary to olecranon bursitis. He has been in contact with his orthopedic team including Dr. Iraheta who recommended he come in to be evaluated by Dr. Iraheta today. No other concerning signs or features. He is accompanied by his daughter. No other acute issues. PAST MEDICAL HISTORY: Documented on the record and reviewed by me. SOCIAL HISTORY: Documented on the record and reviewed by me. MEDICATIONS: Documented on the record and reviewed by me. ALLERGIES: DOCUMENTED ON THE RECORD AND REVIEWED BY ME. REVIEW OF SYSTEMS: All systems reviewed and negative except as noted in the HPI. PHYSICAL EXAMINATION: VITAL SIGNS: Blood pressure 136/65, pulse 64, respiratory rate is 22, temperature 98.2, SpO2 is 94% on room air. Pain is rated at 4/10. GENERAL: Age-appropriate male, recumbent on the exam table who appears ill with no other obvious abnormalities. NEUROLOGIC: Awake and alert. HEENT: No obvious abnormalities. CHEST: Even and unlabored respirations. ABDOMEN: Benign. Left elbow is notable for what appears to be olecranon bursitis. PATIENT'S NAME: OLGA REES [facility] AGE: 86 Y [address] ROOM: [place] [address] LOCATION: ED ADMIT DATE: 05/19/2017 ER/Outpatient Report DISCHARGE DATE: 05/19/2017 FAMILY PHYSICIAN: Remy Gilman MD ATTENDING PHYSICIAN: Donovan Bill LABS AND X-RAYS: Aspirate was sent for Gram stain, cell count, and culture. IMPRESSION: Left olecranon bursitis without evidence of sepsis. EMERGENCY DEPARTMENT COURSE: The patient was seen evaluated as above. No evidence of sepsis. He was seen primarily by Dr. Iraheta. I do not see any further evidence of the patient requiring further emergency evaluation. He was discharged per Dr. Iraheta on Augmentin. Follow up with Dr. Iraheta as directed. MD ABDI MAX/ignacio /[id number] d: 05/19/17 1748 t: 06/05/17 0859, OUTPATIENT REPORT
[~2017-05-19 10:55] MED LIST changes: -AUGMENTIN 875-1 EACH PO; -BUMETANIDE2 MG PO; -CIPRO500 MG PO; -GUAIFENESIN-DM10 ML PO; -LEVAQUIN 250 M250 MG PO; -SPIRONOLACTONE25 MG PO
[2017-05-21] MEDS ORDERED: MILK OF MA400 MG/5 M PO (14:01)
[2017-05-21] MEDS ORDERED: SENNA8.6 MG PO (14:01)
[2017-05-21] MEDS ORDERED: GUAIFENESIN-DM10 ML PO (14:13)
[2017-07-05] MEDS ORDERED: LEVAQUIN 250 M250 MG PO (16:04)
== END 2017-05-19 11:50 | disposition disaster alternative care site (69) ==
LOC: GMED 10:55
PROC: 0R9M3ZZ Drainage of Left Elbow Joint, Percutaneous Approach (ICD-10-PCS; principal; 2017-05-19)
DX: M70.22 Olecranon bursitis, left elbow (principal); I13.0 Hypertensive heart and chronic kidney disease with heart failure and stage 1 through stage 4 chronic kidney disease, or unspecified chronic kidney disease; I50.9 Heart failure, unspecified; N18.3 Chronic kidney disease, stage 3 (moderate); I48.91 Unspecified atrial fibrillation; E03.9 Hypothyroidism, unspecified; J44.9 Chronic obstructive pulmonary disease, unspecified; G20 Parkinson's disease; Z86.73 Personal history of transient ischemic attack (TIA), and cerebral infarction without residual deficits; Z88.8 Allergy status to other drugs, medicaments and biological substances; Z79.52 Long term (current) use of systemic steroids; Z79.899 Other long term (current) drug therapy; Z79.891 Long term (current) use of opiate analgesic; Z95.810 Presence of automatic (implantable) cardiac defibrillator; Z90.79 Acquired absence of other genital organ(s)

== ENCOUNTER → 2017-05-21 | Day surgery (SDC) | payer MEDICARE, OTHER ==
[~2017-05-21] VITALS: Ht 185.4 cm; Wt 98.2 kg
[~2017-05-21] MED LIST changes: +AUGMENTIN 875-1 EACH PO; +BUMETANIDE2 MG PO; +CIPRO500 MG PO; +GUAIFENESIN-DM10 ML PO; +LEVAQUIN 250 M250 MG PO; +SPIRONOLACTONE25 MG PO
--- NOTE | ~2017-05-21 | OR ---
PATIENT'S NAME: OLGA REES [facility] AGE: 86 Y [address] ROOM: [place] [address] [place] [facility] [place]: 05/21/2017 OR/Procedure Report DISCHARGE DATE: FAMILY PHYSICIAN: Remy Gilman MD ATTENDING PHYSICIAN: CAITLIN SIMS SURGEON: Caitlin Sims MD BENDER HELPER: Sebastián López, IMPRESS ASSOCIATE/AQUATICS SPECIALIST. DATE OF PROCEDURE: 05/21/2017 PREOPERATIVE DIAGNOSIS: Left elbow septic olecranon bursitis. POSTOPERATIVE DIAGNOSIS: Left elbow septic olecranon bursitis. PROCEDURE PERFORMED: Irrigation and debridement of left elbow olecranon bursa with excision of olecranon bursa. ANESTHESIA: Intravenous sedation plus local anesthesia. DRAINS: Milan drain x1. SPECIMEN: None. COMPLICATIONS: None. ESTIMATED BLOOD LOSS: Less than 1 mL. INDICATION FOR PROCEDURE: Mr. Rees is an 86-year-old male presenting with septic olecranon bursitis. He had septic arthritis to the left elbow last month. He has no residual or recurrent signs of septic arthritis, but he has developed subcutaneous fluctuance localized to the olecranon bursa. This was aspirated day before yesterday, and cultures are positive for Staphylococcus aureus. He has not been improving on oral antibiotics. Risks, benefits, limitations, and alternatives to this procedure have been thoroughly reviewed with the patient and his daughter, and an informed consent has been granted. DESCRIPTION OF PROCEDURE: The patient was positioned supine. Prophylactic antibiotics and intravenous sedation were administered. A well-padded pneumatic tourniquet was placed around his left proximal arm. His left upper extremity was prepped and draped with vigilant sterile technique. Examination under anesthesia demonstrated a golf ball-sized region of subcutaneous fluctuance directly over the olecranon. The arm was elevated for 2 minutes prior to inflation of the pneumatic tourniquet to 250 mmHg. A 1.5 cm longitudinal incision was made directly over the region of fluctuance over the olecranon. Approximately, 10 mL of purulent material was evacuated. The margins of the subcutaneous fluid collection were palpated. The fluid did not PATIENT'S NAME: OLGA REES [facility] AGE: 86 Y [address] ROOM: [place] [address] [place] [facility] [place]: 05/21/2017 OR/Procedure Report DISCHARGE DATE: FAMILY PHYSICIAN: Remy Gilman MD ATTENDING PHYSICIAN: CAITLIN SIMS track anteriorly or into the joint space. There was proliferative synovitis around the periphery of this defect. The wall of the defect was excised with a rongeur. The cavity was copiously irrigated with several hundred mL of sterile saline containing bacitracin. The ulnar nerve was vigilantly protected. A Milan drain was tunneled proximally approximately 4 cm and placed within the base of the defect. The incision was closed with multiple horizontal mattress interrupted 2-0 nylon sutures. The dressing consisted of Xeroform gauze, followed by 4 x 4 gauze, ABD pads, and an Brock wrap followed by a sling. POSTOPERATIVE PLAN: Continue Augmentin. Return to the office in 48 hours for removal of the Milan drain. Call in the interim if there is any trend of increased discomfort, fevers or chills, or any other concerning signs or symptoms. MD REGINE KLEIN/modl /[id number] d: 05/21/17 2329 t: 06/01/17 0751, OPERATIVE SUMMARY
[2017-05-21 14:26] LABS: BASOPHIL # 0.1 K/uL (0.0-0.2); BASOPHIL % 0.4 %; EOSINOPHIL # 0.2 K/uL (0.0-0.5); EOSINOPHIL % 1.9 %; HEMATOCRIT 29.3 % (33.0-50.0); HEMOGLOBIN 9.3 g/dL (11.0-16.0); IMMATURE GRANULOCYTE # 0.1 K/uL (0.0-0.3); IMMATURE GRANULOCYTE % 0.5 %; LYMPHOCYTE # 0.6 K/uL (0.8-4.0); LYMPHOCYTE % 5.1 %; MCH 33.3 pg (27.0-34.0); MCHC 31.7 gm/dL (32.0-36.5); MONOCYTE # 0.7 K/uL (0.0-1.0); MONOCYTE % 5.8 %; MPV 9.7 fl (9.4-12.4); NEUTROPHIL # (ANC) 10.2 K/uL (1.4-9.0); NEUTROPHIL % 86.3 %; NRBC % 0 /100WBC (0-0.00); PLATELET COUNT 230 K/uL (150-450); RBC 2.79 M/uL (3.50-5.50); RDW-CV 16.1 % (11.9-14.6); WBC 11.8 K/uL (4.0-11.0)
[2017-05-21 14:45] LABS: ALBUMIN 3.2 gm/dL (3.5-5.0); ANION GAP 14.2 (10.0-19.0); CALCIUM 8.8 mg/dL (8.5-10.5); CREATININE 2.1 mg/dL (0.6-1.3); MAGNESIUM 1.7 mg/dL (1.8-2.6); POTASSIUM 3.2 mMol/L (3.7-5.1); TOTAL PROTEIN 7.2 g/dL (6.0-8.4)
[2017-05-21 14:47] LABS: TOTAL BILIRUBIN 0.6 mg/dL (0.0-1.5)
--- NOTE | 2017-05-21 16:56 | NUR ---
D: Patient sats 88%. I: Cough and deep breath. R: Sats increase to 91-92% D: 1700-Called She TELEPHONY ENGINEER regarding sats. R: order for Ortiz gaitan
--- NOTE | 2017-05-21 17:34 | NUR ---
D: Sats 89-90 % I: Patient coughing and deep breathing. R: Sats 91-92% P: Montor patient
== END | disposition disaster alternative care site (69) ==
LOC: GSDC 13:15 → GPOC 13:15 → GSDC 13:19
PROVIDERS: Nurse Anesthetist, Certified Registered; Orthopaedic Surgery
PROC: 0MB40ZZ Excision of Left Elbow Bursa and Ligament, Open Approach (ICD-10-PCS; principal; 2017-05-21)
DX: M71.122 Other infective bursitis, left elbow (principal); M65.822 Other synovitis and tenosynovitis, left upper arm; G20 Parkinson's disease; M15.9 Polyosteoarthritis, unspecified; E78.00 Pure hypercholesterolemia, unspecified; I48.91 Unspecified atrial fibrillation; I25.2 Old myocardial infarction; H44.9 Unspecified disorder of globe; D64.9 Anemia, unspecified; I35.0 Nonrheumatic aortic (valve) stenosis; E78.5 Hyperlipidemia, unspecified; I13.0 Hypertensive heart and chronic kidney disease with heart failure and stage 1 through stage 4 chronic kidney disease, or unspecified chronic kidney disease; N18.4 Chronic kidney disease, stage 4 (severe); I50.42 Chronic combined systolic (congestive) and diastolic (congestive) heart failure; I73.9 Peripheral vascular disease, unspecified; K21.9 Gastro-esophageal reflux disease without esophagitis; E03.9 Hypothyroidism, unspecified; I25.10 Atherosclerotic heart disease of native coronary artery without angina pectoris; Z87.891 Personal history of nicotine dependence; Z98.890 Other specified postprocedural states; Z79.899 Other long term (current) drug therapy; Z91.041 Radiographic dye allergy status; Z88.8 Allergy status to other drugs, medicaments and biological substances
CPT/HCPCS: J0690; J2001; J7030

== ENCOUNTER 2017-06-03 18:00 | Inpatient (IN) | payer MEDICARE, OTHER ==
[~2017-06-03] VITALS: Ht 185.4 cm; Wt 97.2 kg
--- NOTE | ~2017-06-03 | DS ---
PATIENT'S NAME: OLGA FOSTER [facility] AGE: 86 Y [address] ROOM: [place] [address] LOCATION: GPCU ADMIT DATE: 06/03/2017 Discharge Summary DISCHARGE DATE: 06/07/2017 FAMILY PHYSICIAN: Remy Gilman MD ATTENDING PHYSICIAN: Cintia Tovar DISCHARGE DIAGNOSES: 1. Urosepsis. 2. Essgthpg-ra-zwogao aortic stenosis. 3. Hypokalemia and hyponatremia. 4. Acute on chronic kidney disease. 5. Chronic systolic congestive heart failure. 6. Chronic obstructive pulmonary disease, chronic. 7. Atrial fibrillation, paced with an ICD. 8. Skin ulcer on buttock. PRINCIPLE PROCEDURES: ASH by Dr. Roldan. REASON FOR ADMISSION: Came in. Procalcitonin was elevated. Interestingly, lactate number was and his blood cultures were negative. Urine grew out Pseudomonas, which is the presumed pathogen. ASH yesterday showed no valve vegetations, and he no longer has clot in the atrial appendage in the heart. Did not get a good look at the atrial valve. He has had aggressive diuresis by Nephrology, and his fluid status has remained stable, thus he is not suffering greatly from the CHF at this time, and we have resolved his electrolyte abnormalities. He will be sent out on Cipro, which his Pseudomonas is sensitive to and reference is made to the nursing med recon form. Diet will be ad martha. I think he knows he should probably avoid a lot of fat, but at this point it is about quality of life. Activity will be ad martha. I urged fall precautions because he is a risk that way. We will recommend that he be careful about the skin pressure for any period of time. Followup will be with Dr. Gilman in 1 week and trying to get him in sooner just to make sure we follow his electrolytes, and he is on a high dose of Zaroxolyn 5 mg daily, and I just want him evaluated sooner rather than later given that. Note that discharge took greater than 1-1/2 hours. PATIENT'S NAME: OLGA FOSTER [facility] AGE: 86 Y [address] ROOM: [place] [address] LOCATION: GPCU ADMIT DATE: 06/03/2017 Discharge Summary DISCHARGE DATE: 06/07/2017 FAMILY PHYSICIAN: Remy Gilman MD ATTENDING PHYSICIAN: Cintia Tovar VISHNU GARCIA MD CCJ/modl /[id number] d: 06/08/17 0224 t: 06/09/17 1726, DISCHARGE SUMMARY
--- NOTE | ~2017-06-03 | ER ---
PATIENT'S NAME: OLGA FOSTER [facility] AGE: 86 Y [address] ROOM: [place] [address] LOCATION: GPCU ADMIT DATE: 06/03/2017 ER/Outpatient Report DISCHARGE DATE: FAMILY PHYSICIAN: Remy Gilman MD ATTENDING PHYSICIAN: EMMA PEREZ Time of Arrival: 1800 hours. Time of Evaluation: 1805 hours. CHIEF COMPLAINT: This is an 86-year-old male with multiple medical problems in with family members and report that he has had a fever today and decreased alertness. He has been drowsy and sleeping more than usual for the past 2 days. Past medical history is significant for 2 recent episodes of sepsis. The first episode was a generalized sepsis and subsequent to the hospital admission was noted to have a septic arthritis which was drained by Dr. Sesay. He had a second episode of sepsis and was noted to have a septic bursitis of the elbow and this was also drained. He had been doing fairly well for the past several days until the fever developed. He still is taking Augmentin for his previous infection. PAST MEDICAL HISTORY: Significant for previous strokes. He has history of atrial fibrillation, Parkinson disease, congestive heart failure, and ischemic cardiomyopathy. PAST SURGICAL HISTORY: He has had abdominal aortic aneurysm graft, he has had prostate surgery, he has a pacer, and ICD. CURRENT MEDICATIONS: See list. REVIEW OF SYSTEMS: Otherwise negative. SOCIAL HISTORY: He is a nonsmoker. PHYSICAL EXAMINATION: GENERAL: An alert and cooperative male. He is drowsy, but easily awakened, in no acute distress. VITAL SIGNS: Stable. He has a low grade fever. He is initially normotensive as systolic blood pressure did dip to 100 systolic while in the emergency department. HEAD, EARS, EYES, NOSE, AND THROAT: Normal. PATIENT'S NAME: OLGA FOSTER [facility] AGE: 86 Y [address] ROOM: [place] [address] LOCATION: GPCU ADMIT DATE: 06/03/2017 ER/Outpatient Report DISCHARGE DATE: FAMILY PHYSICIAN: Remy Gilman MD ATTENDING PHYSICIAN: EMMA PEREZ NECK: Supple. HEART: Regular rate and rhythm. He has a coarse grade 3/6 holosystolic murmur. LUNGS: Diminished breath sounds in both bases. He has rales audible on the left. ABDOMEN: Soft and nontender. EXTREMITIES: Normal. The elbow incision looks clean and dry. There is no swelling of the elbow. NEUROLOGIC EXAM: He is awake, drowsy, but easily awakened. He has no focal motor or sensory deficits. DIAGNOSTIC DATA: EKG revealed a wide-complex rhythm that appeared to be a left bundle branch block. LABORATORY DATA: CBC revealed a markedly elevated white blood cell count of 20,000. Venous blood gases were unremarkable. Metabolic panel revealed mild hyponatremia with sodium of 131. Cardiac enzymes were elevated. The troponin was markedly elevated. EMERGENCY DEPARTMENT COURSE: The hospitalist was called and arrived promptly, evaluated the patient, made arrangements to admit the patient. Dr. Sesay was called regarding the episodes of recent septic bursitis. ASSESSMENT: 1. Acute sepsis of uncertain etiology. 2. Non ST-elevation KS. 3. Recurrent sepsis probable source of chronic vascular infection likely sources would be bacterial endocarditis versus infection of the aortic graft. Bacterial endocarditis is favored since the embolic phenomenon involved his elbow. NIA QUISPE MD JDB/modl /[id number] d: 06/04/17 1016 t: 06/07/17 0550, OUTPATIENT REPORT
--- NOTE | ~2017-06-03 | CON ---
PATIENT'S NAME: OLGA FOSTER [facility] AGE: 86 Y [address] ROOM: [id number] [place], [place] [address] LOCATION: GPCU ADMIT DATE: 06/03/2017 Consultation DISCHARGE DATE: FAMILY PHYSICIAN: Remy Gilman MD ATTENDING PHYSICIAN: EMMA PEREZ DATE OF CONSULTATION: 06/04/2017 REFERRING PHYSICIAN: SAUD VILLAGOMEZ This is a [facility] Nephrology consultation. REASON FOR CONSULTATION: History of CKD stage 3. HISTORY OF PRESENT ILLNESS: This is an 86-year-old male patient who is well known to Dr. Villagomez in the Nephrology service, who was admitted with fever, chest pain, and neck pain. The patient has been admitted for further evaluation and sepsis protocol has been initiated. The patient does have a past medical history of CKD stage 3 with baseline creatinine ranging between 1.6 and 2.0. The patient has been doing well over the past few weeks despite having an infected left elbow status post I and D on 05/21/[address] Sesay. The patient is currently living in [facility] and has been doing well with his fluid balance and appeared to be quite optimized. The patient did see Dr. Gilman in the clinic on 05/16/2017 and at that time, he was started on spironolactone 12.5 mg 3 days a week. There was some concern at that time that the patient was having some digoxin toxicity and a digoxin level did show to be 1.43. On 05/21/2017, the patient did undergo an I and D of the left elbow showing MSSA. The patient has been on Augmentin since that time. According to the daughter, the patient did start to develop some intermittent neck pain last week. This has continued to progress and the patient began to develop fever within the last 24 hours. The patient was brought to the emergency room for further evaluation and care. Due to the patient's history of CKD stage 3 with a history of chronic combined systolic and diastolic congestive heart failure, Dr. Villagomez has been consulted to help manage the patient and optimize his fluid volume status. PAST MEDICAL HISTORY: 1. Atrial fibrillation. 2. Coronary artery disease. 3. Severe aortic stenosis. 4. Chronic combined systolic and diastolic congestive heart failure. 5. Abdominal aortic aneurysm, status post endovascular graft placement. 6. CKD stage 3 to 4. 7. Gout. 8. Hyperlipidemia. 9. Venous insufficiency. 10. High-risk medications in the form of amiodarone. 11. Parkinson's. 12. High-risk medications in the form of digoxin. 13. Hypomagnesia. 14. Constipation. 15. GERD. 16. Hypothyroidism. 17. Hyponatremia. 18. Contraindication to anticoagulation secondary to history of GI bleeds. 19. History of ischemic cardiomyopathy with last reported ejection fraction of 30%, status post AICD. 20. History of CVA.PATIENT'S NAME: OLGA FOSTER [facility] AGE: 86 Y [address] ROOM: [place] [address] LOCATION: GPCU ADMIT DATE: 06/03/2017 Consultation DISCHARGE DATE: FAMILY PHYSICIAN: Remy Gilman MD ATTENDING PHYSICIAN: EMMA PEREZ PAST SURGICAL HISTORY: 1. Abdominal aortic aneurysm repair, status post endovascular graft. 2. Status post AICD implant. 3. Status post left elbow aspiration by Dr. Sesay. ALLERGIES: IODINATED CONTRAST. CURRENT HOME MEDICATIONS: 1. Albuterol HFA. 2. Allopurinol 100 mg 2 tablets daily. 3. Amiodarone 200 mg 1 tablet daily. 4. Atorvastatin 20 mg daily at bedtime. 5. Boost 3 times a day. 6. Bumex 2 mg 1 tablet twice a day. 7. Carbidopa and levodopa 25/100 one tablet twice a day. 8. Digoxin 125 mcg 3 days a week. 9. Klor-Con 20 mEq 1 tablet daily. 10. Magnesium oxide 400 mg daily. 11. Milk of magnesia 30 mL every day as needed. 12. Protonix 40 mg daily. 13. Percocet 5/325 one tablet every 4 hours as needed. 14. Senna 8.6 two tablets 3 days a week. 15. Spironolactone 12.5 mg 3 days a week. 16. Symbicort 160/4.5 two puffs p.r.n. as needed. 17. Synthroid 112 mcg daily. 18. Tramadol 50 mg twice a day as needed for pain. 19. Tylenol 325 one tablet every 4 hours as needed for pain. FAMILY HISTORY: Reviewed and is noncontributory. There is family history of diabetes mellitus as well as stroke. There is no history of renal disease or dialysis. SOCIAL HISTORY: The patient does admit to alcohol use. This is intermittent and has been significantly declined since his admission to [facility]. He does use caffeine daily in the form of coffee. He denies any smoking, drinking, or drug use currently. REVIEW OF SYSTEMS: CONSTITUTIONAL: Positive for fatigue. Positive for fever. EYES: No double vision or blurred vision. NOSE: No epistaxis or rhinorrhea. MOUTH: No gingival bleeding. THROAT: No sore throat, hoarseness, or cough. RESPIRATORY: Denies wheezing or hemoptysis. CARDIOVASCULAR: Does complain of some chest pain that is present at rest as well as with exertion. Positive for MORALES. Denies PND or orthopnea. Denies presyncope or syncope. GASTROINTESTINAL: Denies nausea, vomiting, or diarrhea. MUSCULOSKELETAL: Positive neck pain. GENITOURINARY: Denies frequency, urgency, or hesitancy. NEUROLOGICAL: Denies numbness and tingling in the upper or lower extremities. HEMATOLOGIC: No bleeding or bruising. Does have a history of GI bleed, on anticoagulation therapy. IMMUNOLOGIC: Positive for MSSA in his left elbow.PATIENT'S NAME: OLGA FOSTER [facility] AGE: 86 Y [address] ROOM: [place] [address] [facility] ADMIT DATE: 06/03/2017 Consultation DISCHARGE DATE: FAMILY PHYSICIAN: Remy Gilman MD ATTENDING PHYSICIAN: EMMA PEREZ PHYSICAL EXAMINATION: VITAL SIGNS: Blood pressure is 128/70, respiratory rate is 14, heart rate is 72, and temperature is 100.0. GENERAL: On exam, this is an alert and oriented elderly male, who appears quite frail compared to previous visits. HEENT: His head is normocephalic and atraumatic. Eyes: Pupils are equal, round, and reactive briskly to light and accommodation. EOMs are intact. Nose: Midline. Mouth: No gingival bleeding. Throat: Without lymphadenopathy or carotid bruits. NECK: No JVD. LUNGS: Lung sounds are clear to auscultation anteriorly and posteriorly. Diminished more in the left than the right. The patient is on room air. CARDIOVASCULAR: Regular rate and rhythm, paced. Grade 2 to 3 systolic ejection murmur heard best at the right second intercostal space with radiation to the base of the carotids. ABDOMEN: Soft, nontender, and nondistended. Bowel sounds positive. EXTREMITIES: No signs of peripheral edema, clubbing, or cyanosis. NEUROLOGIC: Cranial nerves II through XII are grossly intact. LABORATORY DATA: Chest x-ray did not show any acute infiltrate or pulmonary edema. CBC shows a white count of 19. Creatinine of 2.1. Troponin I was elevated to 0.6, it is now trending down to 0.48. ProBNP is 4061. Sodium 131, glucose 130, BUN is 49, potassium is 3.7, chloride is 90, CO2 is 28, calcium is 8.8, albumin is 3.0, AST 19, ALT 12, and alkaline phosphatase is 85. ASSESSMENT AND PLAN: 1. Chronic kidney disease stage 3. Creatinine is relatively stable at this time. The patient does appear to be slightly hypervolemic on exam. Dr. Villagomez does recommend at this time that we increase his metolazone to 5 mg daily as well as increase his spironolactone to 12.5 mg daily. We will continue to monitor his fluid balance closely with strict intake and outputs as well as daily weights. We will obtain the patient's outpatient clinical record for further recommendations and evaluation. 2. Fever. At this time, there is no source identified. The patient is continuing on meropenem and Zyvox. Continue current plan of care per primary team. 3. History of Methicillin-sensitive Staphylococcus aureus in the left elbow. Per primary team. 4. Paroxysmal atrial fibrillation. The patient continues his amiodarone at this time. Anticoagulation is contraindicated due to the patient's history of gastrointestinal bleed. This patient has been seen and assessed by Dr. Villagomez. His care is being conducted in consultation with Dr. Villagomez as well as me. We will plan further recommendations as they are forthcoming. In the interim, the patient is to continue his current plan of care. TONG IBRAHIM DNP, SINTER MACHINE OPERATOR FOR [facility] MD VY SULLIVAN/ana cristinal /[id number] d: 06/04/175 t: 06/12/17 1129, CONSULTATION REPORT
--- NOTE | ~2017-06-03 | ECHO ---
Transthoracic Echocardiography Report (TTE) Demographics Patient Name OLGA FOSTER Date of Study 06/04/2017 Patient Number [id number] Visit Number [id number] Date of 1930 Room Number G6312 Accession Number [id number] Gender Male Age 86 year(s) Referring [facility] Remy Oakes Service Attendant Evie Wilder RVT, Physician MD DOWNS Physician Interpreting Yash Dye MD Service Unit Operator Oil Well Physician Supervising Ordering Physician Guy García MD/CRIS BELTRAN Nurse Stress Can Doffer Conclusions Contractility Score Summary Summary The estimated left ventricular ejection fraction is 40-45%. Mild concentric left ventricular hypertrophy. Diastolic assessment reveals Grade III restrictive diastolic dysfunction. Mildly dilated right ventricle with severely reduced right ventricular function. The left atrium is severely dilated. The right atrium is severely dilated. Dilated IVC with poor inspiratory collapse consistent with elevated RA pressure. There is severe aortic stenosis by the Continuity Equation. The peak velocity is 3.61 m/s and the mean gradient is 29 mmHg. There is mild aortic regurgitation by color Doppler. Mild tricuspid regurgitation by color Doppler. There is moderate pulmonary hypertension. The pulmonary pressure (RVSP) is 49 mmHg. The ascending aorta appears mildly dilated. The maximum diameter measures 4.3 cm. Procedure Type of Study TTE procedure:2D Echocardiogram. Procedure Date Date: 06/04/2017 Start: 07:53 AM Study Location: Inpatient Portable Technical Quality: Fair Indications:Endocarditis. Appropriate Use Criteria: 8 Patient Status: Routine Rhythm: Paced HR: 61 bpm BP: 120/57 mmHg Allergies - Contrast. - Contrast. M-Mode/2D Measurements LV Diastolic Dimension: 5.24 cm LV Systolic Dimension: 3.78 cm LV Septum Diastolic: 1.26 cm LV PW Diastolic: 1.23 cm AO Root Dimension: 2.9 cm Cardiac Output: 10.49 l/min LA Dimension: 5.4 cm LVOT: 2.3 cm LVOT VTI: 41.4 cm RV Base: 5.06 cm LV Stroke volume: 171.92 ml RV Length: 7.67 cm TAPSE: 1.19 cm TDI-S': 6.81 cm/s Doppler Measurements AV Peak Velocity: 3.61 m/s MV Peak E-Wave: 1.11 m/s AV Peak Gradient: 52.13 mmHg MV Peak A-Wave: 0.51 m/s AV Mean Gradient: 29 mmHg MV E/A Ratio: 2.2 LVOT Peak Velocity: 0.79 m/s MV P1/2t: 73 msec AV P1/2t: 601 msec TR Gradient:41.22 mmHg PV Peak Velocity: 1.38 m/s Estimated RAP:8 mmHg PV Peak Gradient: 7.62 mmHg Estimated RVSP: 49 mmHg Estimated PASP: 49.22 mmHg E' Septal Velocity: 0.07 m/s A' Septal Velocity: 0.03 m/s E' Lateral Velocity: 0.08 m/s A' Lateral Velocity: 0.04 m/s Findings Left Ventricle Mild concentric left ventricular hypertrophy. Diastolic assessment reveals Grade III restrictive diastolic dysfunction. Anterior and septal warren demonstrate moderate hypokinesis. Right Ventricle Mildly dilated right ventricle with severely reduced right ventricular function. Device lead noted in the right ventricle. Left Atrium The left atrium is severely dilated. There is no evidence of patent foramen ovale or atrial septal defect by color Doppler. Right Atrium The right atrium is severely dilated. Dilated IVC with poor inspiratory collapse consistent with elevated RA pressure. Mitral Valve Mild mitral regurgitation by color Doppler. Aortic Valve There is moderate to severe aortic stenosis by the Continuity Equation. The peak velocity is 3.61 m/s and the mean gradient is 29 mmHg. There is mild to moderate aortic regurgitation by color Doppler. Tricuspid Valve Mild-moderate tricuspid regurgitation by color Doppler. There is moderate pulmonary hypertension. The pulmonary pressure (RVSP) is 49 mmHg. Pulmonic Valve Normal pulmonic valve structure and function. Pericardial Effusion No evidence of pericardial effusion. Miscellaneous The ascending aorta appears mildly dilated. The maximum diameter measures 4.3 cm. Pleural Effusion Pleural effusion present. Signature dtt: Hardik Berrios (cardio) dtd: 06/04/17 0753 Physician Self Edit
--- NOTE | ~2017-06-03 | HP ---
PATIENT'S NAME: OLGA FOSTER [facility] AGE: 86 Y [address] ROOM: [id number] [place], [place] [address] LOCATION: GICU ADMIT DATE: 06/03/2017 History & Physical DISCHARGE DATE: FAMILY PHYSICIAN: Remy Gilman MD ATTENDING PHYSICIAN: EMMA PEREZ DATE OF SERVICE: CHIEF COMPLAINT: Fever, chest pain, and neck pain. HISTORY OF PRESENT ILLNESS: An 86-year-old gentleman with multiple comorbidities including congestive heart failure, COPD, chronic kidney disease, history of pulmonary artery disease, who was a resident of an assisted living facility, recently had left septic olecranon bursitis, status post irrigation and debridement, on Augmentin. Had chest pain which was sharp in character on the right side, initially started in the neck, on movement reached the chest, 10, has been taking Percocet for it for many days now. Alleviated with movement and relieved with rest. Not associated with any shortness of breath, diaphoresis, or anxiety. He also endorsed that he has been feeling feverish for past 2 days now and temperature was taken at the nursing facility and he was found to have a fever of 101. In addition, he told me his primary care physician, Dr. Gilman, also started him on spironolactone in addition to his metolazone as well as Bumex and his swelling has completely gone away and he feels thirsty. He is accompanied by his daughter today who is the caregiver. Further inquiry did not reveal any headache, any trouble with the eyes, any trouble swallowing, but revealed decreased appetite, constipation, but no diarrhea, no burning on urination. No PND or orthopnea. REVIEW OF SYSTEMS: All other systems reviewed and were negative except for what is mentioned in the HPI. ALLERGIES: HE IS SEVERELY ALLERGIC TO IV CONTRAST. HE CANNOT TAKE COUMADIN BECAUSE OF THE MULTIPLE GI BLEEDS. CHLORHEXIDINE. PAST MEDICAL HISTORY: CKD stage 3 to 4 with a baseline creatinine around 1.6 to 2; hyponatremia; paroxysmal atrial fibrillation, not on any anticoagulation given the very bad history of GI bleeds; congestive heart failure, 30% ejection fraction, status post AICD; COPD; left atrial appendage clot; ischemic cardiomyopathy; Parkinson's; xhjrgehm-[id number] aortic stenosis; history of CVA; history of abdominal aortic aneurysm, status post stenting. PATIENT'S NAME: OLGA FOSTER [facility] AGE: 86 Y [address] ROOM: [id number] [place], [place] [address] LOCATION: [facility] ADMIT DATE: 06/03/2017 History & Physical DISCHARGE DATE: FAMILY PHYSICIAN: Remy Gilman MD ATTENDING PHYSICIAN: EMMA PEREZ MEDICATIONS: Being reconciled right now. SOCIAL HISTORY: No ongoing toxic habits reported today. FAMILY HISTORY: Negative for any premature coronary artery disease. PHYSICAL EXAMINATION: VITAL SIGNS: On arrival to the emergency department, fever was 100, blood pressure has been in 100/70s, respiratory rate of 14, heart rate of 72. GENERAL: In no acute distress. Saying that he is little cold. Alert and oriented x3. HEENT: Head; atraumatic, normocephalic. Eyes; nonicteric, no pallor. Oropharynx; dry mucous membranes. CARDIOVASCULAR: Variable S1, S2. Systolic ejection murmur grade 3/6 noted in the aortic region. CHEST: Tender to palpation on the right side. MUSCULOSKELETAL: Neck pain elicited on the left side with movement. No other joint tenderness noted. Left elbow status post irrigation and debridement. Surgical site without any purulence. SKIN: Dry. No blemishes noted. ENDOCRINE: Gynecomastia noted. No thyromegaly or myxedema noted. LUNGS: Decreased air entry bilaterally at the bases. Otherwise, no expiratory wheezes, crepitations. ABDOMEN: Soft, nontender, nondistended. Bowel sounds present. EXTREMITIES: No clubbing, cyanosis, or edema. PSYCH: Normal affect, mood, and speech. NEUROLOGIC: Cranial nerves 2 through 12 intact. No motor or sensory deficits noted. LABORATORY DATA: Lab work done in the emergency department revealed a chest x-ray which did not reveal any acute infiltrate or pulmonary edema. CBC was impressive for a white count of 19, and BMP was impressive for a creatinine of 2.1. Procalcitonin was elevated at 2.1. Troponin level elevated at 0.62 to 0.54. ProBNP was not done today. ASSESSMENT: 1. Sepsis, not severe, unknown etiology. 2. Anemia of chronic disease. 3. Acute kidney injury on chronic kidney disease stage 3 to 4. 4. Hyponatremia. PATIENT'S NAME: OLGA FOSTER [facility] AGE: 86 Y [address] ROOM: [id number] [place] [address] LOCATION: CU ADMIT DATE: 06/03/2017 History & Physical DISCHARGE DATE: FAMILY PHYSICIAN: Remy Gilman MD ATTENDING PHYSICIAN: EMMA PEREZ 5. Paroxysmal atrial fibrillation, not on any anticoagulation. 6. Congestive heart failure, systolic in nature, 30% ejection fraction, status post AICD. 7. Chronic kidney disease stage 3. 8. Left atrial appendage clot, not on any long-term anticoagulation due to gastrointestinal bleed. 9. Ischemic cardiomyopathy. 10. Chronic obstructive pulmonary disease without exacerbation. 11. Parkinson's. 12. Uirlzovs-gx-ufwcuq aortic stenosis. 13. History of cerebrovascular accident. 14. Abdominal aortic aneurysm, status post stenting. PLAN: We are going to start the sepsis protocol with cautious volume resuscitation given low EF and chronic kidney disease. Time of identification of sepsis was 8 p.m. Two sets of blood cultures, and broad-spectrum antibiotics have been administered. Intravenous volume resuscitation with caution is in progress. There is no obvious overt source of infection at this point. We will obtain urinalysis, sputum cultures, and monitor the patient. We will monitor CBC, procalcitonin, and BMP in the morning. Troponins are mildly elevated, which is secondary to myocardial injury in the setting of sepsis as well as CKD as well as chronic congestive heart failure. SCDs for DVT prophylaxis as the patient does not want to take any sort of blood thinners due to history of GI bleed. Further recommendations will depend upon his course in the hospital. Code status was discussed with the patient, and the patient is full code. MD CASTRO GIVENS/ignacio /[id number] D: [id number] T: [id number] HISTORY & PHYSICAL
--- NOTE | ~2017-06-03 | CON ---
PATIENT'S NAME: OLGA FOSTER [facility] AGE: 86 Y [address] ROOM: [place] [address] LOCATION: GPCU ADMIT DATE: 06/03/2017 Consultation DISCHARGE DATE: FAMILY PHYSICIAN: Remy Gilman MD ATTENDING PHYSICIAN: EMMA PEREZ DATE OF CONSULTATION: 06/05/2017 REFERRING PHYSICIAN: SAUD JACOBSEN LOCATION: PCU, room 6312. REFERRING PROVIDER: Lina Chavez APRN CHIEF COMPLAINT: Palliative care referral for code status and goals of care discussion. HISTORY OF PRESENT ILLNESS: The patient is an 86-year-old gentleman who was admitted through ER with fever, right-sided chest pain, and decreased level of consciousness. The patient also has a history of multiple comorbidities including congestive heart failure, COPD, chronic kidney disease, ischemic cardiomyopathy, Parkinson's, and paroxysmal atrial fibrillation. He also has a history of multiple hospitalizations this year, most recently 2 hospitalizations related to sepsis, status post I and D of left elbow olecranon bursa with excision of olecranon bursa. The patient recently moved to [facility] with his who has dementia. Prior to this, he had a short stay at the [facility], but before that, was living in his own home, acting as primary caregiver for his . At the current time, the patient is alert and oriented x3. He denies any pain. Denies shortness of breath. Denies chest pain. Does get to the bathroom with 2 assist. Reports that his appetite is fair. Denies any nausea, vomiting, diarrhea, or constipation. Reports that he feels "pretty good" today. Given his multiple comorbidities and recurrent hospital admissions, Palliative Care has been consulted to assist with code status discussion as well. PAST SURGICAL HISTORY: 1. Lumbar surgery. 2. TURP. 3. Pacemaker AICD placement in 2011. 4. History of bladder tumor removal. 5. AAA repair. 6. Heart catheterization. 7. I and D of left elbow with excision of olecranon bursa. PATIENT'S NAME: OLGA FOSTER [facility] AGE: 86 Y [address] ROOM: [place] [address] LOCATION: GPCU ADMIT DATE: 06/03/2017 Consultation DISCHARGE DATE: FAMILY PHYSICIAN: Remy Gilman MD ATTENDING PHYSICIAN: EMMA PEREZ 8. Left elbow arthroscopy with I and D and limited synovectomy. PAST MEDICAL HISTORY: 1. Chronic kidney disease with a baseline creatinine of 1.62. 2. Hyponatremia. 3. Paroxysmal atrial fibrillation, not on any anticoagulation due to history of GI bleeds. 4. Congestive heart failure. 5. Ischemic cardiomyopathy, last ejection fraction was 30%, status post AICD placement. 6. COPD. 7. Left atrial appendage clot. 8. Severe aortic stenosis. 9. History of CVA. 10. History of abdominal aortic aneurysm. 11. Parkinson's. 12. Coronary artery disease. 13. Gout. 14. Hyperlipidemia. 15. Hypothyroidism. 16. GERD. HOME MEDICATION LIST: 1. Tylenol 650 mg as needed. 2. Albuterol nebulizer 4 times daily. 3. Allopurinol 200 mg daily. 4. Amiodarone 200 mg daily. 5. Augmentin 875/125 one tablet twice daily. 6. Lipitor 20 mg daily. 7. Symbicort 2 puffs twice daily as needed. 8. Bumex 2 mg twice daily. 9. Sinemet 25/100 one tablet twice daily. 10. Voltaren gel as needed. 11. Digoxin 125 mcg 2 times per week. 12. Guaifenesin as needed. 13. Levothyroxine 112 mcg daily. 14. Milk of magnesia as needed. 15. Magnesium oxide 400 mg daily. 16. Zaroxolyn 2.5 mg 3 times a week. 17. Nystatin topical as needed. 18. Percocet 5/325 one tablet every 4 hours as needed. 19. Protonix 40 mg daily. 20. Potassium chloride 40 mEq daily. 21. Sennosides 2 tablets as needed. 22. Spironolactone 12.5 mg 3 times a week. PATIENT'S NAME: OLGA FOSTER [facility] AGE: 86 Y [address] ROOM: [id number] [place] [id number] LOCATION: GPCU ADMIT DATE: 06/03/2017 Consultation DISCHARGE DATE: FAMILY PHYSICIAN: Remy Gilman MD ATTENDING PHYSICIAN: KHALID,CARTER A ALLERGIES: IODINATED CONTRAST. SOCIAL HISTORY: The patient is and lives with his who has dementia. They recently moved to [facility]. He has a history of smoking since the age of 21, he quit in 2011. He has a daily drink once a day and reports that he has cut down since moving to the assisted living. FAMILY HISTORY: The patient's mother lived to be age 103. His father in his 60s of a lung injury and a brother with diabetes and cancer. REVIEW OF SYSTEMS: GENERAL: Appetite has been good. Denies any changes in his weight. Positive for fatigue. He has had some fevers at home, denies any since being here. Denies night sweats. HEENT: No changes in vision or hearing. No headaches. No sinus congestion. RESPIRATORY: Denies shortness of breath or cough. CARDIOVASCULAR: No chest pain, pressure, or palpitations. Does have swelling in his feet and ankles. GASTROINTESTINAL: No nausea, vomiting, diarrhea, or constipation. Denies difficulties chewing or swallowing. GENITOURINARY: Denies dysuria. MUSCULOSKELETAL: No joint swelling or joint pain. Denies any current neck or chest pain. Denies any recent falls. Does require some assistance with getting up to the bathroom. NEUROLOGIC: Denies numbness or tingling. No seizures. INTEGUMENTARY: No rashes or open areas. HEMATOLOGICAL: No new bruising or bleeding. PSYCHIATRIC: Denies feeling overly depressed or anxious. Denies insomnia. PHYSICAL EXAMINATION: VITAL SIGNS: Blood pressure 104/52, heart rate 59, temperature 97.7, respirations 12, and O2 saturation 95% on room air. GENERAL: An elderly, white gentleman who is alert and oriented x3. Does not appear to be in any acute distress. HEENT: Normocephalic, atraumatic. Pupils are equal and reactive to light. Tongue and mucous membranes are moist and pink. He does have dentures. CARDIOVASCULAR: Heart sounds regular rate and rhythm. He does have a paced rhythm on the monitor. Does also have a murmur. RESPIRATORY: Respirations are regular and nonlabored. Lung sounds are clear and diminished bilaterally. I am not able to note any rales, rhonchi, or wheezes. PATIENT'S NAME: SCOTT FOSTERN Luke [facility] AGE: 86 Y [address] ROOM: [id number] [place], [place] [address] LOCATION: GPCU ADMIT DATE: 06/03/2017 Consultation DISCHARGE DATE: FAMILY PHYSICIAN: Remy Gilman MD ATTENDING PHYSICIAN: EMMA PEREZ GASTROINTESTINAL: Abdomen is soft and nontender. Bowel sounds are present. No masses or organomegaly. MUSCULOSKELETAL: No significant joint deformities. Peripheral pulses are 1+ bilaterally. He does have 1 to 2+ pedal edema. SKIN: Warm and dry. No new unusual lesions or rashes. NEUROLOGIC: Grossly intact. IMPRESSION AND PLAN: 1. Deconditioning. The patient reported he does have home health and therapies at the assisted living facility. Would recommend initiating PT and OT while here in the hospital as well. 2. Code status discussion. I have discussed code status with both the patient and his daughter Josselyn who is also his power of trade mark attorney. At this point, both of them agree to a do not resuscitate/do not intubate code status, but want to be sure that we all understand that they still want him to get full treatment otherwise. Provided education to them on this and reassured them that just because he does not want to be resuscitated, does not mean that we will not treat him. Given this, I did provide information to them on the POLST form and assisted them with completing a POLST form for both the patient as well as his who has dementia. Visited with both Olga and Josselyn in regard to his goals for treatment, and both report that they want to be treated as long as this is something that is fixable. They do not see the point in treating if it is futile care. In completing the POLST form, they did decide upon a do not resuscitate status, would be alright for hospitalization with limited interventions. The patient was quite adamant that he would not want any long-term tube feeding and would not want hemodialysis in the long run. Josselyn does tell me in private that if it gets to the point where her father is declining and quality of life is poor, in the ideal world, she would want to take her father back to his house in [place] to let him as she tells me she hopes she never has to take him back to the pen[facility]. Discussed the difficulties with making such a promise, but reassured her that we would try to make this possible when the time does come. Answered the patient and family's questions to their satisfaction. They denied any other needs or concerns at this time. Total visit was 30 minutes, greater than 50% of this time was spent providing education and counseling on code status and advance directive. Thank you for allowing me to assist this patient and family. JOAO LOW NP FOR SU ABRAMS MD PATIENT'S NAME: OLGA FOSTER [facility] AGE: 86 Y [address] ROOM: [place] [address] [facility] AD[facility] DATE: 06/03/2017 Consultation DISCHARGE DATE: FAMILY PHYSICIAN: Remy Gilman MD ATTENDING PHYSICIAN: EMMA PEREZ/ana cristinal /[id number] d: 06/06/17 1535 t: 06/08/17 0915, CONSULTATION REPORT
--- NOTE | ~2017-06-03 | ECHO ---
Transesophageal Echocardiography Report (ASH) Demographics Patient Name OLGA FOSTER Date of Study 06/06/2017 Patient Number [id number] Visit Number [id number] Date of 1930 Room Number G6312 Gender Male Number Age 86 year(s) Referring Jamar Cervantes School Treasurer Astrid Park RD, Physician RVT Physician Interpreting Jamar Cervantes Curriculum Facilitator Physician MD Supervising Ordering Jamar Cervantes MD/ROSALBAP Physician MD Nurse Stress Chief Librarian Circulation Department Conclusions Summary The left ventricle ejection fraction appeas normal . There is no thrombus in the left atrial appendage. Mild mitral annular calcification. Mild mitral regurgitation by color Doppler. The aortic valve is moderately sclerotic. No vegetation seen. Procedure Type of Study ASH procedure Procedure Date Date: 06/06/2017 Start: 01:09 PM Study Location: Inpatient Portable Technical Quality: Adequate visualization Appropriate Use Criteria: 9 Patient Status: Routine Rhythm: Within normal limits HR: 61 bpm BP: 146/69 mmHg Allergies - Contrast. - Contrast. Findings Left Ventricle The left ventricle ejection fraction appeas normal . Left Atrium There is no thrombus in the left atrial appendage. Mitral Valve Mild mitral annular calcification. Mild mitral regurgitation by color Doppler. Aortic Valve The aortic valve is moderately sclerotic. Tricuspid Valve The tricuspid valve is not well visualized due to shadowing form the device lead. Contractility Score LV regional wall motion:(0-Non visualized 1-Normal 2-Hypokinesis 3-Akinesis 4-Dyskinesis 5-Aneurysm) Signature dtt: Helen Roldan dtd: 06/06/17 1309 Physician Self Edit
[~2017-06-03 18:00] MED LIST changes: -AUGMENTIN 875-1 EACH PO; -BUMETANIDE2 MG PO; -CIPRO500 MG PO; -LEVAQUIN 250 M250 MG PO; -SPIRONOLACTONE25 MG PO
[2017-06-03 18:17] LABS: BASOPHIL % 0.2 %; EOSINOPHIL # 0.1 K/uL (0.0-0.5); EOSINOPHIL % 0.3 %; HEMATOCRIT 32.1 % (33.0-50.0); HEMOGLOBIN 10.4 g/dL (11.0-16.0); IMMATURE GRANULOCYTE # 0.1 K/uL (0.0-0.3); IMMATURE GRANULOCYTE % 0.6 %; LYMPHOCYTE # 0.5 K/uL (0.8-4.0); LYMPHOCYTE % 2.8 %; MCH 32.2 pg (27.0-34.0); MCHC 32.4 gm/dL (32.0-36.5); MONOCYTE # 0.9 K/uL (0.0-1.0); MONOCYTE % 4.8 %; MPV 10.5 fl (9.4-12.4); NEUTROPHIL # (ANC) 17.9 K/uL (1.4-9.0); NEUTROPHIL % 91.3 %; NRBC % 0 /100WBC (0-0.00); RBC 3.23 M/uL (3.50-5.50); RDW-CV 15.6 % (11.9-14.6)
[2017-06-03 18:18] LABS: MCV 99.4 fl (83.0-98.0); PLATELET COUNT 296 K/uL (150-450); WBC 19.6 K/uL (4.0-11.0)
[2017-06-03 18:25] LABS: PROTIME 10.5 SECONDS (9.8-11.4); PTT 27 SECONDS (25-32)
[2017-06-03 18:39] LABS: ANION GAP 16.7 (10.0-19.0); CALCIUM 8.8 mg/dL (8.5-10.5); CREATININE 2.1 mg/dL (0.6-1.3); MAGNESIUM 1.8 mg/dL (1.8-2.6); POTASSIUM 3.7 mMol/L (3.7-5.1); TOTAL BILIRUBIN 0.7 mg/dL (0.0-1.5); TOTAL PROTEIN 7.8 g/dL (6.0-8.4)
[2017-06-03 18:54] LABS: BICARBONATE 33.5 mmol/L (18.0-23.0); LACTATE 1.5 mEq/L (0.50-1.60); PCO2 43 mmHg (35-45); PO2 35 mmHg (80-90)
[2017-06-03] MEDS ORDERED: BUMETANIDE2 MG PO (22:38)
[2017-06-03] MEDS ORDERED: SPIRONOLACTONE25 MG PO (22:40)
[2017-06-03] MEDS ORDERED: AUGMENTIN 875-1 EACH PO (22:50)
[2017-06-03 23:47] LABS: BICARBONATE 32.8 mmol/L (18.0-23.0); PCO2 43 mmHg (35-45)
[2017-06-03 23:48] LABS: PO2 68 mmHg (80-90)
--- NOTE | 2017-06-04 01:11 | NUR ---
Patient arrived to the floor at 2209 on 06/03/17 accompanied by daughter and NURSE ADVOCATE. Patient is alert and oriented x 3 but forgetful. Patient presented to the ER with chest pain and fevers. EKG negative. Patient's temperature was 97.8 upon arrival to the floor. [facility] and was dismissed on 05/23/17. Patient is currently on 1L O2 to keep sats above 93%. Lung sounds clear and diminshed. History of afib, but patient is currently paced. VSS.
--- NOTE | 2017-06-04 02:07 | NUR ---
Significant Event: Patient is alert and oriented but forgetful at times. VSS on 1L O2. Patient is paced. Lung sounds clear and dim. No BM. Patient voids via bedside commode with 80ml out. PRN percocet given x1 for chest pain. PIV to right hand with LR at 100ml/hr. Activity as tolerated. Follow up: Echo, neck x-ray in am. Nephrology consult. Need UA.
[2017-06-04 02:23] LABS: HEMATOCRIT 26.7 % (33.0-50.0); HEMOGLOBIN 8.7 g/dL (11.0-16.0); MCH 32.6 pg (27.0-34.0); MCHC 32.6 gm/dL (32.0-36.5); MPV 10.4 fl (9.4-12.4); PLATELET COUNT 258 K/uL (150-450); RBC 2.67 M/uL (3.50-5.50); RDW-CV 15.6 % (11.9-14.6); WBC 16.6 K/uL (4.0-11.0)
[2017-06-04 02:34] LABS: ANION GAP 12.2 (10.0-19.0); CALCIUM 8.3 mg/dL (8.5-10.5); CREATININE 1.9 mg/dL (0.6-1.3); POTASSIUM 3.2 mMol/L (3.7-5.1)
[2017-06-04 03:49] LABS: ABSOLUTE NEUTROPHIL CT (ANC) 15.4 K/uL (1.4-9.0); LYMPHOCYTE # 0.5 K/uL (0.8-4.0); LYMPHOCYTE % 3 %; MONOCYTE # 0.7 K/uL (0.0-1.0); SEGMENTED NEUTROPHIL # 15.4 K/uL (1.4-9.0); SEGMENTED NEUTROPHIL % 93 %
--- NOTE | 2017-06-04 05:47 | NUR ---
Significant Event: PATIENT ALERT/ORIENTED X3, FOLLOWS COMMANDS, VITAL SIGNS WNL, LR BOLUS GIVEN, SLEPT ALL NIGHT, VOIDS TO URINAL, SLEPT ALL NIGHT, TRANSFER TO PCU Follow up:
[2017-06-04 05:59] LABS: BILIRUBIN URINE NEGATIVE (NEGATIVE); BLOOD URINE NEGATIVE /UL (NEGATIVE); COLOR URINE YELLOW (YELLOW); GLUCOSE URINE NEGATIVE (NEGATIVE); KETONE URINE NEGATIVE (NEGATIVE); LEUKOCYTES URINE 100 /UL (NEGATIVE); NITRITE URINE NEGATIVE (NEGATIVE); PROTEIN URINE 15 mg/dL (NEGATIVE); TURBIDITY URINE CLEAR (CLEAR); UROBILINOGEN URINE NORMAL (NORMAL)
[2017-06-04 06:12] LABS: RBC URINE NEGATIVE #/HPF (NEGATIVE)
[2017-06-04 06:13] LABS: BACTERIA URINE RARE (NEGATIVE)
--- NOTE | 2017-06-04 13:08 | NUR ---
Introduced self and care management services to patient. Living at [facility] again, had gone to [facility] [employer] on discharge from previous hospital stay. Too soon to know what needs will be on discharge this time. Daughter not in room. Called [facility] and talked with nurse, gave update of pt condition. She reports pt was doing okay there, still weak and getting weaker right before went back in to hospital. Daughter sets up pill box for patient and his to save money. Getting therapy services at [facility]. They will accept back on discharge. Will follow.
--- NOTE | 2017-06-04 19:24 | NUR ---
Significant Event:Patient 's home meds restarted. Voiding per bedside commode. Is on room air. No c/o pain. Antibiotics changed. Started on fluid restrict. Follow up:Continue to monitor
[2017-06-05 05:08] LABS: ALBUMIN 2.3 gm/dL (3.5-5.0); ANION GAP 11.7 (10.0-19.0); CALCIUM 8.8 mg/dL (8.5-10.5); CREATININE 1.7 mg/dL (0.6-1.3); PHOSPHORUS 2.6 mg/dL (2.5-4.9); POTASSIUM 3.7 mMol/L (3.7-5.1)
--- NOTE | 2017-06-05 05:44 | NUR ---
Significant Event: PATIENT A/O X 3, COOPERATIVE WITH CARES. VSS. CONT ON RA SATS >90%. NEW IV PLACED TO R)PFA. UP WITH 2 ASSIT TO COMMODE, TOLERATES FAIR. PATIENT TURNED Q 2 HRS, RESTED ON AND OFF OVERNIGHT. Follow up: CONTINUE TO MONITOR PER PLAN OF CARE.
--- NOTE | 2017-06-05 18:47 | NUR ---
Significant Event:Patient has been up in chair. Voids per commode. Transfering better. Pallative care consult, Mary Ellen saw. Dr. Peralta did make patient a DNR/DNI. Will have a ASH in am, Dr. George has agreed to do it. He will see patient tonight. Remains on room air. Appetite fair. Follow up:ASH in am to check for vegetation on valves
[2017-06-06 04:27] LABS: BASOPHIL % 0.3 %; EOSINOPHIL # 0.3 K/uL (0.0-0.5); EOSINOPHIL % 2.7 %; HEMATOCRIT 25.1 % (33.0-50.0); IMMATURE GRANULOCYTE # 0.1 K/uL (0.0-0.3); IMMATURE GRANULOCYTE % 0.4 %; LYMPHOCYTE # 0.7 K/uL (0.8-4.0); MCH 31.9 pg (27.0-34.0); MCHC 31.9 gm/dL (32.0-36.5); MONOCYTE # 0.6 K/uL (0.0-1.0); MONOCYTE % 5.5 %; MPV 10.7 fl (9.4-12.4); NEUTROPHIL # (ANC) 9.7 K/uL (1.4-9.0); NEUTROPHIL % 85.1 %; NRBC % 0 /100WBC (0-0.00); PLATELET COUNT 241 K/uL (150-450); RBC 2.51 M/uL (3.50-5.50); RDW-CV 15.7 % (11.9-14.6); WBC 11.4 K/uL (4.0-11.0)
[2017-06-06 04:35] LABS: ALBUMIN 2.3 gm/dL (3.5-5.0); CALCIUM 8.4 mg/dL (8.5-10.5); CREATININE 1.6 mg/dL (0.6-1.3); PHOSPHORUS 2.5 mg/dL (2.5-4.9)
--- NOTE | 2017-06-06 04:42 | NUR ---
Significant Event: PT A/O X3. VSS SBP 100-120 HR 60'S SATS 95% RA. PT NPO SINCE MIDNIGHT WILL BE HAVING ASH SOMETIME TODAY. PT ON FLUID RESTRICTION OF 1.5 L. PT IV LEFT FOREARM WITH MERREM Q8HR. PT IS PACED. PT IS 2 ASSIST TO BATHROOM. DENIES PAIN. PT IS DNR-DNI. Follow up: FOLLOW CARE PLAN
--- NOTE | 2017-06-06 11:31 | NUR ---
1115 Reviewed Ellen' chart, talked with DONY Camargo. She states that he is going to go down for a ASH today. I left a sticky note in the chart asking that MD orders PT/OT/ST on him if not already ordered as he was at an [facility] with [facility] before and that is the goal upon dismissal to get him back there. If he can't go back to [facility], he would need SNF so we would need therapies on board for that as well. CM to continue to follow and assist.
--- NOTE | 2017-06-06 17:42 | NUR ---
Significant Event: pt up to commode often, 3 loose bms and voids well. 2 asst to get up out chair. Pt had ASH this afternoon. Pt was on bedrest but done with that now. Breathing tx given before procedure so pt did not have trouble with tube in throat. Home meds to chart poss. dc tomorrow. Follow up:
[2017-06-07 04:00] LABS: BASOPHIL % 0.3 %; EOSINOPHIL # 0.3 K/uL (0.0-0.5); EOSINOPHIL % 2.8 %; HEMATOCRIT 25.2 % (33.0-50.0); HEMOGLOBIN 8.2 g/dL (11.0-16.0); IMMATURE GRANULOCYTE % 0.4 %; LYMPHOCYTE # 0.8 K/uL (0.8-4.0); LYMPHOCYTE % 8.4 %; MCH 32.3 pg (27.0-34.0); MCHC 32.5 gm/dL (32.0-36.5); MCV 99.2 fl (83.0-98.0); MONOCYTE # 0.6 K/uL (0.0-1.0); MONOCYTE % 6.4 %; MPV 10.3 fl (9.4-12.4); NEUTROPHIL # (ANC) 8.1 K/uL (1.4-9.0); NEUTROPHIL % 81.7 %; NRBC % 0 /100WBC (0-0.00); PLATELET COUNT 267 K/uL (150-450); RBC 2.54 M/uL (3.50-5.50); RDW-CV 15.8 % (11.9-14.6)
[2017-06-07 04:14] LABS: ALBUMIN 2.4 gm/dL (3.5-5.0); ANION GAP 11.8 (10.0-19.0); CALCIUM 8.6 mg/dL (8.5-10.5); CREATININE 1.6 mg/dL (0.6-1.3); PHOSPHORUS 3.1 mg/dL (2.5-4.9); POTASSIUM 3.8 mMol/L (3.7-5.1)
--- NOTE | 2017-06-07 04:45 | NUR ---
Pt is a/o x4. vss on RA, afebrile. IV SL. 1PA gb/FWW/BSC. Pt has accuchecks bid at meals and prn- checked at hs was 216- refused prn insulin. Denies pain throughout shift. Pt remains paced rhythym in the 60's. Open area on Right buttcheek- q2 turned patient all noc. Unable to get stool sample as pt voided in bucket when he stooled. Plan: discharge planning in process, ? placement?
--- NOTE | 2017-06-07 11:25 | NUR ---
Significant Event: Pt up to commode for voids/stools. PT here to eval.pt strength for home. CHF teaching to be done. DC orders recd. Pt daughter will come for pt. Follow up:
--- NOTE | 2017-06-07 11:40 | NUR ---
Talked with who tells me that he has done dismissal orders on Rosanna and he is planning on sending him back to [facility] today. has talked with Ellen' daughter/POChamp Arcos already about this and according to him, she is fine with him going back today and will be here later this afternoon to pick him up. I did talk with about therapies not working with Rosanna yet and if was going back to [facility] today, I would like to make sure that they evaluate him first to make sure that he is [facility] appropriate first. agrees with this suggestion. He phoned up to [facility], talked with João' RN Mary Jo, asked that she write an order for therapies to see Rosanna stat to make sure that he is [facility] appropriate. CM plans to see Rosanna later and follow up with [facility] re:Ellen' return to them today and also make sure that therapies did work with him before going. Will make sure orders are faxed over to [facility] and [facility] upon dismissal. CM to continue to follow and assist.
[2017-06-07] MEDS ORDERED: CIPRO500 MG PO (11:52)
[2017-06-07] MEDS ORDERED: DULERA 200 MCG/51 EA INH (11:57)
--- NOTE | 2017-06-07 17:28 | NUR ---
Significant Event: dr wilkins pt dc. PT amb pt 150ft ok with his walker and pt got up from commode well.,just when is too low seat has trouble getting up. CHF teaching done, daughter refused calendar. RX given, home health to see pt, iv dcd intact, pt dc by wc to daughter car Follow up:
[2017-07-05] MEDS ORDERED: LEVAQUIN 250 M250 MG PO (16:04)
== END 2017-06-07 16:30 | disposition disaster alternative care site (69) | DRG 871 ==
LOC: GMED 18:00 → GPCU 20:43 → GICU 20:43 → GPCU 06-04 05:51
PROVIDERS: Emergency Medicine; Family Medicine; Nurse Practitioner; ADMIT Internal Medicine
DX: A41.9 Sepsis, unspecified organism (principal); L89.153 Pressure ulcer of sacral region, stage 3; N18.4 Chronic kidney disease, stage 4 (severe); E11.22 Type 2 diabetes mellitus with diabetic chronic kidney disease; I13.0 Hypertensive heart and chronic kidney disease with heart failure and stage 1 through stage 4 chronic kidney disease, or unspecified chronic kidney disease; N17.9 Acute kidney failure, unspecified; I48.0 Paroxysmal atrial fibrillation; I50.42 Chronic combined systolic (congestive) and diastolic (congestive) heart failure; E87.1 Hypo-osmolality and hyponatremia; G20 Parkinson's disease; D63.8 Anemia in other chronic diseases classified elsewhere; I25.5 Ischemic cardiomyopathy; I35.0 Nonrheumatic aortic (valve) stenosis; J44.9 Chronic obstructive pulmonary disease, unspecified; Z51.5 Encounter for palliative care; E87.6 Hypokalemia; L98.419 Non-pressure chronic ulcer of buttock with unspecified severity; I28.9 Disease of pulmonary vessels, unspecified; Z86.73 Personal history of transient ischemic attack (TIA), and cerebral infarction without residual deficits; Z95.810 Presence of automatic (implantable) cardiac defibrillator; E83.42 Hypomagnesemia; K59.00 Constipation, unspecified; E03.9 Hypothyroidism, unspecified
CPT/HCPCS: J0878; J2020; J2185; J2543; J3480; J7030; J7040; J7050; J7120

== ENCOUNTER → 2017-06-20 | Outpatient (CLI) | payer MEDICARE, OTHER ==
[~2017-06-20] MED LIST changes: +AUGMENTIN 875-1 EACH PO; +BUMETANIDE2 MG PO; +CIPRO500 MG PO; +LEVAQUIN 250 M250 MG PO; +SPIRONOLACTONE25 MG PO
== END ==
LOC: LGSMG 15:15
DX: I50.42 Chronic combined systolic (congestive) and diastolic (congestive) heart failure (principal); Z79.899 Other long term (current) drug therapy